=== PATIENT | male | born 1960 | race Caucasian/White ===

== ENCOUNTER 2024-03-16 10:29 | Outpatient (OUT) | payer BC, SELFPAY ==
[2024-03-16 11:04] LABS: Basophils Percent Auto 0.7 % (0.2-2.0); Eosinophils Absolute Auto 0.1 10^3/uL (0.0-0.7); Eosinophils Percent Auto 1.8 % (0.9-7.0); Hematocrit 32.4 % (42.0-54.0); Hemoglobin 10.7 g/dL (14.0-18.0); Immature Granulocytes Abs Auto 0.08 10^3/uL (0.00-0.03); Immature Granulocytes Pct Auto 2.8 % (0.0-0.5); Lymphocytes Absolute Auto 0.9 10^3/uL (1.2-3.8); Lymphocytes Percent Auto 31.6 % (20.5-60.0); Mean Corpuscular Hemoglobin 33.9 pg (25.9-34.0); Mean Corpuscular Volume 102.5 fL (80.0-94.0); Mean Platelet Volume 11.4 fL (9.5-13.5); Monocytes Absolute Auto 0.5 10^3/uL (0.3-0.8); Monocytes Percent Auto 19.1 % (1.7-12.0); Neutrophils Absolute Auto 1.2 10^3/uL (1.4-6.5); Platelet Count 145 10^3/uL (150-450); Red Blood Count 3.16 10^6/uL (4.70-6.10); White Blood Count 2.8 10^3/uL (4.0-11.0)
[2024-03-16 11:11] LABS: Estimated Average Glucose 177 mg/dL; Glycohemoglobin A1C 7.8 % (4.5-6.2)
[2024-03-16 11:22] LABS: Microalbumin Urine Random <1.3 mg/dL (<=30.0)
[2024-03-16 11:50] LABS: Cholesterol 85 mg/dL (<=200); HDL Cholesterol 28 mg/dL (40-60); Triglycerides 92 mg/dL (<=150); VLDL CHOLESTEROL 18.4 mg/dL
[2024-03-16 12:04] LABS: Prostate Specific Antigen Scrn 0.63 ng/mL (<=4.00)
== END 2024-03-16 10:30 | disposition home or self-care (01) ==
LOC: LAB 10:33
PROVIDERS: PCP Internal Medicine; Visit Provider Internal Medicine
DX: Z00.00 Encounter for general adult medical examination without abnormal findings (principal)
CPT/HCPCS: 36415; 80061; 82043; 83036; 85025; G0103

== ENCOUNTER 2024-09-04 12:05 | Outpatient (OUT) | payer BC, SELFPAY ==
[2024-09-04 13:11] LABS: Basophils Percent Auto 0.8 % (0.2-2.0); Eosinophils Percent Auto 0.8 % (0.9-7.0); Hematocrit 29.8 % (42.0-54.0); Hemoglobin 9.8 g/dL (14.0-18.0); Immature Granulocytes Abs Auto 0.05 10^3/uL (0.00-0.03); Immature Granulocytes Pct Auto 2.1 % (0.0-0.5); Lymphocytes Absolute Auto 0.7 10^3/uL (1.2-3.8); Lymphocytes Percent Auto 30.5 % (20.5-60.0); Mean Corpuscular HGB Conc 32.9 g/dL (29.9-35.2); Mean Corpuscular Hemoglobin 34.6 pg (25.9-34.0); Mean Corpuscular Volume 105.3 fL (80.0-94.0); Mean Platelet Volume 11.9 fL (9.5-13.5); Monocytes Absolute Auto 0.6 10^3/uL (0.3-0.8); Monocytes Percent Auto 22.6 % (1.7-12.0); Neutrophils Absolute Auto 1.1 10^3/uL (1.4-6.5); Neutrophils Percent Auto 43.2 % (43.0-75.0); Platelet Count 104 10^3/uL (150-450); Red Cell Distribution Width 14.3 % (11.0-15.0); White Blood Count 2.4 10^3/uL (4.0-11.0)
[2024-09-04 13:24] LABS: Chol HDL Ratio 2.8; Cholesterol 109 mg/dL (<=200); HDL Cholesterol 39 mg/dL (40-60); Triglycerides 76 mg/dL (<=150); VLDL CHOLESTEROL 15.2 mg/dL
[2024-09-04 13:27] LABS: Red Blood Count 2.83 10^6/uL (4.70-6.10)
== END 2024-09-04 12:06 | disposition home or self-care (01) ==
PROVIDERS: PCP Internal Medicine; Visit Provider Internal Medicine Cardiovascular Disease
DX: E78.5 Hyperlipidemia, unspecified (principal); I25.10 Atherosclerotic heart disease of native coronary artery without angina pectoris; Z79.899 Other long term (current) drug therapy; I25.5 Ischemic cardiomyopathy; I47.20 Ventricular tachycardia, unspecified
CPT/HCPCS: 36415; 80061; 85025

== ENCOUNTER 2024-09-04 12:14 | Outpatient (OUT) | payer BC, SELFPAY ==
[2024-09-04 13:20] LABS: Lactate Dehydrogenase 217 U/L (85-227)
[2024-09-04 13:23] LABS: Percent Iron Saturation 26.9 %
[2024-09-04 13:30] LABS: Alanine Aminotransferase 16 U/L (16-63); Albumin Globulin Ratio 0.8; Albumin Level 3.4 g/dL (3.4-5.0); Alkaline Phosphatase 73 U/L (46-116); Anion Gap 7.6; Aspartate Amino Transferase 15 U/L (15-37); BUN Creatinine Ratio 14.2; Bilirubin Total 0.6 mg/dL (0.2-1.0); Calcium 8.7 mg/dL (8.5-10.1); Carbon Dioxide 32.8 mmol/L (21.0-32.0); Chloride 105 mmol/L (98-107); Estimated GFR (African America >60 (>=60 mL/min/1.73m^2); Estimated GFR (Non-African Ame 51 (>=60 mL/min/1.73m^2); Globulin 4.2 g/dL; Glucose 102 mg/dL (74-106); Potassium 4.4 mmol/L (3.5-5.1); Sodium 141 mmol/L (136-145); Thyroid Stimulating Hormone 3.814 uIU/mL (0.358-3.740); Total Protein 7.6 g/dL (6.4-8.2)
[2024-09-05 04:07] LABS: Vitamin B12 260 pg/mL (232-1245)
== END 2024-09-04 12:15 | disposition home or self-care (01) ==
LOC: LAB 12:17
PROVIDERS: PCP Internal Medicine; Visit Provider Internal Medicine
DX: E78.5 Hyperlipidemia, unspecified (principal); I10 Essential (primary) hypertension; E11.65 Type 2 diabetes mellitus with hyperglycemia; D64.9 Anemia, unspecified; R53.83 Other fatigue; D61.818 Other pancytopenia; I25.10 Atherosclerotic heart disease of native coronary artery without angina pectoris; Z79.899 Other long term (current) drug therapy; I25.5 Ischemic cardiomyopathy; I47.20 Ventricular tachycardia, unspecified
CPT/HCPCS: 36415; 80053; 80061; 82607; 82728; 82746; 83540; 83550; 83615; 84443; 85025

== ENCOUNTER 2025-02-06 10:03 | Outpatient (OUT) | payer MEDICARE, OTHER, SELFPAY ==
--- OUTSIDE RECORDS SUMMARY | 2025-02-06 10:08 | XMS_ITS | Clinical Summary ---
Author Organization [facility] Address [address] [place], [place] [address] Care Team Providers Care Harness Installer Name Role Phone Berny Donovan Primary Care Provider [phone] Allergies Active Allergy Reactions Criticality Noted Date Comments Amoxicillin Unknown 07/27/2022 Doxycycline Hyclate Unknown 07/27/2022 Fenofibrate Micronized Unknown 07/27/2022 Medications ALPRAZolam (XANAX) 1 mg tablet Take 1 mg by mouth twice daily as needed. For Anxiety 07/01/2022 Active amiodarone (PACERONE) 200 mg tablet 07/21/2022 Active atorvastatin (LIPITOR) 20 mg tablet 05/27/2022 Active carvedilol (COREG) 25 mg tablet 05/27/2022 Active clopidogrel (PLAVIX) 75 mg tablet 05/27/2022 Active digoxin (LANOXIN) 125 mcg (0.125 mg) tablet 05/27/2022 Active glipiZIDE (GLUCOTROL) 10 mg tablet 05/27/2022 Active lisinopril (ZESTRIL, PRINIVIL) 5 mg tablet 05/27/2022 Active KLOR-CON M10 10 mEq tablet 05/27/2022 Active JANUVIA 50 mg tablet 05/27/2022 Active famotidine (PEPCID) 20 mg tablet Take 20 mg by mouth twice daily. Active aspirin 81 mg cap Take by mouth. Active linaGLIPtin (TRADJENTA) 5 mg tab Take 5 mg by mouth once daily. Active baclofen (LIORESAL) 10 mg tablet Take 10 mg by mouth three times daily. 07/18/2022 Active POTASSIUM ORAL Take by mouth. Active bumetanide (BUMEX) 1 mg tablet Take 1 mg by mouth once daily. Active nitroglycerin sublingual (NITROQUICK) 0.4 mg SL tablet Dissolve 0.4 mg under the tongue every 5 minutes as needed for chest pain. Active Family History Medical History Relation Comments Cancer Mother Heart disease Mother Cancer Sister Relation Status Comments Mother Sister Social History Tobacco Use Types Packs/Day Years Used Date Smoking Tobacco: Former Cigarettes Passive Smoke Exposure: Past Smokeless Tobacco: Never Tobacco Cessation:Counseling Given: Not Answered Alcohol Use Standard Drinks/Week Comments Not Currently 0 (1 standard drink = 0.6 oz pur e alcohol) Sex and Gender Information Value Date Recorded Sex Assigned at Not on file Legal Sex Male 2:58 PM EST Gender Identity Not on file Sexual Orientation Not on file Last Filed Vital Signs Vital Sign Reading Time Taken Comments Blood Pressure 133/61 07/28/2022 3:51 PM EST Pulse 64 07/28/2022 3:51 PM EST Temperature 36.6 C (97.9 F) 07/28/2022 3:51 PM EST Respiratory Rate 18 07/28/2022 3:51 PM EST Oxygen Saturation 98% 07/28/2022 3:51 PM EST Inhaled Oxygen Concentration - - Weight 143.2 kg (315 lb 12.8 oz) 07/28/2022 3:51 PM EST Height 188 cm (6' 2 ) 07/28/2022 3:51 PM EST Body Mass Index 40.55 07/28/2022 3:51 PM EST Plan of Treatment Health Maintenance Due Date Last Done Comments Abdominal Aortic Aneurysm Screening 1960 Anxiety Screening 01/03/1978 Depression Screening 01/03/1978 HIV Screening 01/03/1978 Hepatitis C Screening 01/03/1978 Lipid Screening 01/03/1995 CT Colonography 01/03/2005 Cologuard (FIT-DNA) 01/03/2005 Colonoscopy 01/03/2005 Colorectal Cancer Screening 01/03/2005 Fecal Occult Blood 01/03/2005 Sigmoidoscopy 01/03/2005 Pneumococcal Vaccine: 50+ (2 of 2 - PCV) 01/03/2010 05/22/2006 Shingrix Vaccine (1 of 2) 01/03/2010 Diabetes Screening 12/24/2024 12/24/2021, 12/24/2021 Advance Directive Discussion 01/03/2025 Influenza Vaccine (#1) 2025 , 05/22/2012, 05/22/2006 Prostate Cancer Screening Discussion 06/18/202705/23 DTaP,Tdap,Td Vaccine (2 - Tdap) 12/13/2030 RSV Vaccine (1 - 1-dose 75+ series) 01/03/2035 Insurance BLUE ACCESS PPO Care Teams Harness Installer Relationship Specialty Start Date End Date Berny Donovan DO [address] [place] [address] PCP - General Internal Medicine 07/19/22
--- OUTSIDE RECORDS SUMMARY | 2025-02-06 10:08 | XMS_ITS | Encounter Summary ---
Author Organization [facility] Address [address] [place] [address] Phone Care Team Providers Care Anode Machine Operator Name Role Phone Berny Donovan DO Primary Care Provider [phone] Encounter Details Date Type Department Care Team (Late st Contact Info) Description 07/07/[address] [facility] [address] [place] [address] Conversion, Onbase Social History Tobacco Use Types Packs/Day Years Used Date Smoking Tobacco: Never Assessed Sex and Gender Information Value Date Recorded Sex Assigned at Not on file Legal Sex Male 9:53 AM EST Gender Identity Not on file Sexual Orientation Not on file documented as of this encounter Plan of Treatment Upcoming Encounters Date Type Department Care Team (Late st Contact Info) Description 04/04/2025 2:10 PM EST Office Visit [facility] [address] [facility] [address] [place] [id number] Maria M Love MD [address]03 [facility] [place] [address] Scheduled Orders Name Type Priority Associated Diagnoses Orde r Schedule OUTSIDE LAB SCAN Lab Ordered: 07/07/2022 documented as of this encounter Visit Diagnoses Not on filedocumented in this encounter Care Teams Anode Machine Operator Relationship Specialty Start Date End Date Berny Donovan DO [address] [place] [address] PCP - General 05/22/99 documented as of this encounter
--- OUTSIDE RECORDS SUMMARY | 2025-02-06 10:08 | XMS_ITS | Encounter Summary ---
Author Organization [facility] Address [address] [place] [address] Phone Care Team Providers Care Associate Chemist Name Role Phone Berny Donovan Primary Care Provider [phone] Encounter Details Date Type Department Care Team (Late st Contact Info) Description 08/05/2024 Scanned Document [facility] [address] [place] [address] Scanning, Generic Provider Social History Tobacco Use Types Packs/Day Years Used Date Smoking Tobacco: Former Cigarettes Q uit: 2002 Smokeless Tobacco: Never Alcohol Use Standard Drinks/Week Comments Yes 0 (1 standard drink = 0.6 oz pur e alcohol) occasional Sex and Gender Information Value Date Recorded Sex Assigned at Not on file Legal Sex Male 9:53 AM EST Gender Identity Not on file Sexual Orientation Not on file documented as of this encounter Plan of Treatment Upcoming Encounters Date Type Department Care Team (Late st Contact Info) Description 04/04/2025 2:10 PM EST Office Visit [facility] [address] [facility] [address] [place] [phone] Maria M Love MD [address]03 [facility] [address] [place] [address] Scheduled Orders Name Type Priority Associated Diagnoses Orde r Schedule Pulmonary function testing PFT Ordered: 08/05/2024 documented as of this encounter Procedures Procedure Name Priority Date/Time Associated Diagnosis Comments OUTSIDE IMAGING SCAN 08/05/2024 documented in this encounter Results * OUTSIDE IMAGING SCAN (08/05/2024) Anatomical Region Laterality Modality Other Narrative 08/05/2024 Ordered by an unspecified provider. us Generic Provider Scanning OUTSIDE SCAN Final Result documented in this encounter Visit Diagnoses Not on filedocumented in this encounter Care Teams Associate Chemist Relationship Specialty Start Date End Date Berny Donovan DO [address] [place] [address] PCP - General 05/22/99 documented as of this encounter
--- OUTSIDE RECORDS SUMMARY | 2025-02-06 10:08 | XMS_ITS | Clinical Summary ---
Author Organization [facility] Address [id number] [address] [place] [address] Care Team Providers Care Steam Pressure Chamber Operator Name Role Phone Berny Donovan Marc MERCADO Primary Care Provider [phone] Allergies Active Allergy Reactions Criticality Noted Date Comments Fenofibrate Micronized Itching 12/24/2021 Family History Medical History Relation Name Comments Cancer Father Relation Name Status Comments Father Social History Tobacco Use Types Packs/Day Years Used Date Smoking Tobacco: Former Smokeless Tobacco: Never Alcohol Use Standard Drinks/Week Comments Never 0 (1 standard drink = 0.6 oz pur e alcohol) Sex and Gender Information Value Date Recorded Sex Assigned at Not on file Legal Sex Male 9:52 AM EDT Gender Identity Not on file Sexual Orientation Not on file Last Filed Vital Signs Vital Sign Reading Time Taken Comments Blood Pressure 133/88 12/24/2021 2:44 PM EDT Pulse 72 12/24/2021 2:44 PM EDT Temperature 36.7 C (98.1 F) 12/24/2021 10:07 AM EDT Respiratory Rate 18 12/24/2021 2:44 PM EDT Oxygen Saturation 100% 12/24/2021 2:44 PM EDT Inhaled Oxygen Concentration - - Weight 136.1 kg (300 lb) 12/24/2021 10:07 AM EDT Height 188 cm (6' 2 ) 12/24/2021 10:07 AM EDT Body Mass Index 38.52 12/24/2021 10:07 AM EDT Plan of Treatment Health Maintenance Due Date Last Done Comments Depression Screening 1972 Tobacco Screening 1972 Adult BMI Screening 01/03/1978 Zoster (Shingles) Vaccine (1 of 2) 01/03/2010 Fall Risk Screening 01/03/2025 Influenza Vaccine 01/20/2025 05/05/2021 DTaP,Tdap and Td Vaccines (2 - Tdap) 12/13/203011/20 Medical Devices Not on file Insurance ANTH Care Teams Steam Pressure Chamber Operator Relationship Specialty Start Date End Date Berny Donovan DO [address] [place] [id number] PCP - General Internal Medicine 12/24/21
--- OUTSIDE RECORDS SUMMARY | 2025-02-06 10:08 | XMS_ITS | Encounter Summary ---
Author Organization [facility] Address [address] [place] [address] Phone Care Team Providers Care Bender Machine Operator Name Role Phone Berny Donovan Primary Care Provider [phone] Encounter Details Date Type Department Care Team (Late st Contact Info) Description 08/12/2024 Scanned Document [facility] [address] [place] [address] Scanning, Generic Provider Social History [...] on file Sexual Orientation Not on file COVID-19 Exposure Response Date Recorded In the last 10 days, have yo u been in contact with someone who was confirmed or suspected to have Coronavirus/COVID-19? No / Unsure 08/15/2024 10:43 AM EDT documented as of this encounter Plan of Treatment Upcoming Encounters Date Type Department Care Team (Late st Contact Info) Description 04/04/2025 2:10 PM EST Office Visit [facility] [address] [facility] [address] [place] [address] Maria M Love MD 703 [facility] [address] [place] [address] documented as of this encounter Procedures Procedure Name Priority Date/Time Associated Diagnosis Comments ECHOCARDIOGRAM 08/12/2024 documented in this encounter Results * Echocardiogram (08/12/2024) Narrative 08/12/2024 Ordered by an unspecified provider. us Generic Provider Scanning CV ECHO PROCEDURES Fin al Result documented in this encounter Visit Diagnoses Not on filedocumented in this encounter Care Teams Bender Machine Operator Relationship Specialty Start Date End Date Berny Donovan DO [address] [place] [address] PCP - General 05/22/99 documented as of this encounter
--- OUTSIDE RECORDS SUMMARY | 2025-02-06 10:08 | XMS_ITS | Clinical Summary ---
Author Organization [facility] Address [address] [place] [address] Care Team Providers Care Soaking Room Operator Name Role Phone Berny Donovan Primary Care Provider [phone] Allergies Active Allergy Reactions Criticality Noted Date Comments Amoxicillin Unknown 07/27/2022 Fenofibrate Itching,Rash Low 12/24/2021 Cephalexin Itching High 01/26/2023 Medications ALPRAZolam (Xanax) 1 MG tablet Take 1 mg by mouth in the morning and 1 mg before bedtime. Active amiodarone (Pacerone) 200 MG tablet 1 (one) time each day at the same time. 3 Active ASPIRIN 81 MG chewable tablet 1 (one) time each day at the same time. Active atorvastatin (Lipitor) 20 MG tablet 1 (one) time each day at the same time. 3 Active baclofen (Lioresal) 10 MG tablet Take 10 mg by mouth in the morning and 10 mg at noon and 10 mg in the evening. 3 Active bumetanide (Bumex) 1 MG tablet 1 (one) time each day at the same time. Active carvedilol (Coreg) 25 MG tablet every 12 (twelve) hours. 3 Active cefuroxime (Ceftin) 500 MG tablet Take 500 mg by mouth every 12 (twelve) hours. 3 Active Loprox 0.77 % cream every 12 (twelve) hours. Active clopidogrel (Plavix) 75 MG tablet 1 (one) time each day at the same time. 3 Active Santyl 250 UNIT/GM ointment 1 application 1 (one) time each day at the same time. Active digoxin (Lanoxin) 125 MCG tablet 3 Active famotidine (Pepcid) 20 MG tablet Take 20 mg by mouth in the morning and 20 mg in the evening. Active glipiZIDE (Glucotrol) 10 MG tablet every 12 (twelve) hours. 3 Active linaGLIPtin (Tradjenta) 5 MG tablet Take 5 mg by mouth in the morning. Active linaGLIPtin (Tradjenta) 5 MG tablet 1 (one) time each day at the same time. Active lisinopril 5 MG tablet 1 (one) time each day at the same time. 3 Active nitroglycerin (Nitrostat) 0.4 MG SL tablet Active potassium chloride ER (Micro-K) 10 MEQ ER capsule every 12 (twelve) hours. Active potassium chloride CR (KLOR-CON) 10 MEQ ER tablet 3 Active Januvia 50 MG tablet 3 Active Family History Medical History Relation Name Comments Cancer Father Diabetes Maternal Grandmother Heart disease Mother Hypertension Mother Relation Name Status Comments Father Maternal Grandmother Mother Social History Tobacco Use Types Packs/Day Years Used Date Smoking Tobacco: Never Smokeless Tobacco: Never Alcohol Use Standard Drinks/Week Comments Never 0 (1 standard drink = 0.6 oz pur e alcohol) caffeine: none Sex and Gender Information Value Date Recorded Sex Assigned at Not on file Legal Sex Male 7:00 PM EDT Gender Identity Not on file Sexual Orientation Not on file Last Filed Vital Signs Vital Sign Reading Time Taken Comments Blood Pressure 124/64 01/26/2023 3:01 PM EDT Pulse 64 01/26/2023 3:01 PM EDT Temperature 36.4 C (97.5 F) 01/26/2023 3:01 PM EDT Respiratory Rate - - Oxygen Saturation - - Inhaled Oxygen Concentration - - Weight - - Height - - Body Mass Index - - Plan of Treatment Not on file Insurance BC[employer] Care Teams Soaking Room Operator Relationship Specialty Start Date End Date Berny Donovan DO PCP - General Internal Medicine 01/24/23
--- OUTSIDE RECORDS SUMMARY | 2025-02-06 10:09 | XMS_ITS | Encounter Summary ---
Author Organization [facility] Address [address] [place] [address] Phone Care Team Providers Care Systems Engineer Name Role Phone Berny Donovan DO Primary Care Provider [phone] Reason for Visit * Reason Onset Date Comments Med Refill 01/23/2025 Encounter Details Date Type Department Care Team (Late st Contact Info) Description 01/23/[address] [place] [address] Nga Melendez LPN Benign essential hypertension; Atherosclerosis of [place] coronary artery of [place] heart without angina pectoris Social History Tobacco Use Types Packs/Day Years [...] on file documented as of this encounter Miscellaneous Notes * Telephone Encounter - Nga Melendez LPN - 01/23/2025 12:56 PM EDT Refill request. Nov visit pending documented in this encounter Plan of Treatment Upcoming Encounters Date Type Department Care Team (Late st Contact Info) Description 04/04/2025 2:10 PM EST Office Visit [place] [id number] [facility] [address] [place] [address] Maria M Love MD 703 [facility] [address] [place] [address] documented as of this encounter Visit Diagnoses Diagnosis Benign essential hypertension Essential hypertension, benign Atherosclerosis of [place] coronary artery of [place] heart without angina pectoris documented in this encounter Care Teams Systems Engineer Relationship Specialty Start Date End Date Berny Donovan DO [address] [place] [address] PCP - General 05/22/99 documented as of this encounter
--- OUTSIDE RECORDS SUMMARY | 2025-02-06 10:09 | XMS_ITS | Clinical Summary ---
Author Organization [facility] Address [address] [place] [address] Phone Care Team Providers Care Gas Dispatcher Name Role Phone Berny Donovan DO Primary Care Provider [phone] Allergies Active Allergy Reactions Criticality Noted Date Comments Fenofibrate Itching 05/17/2023 Iodinated Contrast Media Hives 05/17/2023 Medications ALPRAZolam (Xanax) 1 mg tablet Take 1 tablet (1 mg) by mouth 2 times a day. Active glipiZIDE XL (Glucotrol XL) 10 mg 24 hr tablet Take 1 tablet (10 mg) by mouth 2 times a day. Active Januvia 50 mg tablet Take 1 tablet (50 mg) by mouth once daily. 2 Active aspirin 81 mg EC tabletIndications: Atherosclerosis of [place] coronary artery of [place] heart without angina pectoris Take 1 tablet (81 mg) by mouth once daily. 4 03/15/20 25 Active amiodarone (Pacerone) 200 mg tabletIndications: Paroxysmal atrial fibrillation (Multi) Take 1 tablet (200 mg) by mouth once daily. 90 tablet 1 5 01/24/20 26 Active atorvastatin (Lipitor) 20 mg tabletIndications: Mixed hyperlipidemia Take 1 tablet (20 mg) by mouth once daily at bedtime. 90 tablet 3 5 01/24/20 26 Active bumetanide (Bumex) 1 mg tabletIndications: Ischemic cardiomyopathy Take 1 tablet (1 mg) by mouth once daily as needed (1-2 tabs as needed with potassium). 90 tablet 1 5 01/24/20 26 Active carvedilol (Coreg) 25 mg tabletIndications: Ischemic cardiomyopathy Take 1 tablet (25 mg) by mouth 2 times a day. 180 tablet 3 5 Active clopidogrel (Plavix) 75 mg tabletIndications: Mixed hyperlipidemia,Ath erosclerosis of [place] coronary artery of [place] heart without angina pectoris Take 1 tablet (75 mg) by mouth once daily. 90 tablet 3 5 01/24/20 26 Active digoxin (Lanoxin) 125 MCG tabletIndications: Ischemic cardiomyopathy,Ath erosclerosis of [place] coronary artery of [place] heart without angina pectoris,Ventricul ar tachycardia (Multi),Benign essential hypertension Take 1 tablet (125 mcg) by mouth once daily. 90 tablet 3 5 01/24/20 26 Active potassium chloride CR 10 mEq ER tabletIndications: Ischemic cardiomyopathy Take 2 tablets (20 mEq) by mouth every other day. 90 tablet 3 5 01/24/20 26 Active lisinopril 5 mg tabletIndications: Benign essential hypertension Take 1 tablet (5 mg) by mouth once daily. 90 tablet 2 5 Active nitroglycerin (Nitrostat) 0.4 mg SL tabletIndications: Atherosclerosis of [place] coronary artery of [place] heart without angina pectoris Place 1 tablet (0.4 mg) under the tongue every 5 minutes if needed for chest pain. 90 tablet 3 5 Active famotidine (Pepcid) 20 mg tablet Take 1 tablet (20 mg) by mouth once daily. 01/23/20 25 Discontin ued(Thera py completed ) linaGLIPtin (Tradjenta) 5 mg tablet Take 1 tablet (5 mg) by mouth once daily. 01/23/20 25 Discontin ued(Thera py completed ) atorvastatin (Lipitor) 20 mg tabletIndications: Mixed hyperlipidemia Take 1 tablet (20 mg) by mouth once daily at bedtime. 90 tablet 3 5 01/23/20 25 Discontin ued(Reord er) carvedilol (Coreg) 25 mg tabletIndications: Ischemic cardiomyopathy Take 1 tablet (25 mg) by mouth 2 times a day. 180 tablet 3 5 01/23/20 25 Discontin ued(Reord er) digoxin (Lanoxin) 125 MCG tabletIndications: Atherosclerosis of [place] coronary artery of [place] heart without angina pectoris,Ischemic cardiomyopathy,Santy tricular tachycardia (Multi),Benign essential hypertension Take 1 tablet (125 mcg) by mouth once daily. 90 tablet 2 5 01/23/20 25 Discontin ued(Reord er) lisinopril 5 mg tabletIndications: Benign essential hypertension Take 1 tablet (5 mg) by mouth once daily. 90 tablet 1 5 01/24/20 25 Discontin ued(Reord er) potassium chloride CR 10 mEq ER tabletIndications: Ischemic cardiomyopathy Take 2 tablets (20 mEq) by mouth every other day. 90 tablet 2 5 01/23/20 25 Discontin ued(Reord er) clopidogrel (Plavix) 75 mg tabletIndications: Atherosclerosis of [place] coronary artery of [place] heart without angina pectoris,Mixed hyperlipidemia Take 1 tablet (75 mg) by mouth once daily. 90 tablet 2 5 01/23/20 25 Discontin ued(Reord er) bumetanide (Bumex) 1 mg tabletIndications: Ischemic cardiomyopathy Take 1 tablet (1 mg) by mouth once daily as needed (1-2 tabs as needed with potassium). 90 tablet 1 5 01/23/20 25 Discontin ued(Reord er) amiodarone (Pacerone) 200 mg tabletIndications: Paroxysmal atrial fibrillation (Multi) Take 1 tablet (200 mg) by mouth once daily. 90 tablet 1 5 01/23/20 25 Discontin ued(Reord er) nitroglycerin (Nitrostat) 0.4 mg SL tabletIndications: Atherosclerosis of [place] coronary artery of [place] heart without angina pectoris Place 1 tablet (0.4 mg) under the tongue every 5 minutes if needed for chest pain. 90 tablet 3 5 01/24/20 25 Discontin ued(Reord er) Active Problems Problem Noted Date Diagnosed Date High risk medication use 08/15/2024 BMI 39.0-39.9,adult 03/15/2024 Former smoker 03/15/[address] 03/15/2024 Morbid obesity with BMI of 40.0-44.9, adult (Mul ti) 06/12/2023 Anxiety 05/17/2023 Atherosclerosis of [place] co ronary artery of [place] heart without angina pectoris 05/17/2023 Benign essential hypertension 05/17/2023 Diabetes mellitus (Multi) 05/17/2023 Hyperlipidemia 05/17/2023 Hyperthyroidism 05/17/2023 Ischemic cardiomyopathy 05/17/2023 Ventricular tachycardia (Multi) 05/17/2023 Encounters Date Type Department Care Team Description 01/23/[address] [place] [address] Nga Melendez LPN Benign essential hypertension; Atherosclerosis of [place] coronary artery of [place] heart without angina pectoris 01/22/[address] [place] [address] Tequila Cerrato LPN Paroxysmal atrial fibrillation (Multi); Mixed hyperlipidemia; Ischemic cardiomyopathy; Atherosclerosis of [place] coronary artery of [place] heart without angina pectoris; Ventricular tachycardia (Multi); Benign essential hypertension 12/26/2024 Refill [facility] [address] [facility] [address] [place] [address] Subha Judd RN Atherosclerosis of [place] coronary artery of [place] heart without angina pectoris from Last 3 Months Immunizations Immunization Administration Dates Next Due Flu vaccine, quadrivalent, r ecombinant, preservative free, adult (FLUBLOK) 05/05/2021 Influenza, Unspecified 05/22/2012,05/22/2006 Pneumococcal polysaccharide vaccine, 23-valent, age 2 years and older (PNEUMOVAX 23) 05/22/2006 Family History Medical History Relation Name Comments Coronary artery disease Mother Relation Name Status Comments Mother Social History Tobacco Use Types Packs/Day Years Used Date Smoking Tobacco: Former Cigarettes Q uit: 2003 Smokeless Tobacco: Never Tobacco Cessation:Counseling Given: Not Answered Alcohol Use Standard Drinks/Week Comments Yes 0 (1 standard drink = 0.6 oz pur e alcohol) occasional Sex and Gender Information Value Date Recorded Sex Assigned at Not on file Legal Sex Male 9:53 AM EST Gender Identity Not on file Sexual Orientation Not on file Last Filed Vital Signs Vital Sign Reading Time Taken Comments Blood Pressure 122/58 08/15/2024 10:54 AM EDT Pulse 52 08/15/2024 10:54 AM EDT Temperature - - Respiratory Rate - - Oxygen Saturation - - Inhaled Oxygen Concentration - - Weight 141 kg (311 lb) 08/15/2024 10:54 AM EDT Height 188 cm (6' 2 ) 08/15/2024 10:54 AM EDT Body Mass Index 39.93 08/15/2024 10:54 AM EDT Plan of Treatment Upcoming Encounters Date Type Department Care Team (Late st Contact Info) Description 04/04/2025 2:10 PM EST Office Visit [facility] 703 [facility] [address] [place] [address] Maria M Love MD [address] [facility] [address] [place] [address] Health Maintenance Due Date Last Done Comments CT Colonography 1960 Colonoscopy 1960 Colorectal Cancer Screening 1960 Diabetes: Hemoglobin A1C 1960 Diabetes: Urine Protein Screening 1960 FIT-DNA (Cologuard) 1960 FIT 1960 Lipid Panel 1960 Sigmoidoscopy 1960 TSH Level 1960 Yearly Adult Physical 1960 MMR Vaccines (1 of 1 - Standard series) 01/03/1961 Diabetes: Retinopathy Screening 01/03/1970 Hepatitis C Screening 01/03/1978 DTaP/Tdap/Td Vaccines (1 - Tdap) 01/03/1982 Pneumococcal Vaccine (2 of 2 - PCV) 05/22/2007 05/22/2006 PSA Prostate Cancer Screening 01/03/2010 Zoster Vaccines (1 of 2) 01/03/2010 RSV High Risk: (Elderly (60+ ) or Population) (1 - Risk 60-74 years 1-dose series) 2020 Abdominal Aortic Aneurysm (AAA) Screening 01/03/2025 COVID-19 Vaccine (1 - 2023-2 5 season) 2025 Influenza Vaccine (#1) 2025 1, 05/22/2012, 05/22/2006 HIB Vaccines Aged Out No longer eligi ble based on patient's age to complete this topic HPV Vaccines Aged Out No longer eligi ble based on patient's age to complete this topic Hepatitis A Vaccines Aged Out No long er eligible based on patient's age to complete this topic Hepatitis B Vaccines Aged Out No long er eligible based on patient's age to complete this topic IPV Vaccines Aged Out No longer eligi ble based on patient's age to complete this topic Meningococcal Vaccine Aged Out No marshal cassy eligible based on patient's age to complete this topic Rotavirus Vaccines Aged Out No longer eligible based on patient's age to complete this topic Insurance [facility] Care Teams Gas Dispatcher Relationship Specialty Start Date End Date Berny Donovan DO [address] [place] [address] PCP - General 05/22/99
--- OUTSIDE RECORDS SUMMARY | 2025-02-06 10:09 | XMS_ITS | Encounter Summary ---
Author Organization [facility] Address [address] [place] [address] Phone Care Team Providers Care Billposter Name Role Phone Berny Donovan DO Primary Care Provider [phone] Encounter Details Date Type Department Care Team (Late st Contact Info) Description 02/05/2021 Orders Only [facility] [address] [place] [address] Conversion, Onbase Social History Tobacco Use Types [...] Description 04/04/2025 2:10 PM EST Office Visit [facility] 703 [facility] [address] [place] [address] Maria M Love MD 703 [facility], [address] [place] [address] Scheduled Orders Name Type Priority Associated Diagnoses Orde r Schedule OUTSIDE LAB SCAN Lab Ordered: 02/05/2021 documented as of this encounter Visit Diagnoses Not on filedocumented in this encounter Care Teams Billposter Relationship Specialty Start Date End Date Berny Donovan DO [address] [place] [address] PCP - General 05/22/99 documented as of this encounter
--- OUTSIDE RECORDS SUMMARY | 2025-02-06 10:09 | XMS_ITS | Encounter Summary ---
Author Organization [facility] Address [address] [place] [address] Phone Care Team Providers Care Orthopaedic Physician Assistant Name Role Phone Berny Donovan Primary Care Provider [phone] Encounter Details Date Type Department Care Team (Late st Contact Info) Description 07/31/2023 Scanned Document [facility] [address] [place] [address] Scanning, Generic Provider Social History [...] Description 04/04/2025 2:10 PM EST Office Visit [facility] 703 [facility] [address] [place] [address] Maria M Love MD 703 [facility] [address], [address] [place] [address] documented as of this encounter Procedures Procedure Name Priority Date/Time Associated Diagnosis Comments OUTSIDE IMAGING SCAN 07/31/2023 OUTSIDE IMAGING SCAN 07/31/2023 documented in this encounter Results * OUTSIDE IMAGING SCAN (07/31/2023) Anatomical Region Laterality Modality Other Narrative 07/31/2023 Ordered by an unspecified provider. us Generic Provider Scanning OUTSIDE SCAN Final Result * OUTSIDE IMAGING SCAN (07/31/2023) Anatomical Region Laterality Modality Other Narrative 07/31/2023 Ordered by an unspecified provider. us Generic Provider Scanning OUTSIDE SCAN Final Result documented in this encounter Visit Diagnoses Not on filedocumented in this encounter Care Teams Orthopaedic Physician Assistant Relationship Specialty Start Date End Date Berny Donovan DO [address] [place] [address] PCP - General 05/22/99 documented as of this encounter
--- OUTSIDE RECORDS SUMMARY | 2025-02-06 10:09 | XMS_ITS | Encounter Summary ---
Author Organization [facility] Address [address] [place] [address] Phone Care Team Providers Care Sdv Pilot/Navigator/Dds Operator Name Role Phone Berny Donovan DO Primary Care Provider [phone] Encounter Details Date Type Department Care Team (Late st Contact Info) Description 01/27/2021 Orders Only [facility] [address] [place] [address] Conversion, Onbase Social History Tobacco Use Types [...] Description 04/04/2025 2:10 PM EST Office Visit [facility] [address] [phone] Maria M Love MD 703 [facility], [address] [place] [address] Scheduled Orders Name Type Priority Associated Diagnoses Orde r Schedule OUTSIDE LAB SCAN Lab Ordered: 01/27/2021 OUTSIDE LAB SCAN Lab Ordered: 01/27/2021 documented as of this encounter Visit Diagnoses Not on filedocumented in this encounter Care Teams Sdv Pilot/Navigator/Dds Operator Relationship Specialty Start Date End Date Berny Donovan DO [address] [place] [address] PCP - General 05/22/99 documented as of this encounter
--- OUTSIDE RECORDS SUMMARY | 2025-02-06 10:09 | XMS_ITS | Encounter Summary ---
Author Organization [facility] Address [address] [place] [address] Phone Care Team Providers Care Hospital Wellness Coordinator Name Role Phone Berny Donovan Primary Care Provider [phone] Encounter Details Date Type Department Care Team (Late st Contact Info) Description 02/14/2023 Scanned Document [facility] [address] [place] [address] Conversion, Onbase Social History Tobacco Use Types [...] 04/04/2025 2:10 PM EST Office Visit [facility] [address] [phone] Maria M Love MD 703 [facility], [address] [place] [address] documented as of this encounter Procedures Procedure Name Priority Date/Time Associated Diagnosis Comments OUTSIDE GENERIC TESTING 02/14/2023 documented in this encounter Results * OUTSIDE GENERIC TESTING (02/14/2023) Anatomical Region Laterality Modality Other Narrative 02/14/2023 Ordered by an unspecified provider. us Onbase Conversion OUTSIDE SCAN Final Result documented in this encounter Visit Diagnoses Not on filedocumented in this encounter Care Teams Hospital Wellness Coordinator Relationship Specialty Start Date End Date Berny Donovan DO [address] [facility] [place] [address] PCP - General 05/22/99 documented as of this encounter
--- OUTSIDE RECORDS SUMMARY | 2025-02-06 10:09 | XMS_ITS | Encounter Summary ---
Author Organization [facility] Address [facility] [place] [id number] Care Team Providers Care Lvn Name Role Phone Berny Donovan DO Primary Care Provider [phone] Source Comments In the event this information is protected by the Federal Confidentiality of Alcohol and Drug AbusePatient Records regulations: The Federal rules restrict any use of the information to criminally investigate or prosecute any alcohol or drug abuse patient.[facility] Encounter Details Date Type Department Care Team (Latest Contact Info) Description 07/20/2022 H&P External-NonCCF Provider, External, MARYBETH Do not enter address information under generic External Provider. Social History Tobacco Use Types Packs/Day Years Used Date Smoking Tobacco: Never Assessed Sex and Gender Information Value Date Recorded Sex Assigned at Not on file Legal Sex Male 2:58 PM EST Gender Identity Not on file Sexual Orientation Not on file documented as of this encounter Plan of Treatment Not on file documented as of this encounter Visit Diagnoses Not on filedocumented in this encounter Care Teams Lvn Relationship Specialty Start Date End Date Berny Donovan DO [address] [id number] PCP - General Internal Medicine 07/19/22 documented as of this encounter
--- OUTSIDE RECORDS SUMMARY | 2025-02-06 10:09 | XMS_ITS | Encounter Summary ---
Author Organization [facility] Address [address] [place] [address] Phone Care Team Providers Care Seismic Plotter Name Role Phone Berny Donovan Primary Care Provider Reason for Visit * Reason Onset Date Comments Med Refill 01/22/2025 Encounter Details Date Type Department Care Team (Late st Contact Info) Description 01/22/[address] [place] [address] Tequila Cerrato LPN Paroxysmal atrial fibrillation (Multi); Mixed hyperlipidemia; Ischemic cardiomyopathy; Atherosclerosis of [place] coronary artery of [place] heart without angina pectoris; Ventricular tachycardia (Multi); Benign essential hypertension Social History Tobacco Use Types Packs/Day Years [...] encounter Miscellaneous Notes * Telephone Encounter - Tequila Cerrato LPN - 01/22/2025 1:42 PM EDT Changed pharmacy. documented in this encounter Plan of Treatment Upcoming Encounters Date Type Department Care Team (Late st Contact Info) Description 04/04/2025 2:10 PM EST Office Visit [facility] 703 [facility] [address] [place] [address] Maria M Love MD [address] [facility] 2, [address] [place] [address] documented as of this encounter Visit Diagnoses Diagnosis Paroxysmal atrial fibrillation (Multi) Atrial fibrillation Mixed hyperlipidemia Ischemic cardiomyopathy Other specified forms of chronic ischemic heart disease Atherosclerosis of [place] coronary artery of [place] heart without angina pectoris Ventricular tachycardia (Multi) Paroxysmal ventricular tachycardia Benign essential hypertension Essential hypertension, benign documented in this encounter Care Teams Seismic Plotter Relationship Specialty Start Date End Date Berny Donovan DO [address] [place] [address] PCP - General 05/22/99 documented as of this encounter
--- OUTSIDE RECORDS SUMMARY | 2025-02-06 10:09 | XMS_ITS | Encounter Summary ---
Author Organization [facility] Address [address] [place] [address] Phone Care Team Providers Care Machinist Bench Name Role Phone Berny Donovan DO Primary Care Provider [phone] Encounter Details Date Type Department Care Team (Late st Contact Info) Description 04/07/2020 Orders Only [facility] [address] [place] [address] Conversion, Onbase Social History Tobacco Use Types [...] Description 04/04/2025 2:10 PM EST Office Visit [facility] 703 [facility] [address] [place] [phone] Maria M Love MD 7[address] [facility] 2, [address] [place] [address] Scheduled Orders Name Type Priority Associated Diagnoses Orde r Schedule OUTSIDE LAB SCAN Lab Ordered: 04/07/2020 documented as of this encounter Visit Diagnoses Not on filedocumented in this encounter Care Teams Machinist Bench Relationship Specialty Start Date End Date Berny Donovan DO [address] [place] [place] [address] PCP - General 05/22/99 documented as of this encounter
--- OUTSIDE RECORDS SUMMARY | 2025-02-06 10:09 | XMS_ITS | Encounter Summary ---
Author Organization [facility] Address [address] [place] [address] Phone Care Team Providers Care Industrial Education Teacher Name Role Phone Berny Donovan Primary Care Provider [phone] Encounter Details Date Type Department Care Team (Late st Contact Info) Description 03/16/2024 Scanned Document [facility] [address] [place] [address] Scanning, Generic Provider Social History [...] suspected to have Coronavirus/COVID-19? No / Unsure 03/15/2024 3:09 PM EDT documented as of this encounter Plan of Treatment Upcoming Encounters Date Type Department Care Team (Late st Contact Info) Description 04/04/2025 2:10 PM EST Office Visit [facility] 703 [facility] [address] [place] [address] Maria M Love MD 703 [facility] 2, [address] [place] [address] documented as of this encounter Visit Diagnoses Not on filedocumented in this encounter Care Teams Industrial Education Teacher Relationship Specialty Start Date End Date Berny Donovan DO [address] [place] [address] PCP - General 05/22/99 documented as of this encounter
--- OUTSIDE RECORDS SUMMARY | 2025-02-06 10:09 | XMS_ITS | Encounter Summary ---
Author Organization [facility] Address [address] [place] [address] Phone Care Team Providers Care Firer Marine Name Role Phone Berny Donovan DO Primary Care Provider [phone] Encounter Details Date Type Department Care Team (Late st Contact Info) Description 02/09/2021 Orders Only [facility] [address] [place] [address] Conversion, Onbase Social History Tobacco Use Types [...] Description 04/04/2025 2:10 PM EST Office Visit [facility] [address] [phone] Maria M Love MD 703 [facility] 2, [address] [place] [address] Scheduled Orders Name Type Priority Associated Diagnoses Orde r Schedule OUTSIDE LAB SCAN Lab Ordered: 02/09/2021 OUTSIDE LAB SCAN Lab Ordered: 02/09/2021 documented as of this encounter Visit Diagnoses Not on filedocumented in this encounter Care Teams Firer Marine Relationship Specialty Start Date End Date Berny Donovan DO [address] [place] [address] PCP - General 05/22/99 documented as of this encounter
--- OUTSIDE RECORDS SUMMARY | 2025-02-06 10:09 | XMS_ITS | Encounter Summary ---
Author Organization [facility] Address [address] [place] [address] Phone Care Team Providers Care Lead Refiner Name Role Phone Berny Donovan DO Primary Care Provider [phone] Encounter Details Date Type Department Care Team (Late st Contact Info) Description 09/28/2020 Orders Only [facility] [address] [place] [address] Conversion, Onbase Social History Tobacco Use Types [...] Description 04/04/2025 2:10 PM EST Office Visit [facility] 703 [facility] [address] [place] [phone] Maria M Love MD 703 [facility] 2, [address] [place] [address] Scheduled Orders Name Type Priority Associated Diagnoses Orde r Schedule OUTSIDE LAB SCAN Lab Ordered: 09/28/2020 documented as of this encounter Visit Diagnoses Not on filedocumented in this encounter Care Teams Lead Refiner Relationship Specialty Start Date End Date Berny Donovan DO [address] [place] [address] PCP - General 05/22/99 documented as of this encounter
--- OUTSIDE RECORDS SUMMARY | 2025-02-06 10:09 | XMS_ITS | Encounter Summary ---
Author Organization [facility] Address [address] [place] [address] Phone Care Team Providers Care Machine Zipper Trimmer Name Role Phone Berny Donovan Primary Care Provider [phone] Encounter Details Date Type Department Care Team (Late st Contact Info) Description 09/04/2024 Scanned Document [facility] [address] [place] [address] Scanning, Generic Provider Social History [...] Description 04/04/2025 2:10 PM EST Office Visit [facility] [address] [facility] [address] [place] [address] Maria M Love MD [address] [facility] [address] [place] [address] documented as of this encounter Procedures Procedure Name Priority Date/Time Associated Diagnosis Comments OUTSIDE LAB SCAN 09/04/2024 OUTSIDE LAB SCAN 09/04/2024 documented in this encounter Results * OUTSIDE LAB SCAN (09/04/2024) Narrative 09/04/2024 Ordered by an unspecified provider. us Generic Provider Scanning OUTSIDE SCAN Final Result * OUTSIDE LAB SCAN (09/04/2024) Narrative 09/04/2024 Ordered by an unspecified provider. us Generic Provider Scanning OUTSIDE SCAN Final Result documented in this encounter Visit Diagnoses Not on filedocumented in this encounter Care Teams Machine Zipper Trimmer Relationship Specialty Start Date End Date Berny Donovan DO [address] [place] [place] [address] PCP - General 05/22/99 documented as of this encounter
--- OUTSIDE RECORDS SUMMARY | 2025-02-06 10:09 | XMS_ITS | Encounter Summary ---
Author Organization [facility] Address [address] [place] [address] Phone Care Team Providers Care Underwear Hemmer Name Role Phone Berny Donovan DO Primary Care Provider Encounter Details Date Type Department Care Team (Late st Contact Info) Description 02/01/2020 Orders Only [facility] [address] [place] [address] Conversion, Onbase Social History Tobacco Use Types [...] Office Visit [facility] [address] [facility] [address] [place] [id number] Maria M Love MD [address] [facility] [address] [place] [address] Scheduled Orders Name Type Priority Associated Diagnoses Orde r Schedule OUTSIDE LAB SCAN Lab Ordered: 02/01/2020 documented as of this encounter Visit Diagnoses Not on filedocumented in this encounter Care Teams Underwear Hemmer Relationship Specialty Start Date End Date Berny Donovan DO [address] [place] [address] PCP - General 05/22/99 documented as of this encounter
--- OUTSIDE RECORDS SUMMARY | 2025-02-06 10:15 | XMS_ITS | CCD ---
Author Organization [facility] Care Team Providers Care Loader Demolder Name Role Phone DONTE BADILLO Unavailable Unavailable BERNY DONOVAN Unavailable Unavailable Berny Donovan Unavailable Unavailable Unavailable DO Berny Donovan Primary Care Provider MD Donte Badillo Attending Provider DO Berny Donovan Primary Care Provider [phone] MD Donte Badillo Attending Provider DO Berny Donovan Primary Care Provider MD Donte Badillo Attending Provider YANET Mcnair Attending Provider NO FAMILY, PHYSICIAN Primary Care Provider Unava ilable MD Donte Badillo Attending Provider DO Berny Donovan Primary Care Provider [phone] DO Berny Donovan Primary Care Provider MD Donte Badillo Attending Provider DR BERNY DONOVAN Attending Unavailable JANINA, DR HINES Consulting Unavailable JANINA, DR HINES Primary Care Unavailable JANINA, DR HINES Admitting Unavailable Berny Donovan Unavailable Berny Donovan DO Primary Care Provider TREY SCHMITZ Attending Unavailable BERNY DONOVAN Referring Unavailable BERNY DONOVAN Primary Care Unavailable DO Berny Donovan Primary Care Provider [phone] MD Donte Badillo Attending Provider YANET Mcnair Attending Provider [phone] MD Donte Badillo Attending Provider YANET Mcnair Attending Provider MD Donte Badillo Attending Provider DO Berny Donovan Primary Care Provider Janina, Dr. Berny Perdomo Primary [facility] Turner Badillo II, Dr. Donte Irby Attending Unavailable Moira LÓPEZ, Dr. Donte Irby Referring Unavailable Janina, Dr. Berny Perdomo [facility] Turner Donovan, Dr. Berny Perdomo [facility]ifer Badillo II, Dr. Donte Irby Attending Unavailable Moira LÓPEZ, Dr. Donte Irby Referring Unavailable Janina, Dr. Berny Perdomo [facility] Turner Donovan, Dr. Berny Perdomo [facility] Turner Donovan, Dr. Berny Perdomo [facility] DO Berny Medellin Primary Care Provider MD Donte Badillo Attending Provider DO Berny Donovan Primary Care Provider MD Donte Badillo Attending Provider DO Berny Donovan Primary Care Provider MD Donte Badillo Attending Provider DO Berny Donovan Primary Care Provider MD Maria M Love Attending Provider Berny Donovan DO Primary Care Provider Berny Donovan DO Primary Care Provider Maria M Love MD Attending Provider BERNY DONOVAN Primary Care Physician Berny Donovan DO Primary Care Provider Maria M Love Admitting Unavailable Love, Franz Consulting Unavailable Love, Franz Attending Unavailable Love, Franz Referring Unavailable Love, Franz Consulting Unavailable Love, Franz Consulting Unavailable Love, Franz Consulting Unavailable Love, Franz Consulting Unavailable Love, Franz Consulting Unavailable Love, Franz Consulting Unavailable Love, Franz Consulting Unavailable Love, Franz Consulting Unavailable Love, Franz Consulting Unavailable Berny Donovan DO Primary Care Provider [phone] Berny Donovan DO Attending Provider [phone] MARIA M LOVE Attending Unavailable DONTE BADILLO Referring Unavailable BERNY DONOVAN E Primary Care Unavailable MARIA M LOVE Attending Unavailable BERNY DONOVAN E Primary Care Unavailable Berny Donovan DO Primary Care Provider [phone] Berny Donovan DO Attending Provider [phone] Maria M Love MD Other Provider Kwasi Rowe MD Attending Provider Maria M Love Attending Unavailable Love, Franz Admitting Unavailable Janina, Berny Primary Care Unavailable Love, Franz Attending Unavailable Love, Franz Admitting Unavailable Janina, Berny Primary Care Unavailable Love, Maria M Attending Unavailable Janina, Berny Primary Care Unavailable Love, Franz Admitting Unavailable Love, Franz Attending Unavailable Love, Franz Admitting Unavailable Janina Berny Primary Care Unavailable Allergies Allergy Classification Reported Allergen(s) Allergy Type Date of Onset Reaction(s) Facility (19 sources) Contrast media Allergy to substance (finding) Hives [facility] 250 DO Work Phone: (20 sources) Fenofibrate; Translations: [Tricor] Drug Allergy 05-17-[address] [facility] (20 sources) Niacin Drug Allergy 01-28-20 Unknown Reaction [facility] (20 sources) triclor Allergy to substance 01-28-20 Unknown Reaction [facility] (20 sources) Amoxicillin; Translations: [AMOXICILLIN] Drug Allergy 07-28-19 Unknown [facility] (20 sources) Doxycycline Drug Allergy 01-11-20 Unknown, Unknown Reaction [facility] (4 sources) Doxycycline; Translations: [DOXYCYCLINE HYCLATE] Drug Allergy 07-28-19 Unknown [facility] (4 sources) Fenofibrate; Translations: [FENOFIBRATE MICRONIZED] Drug Allergy 07-28-19 Unknown [facility] (3 sources) Penicillin Drug Allergy Unknown [facility] Other (3 sources) Pseudoephedrine Drug Allergy Unknown [facility] Other (13 sources) Fenofibrate; Translations: [FENOFIBRATE] Drug Allergy 01-11-20 Unknown Reaction [facility] (12 sources) 12 Hour Decongestant Allergy to substance 01-11-20 Unknown Reaction [facility] (3 sources) Iodinated Contrast Media; Translations: [IODINATED CONTRAST MEDIA] Drug Allergy 05-17-20 [facility] Work Phone: Medications Current Medications Medication Drug Class(es) Dates Sig (Normalized) Sig (Original) amiodarone hydrochloride 200 mg oral tablet (20 sources) Antiarrhythmic Start: 02-01-2020 End: 08-15-2025 take 1 tablet by mouth once daily in the morning aspirin 81 mg delayed release oral tablet (20 sources) Platelet Aggregation Inhibitor, Nonsteroidal Anti-inflammatory Drug Start: 03-15-2024 End: 03-15-2025 take 1 tablet by mouth once daily aspirin 81 mg EC tablet Indications: Atherosclerosis of [place] coronary artery of [place] heart without angina pectoris Take 1 tablet (81 mg) by mouth once daily. 03/15/2024 03/15/2025 Active Start: 02-01-2020 End: 03-15-2024 take 1 tablet by mouth once daily in the morning take 1 tablet by andrews th every twenty-four hours Aspirin 81 MG 1 tablet Orally Once a day for 30 day(s) Active aspirin 81 mg ca p Take by mouth. 0 Active take 1 tablet by mouth once farideh y Aspirin 325 MG Oral Tablet Delayed Release Take 1 tablet daily Quantity: 90 Refills: 3 Ordered: 17-Dec-2021 Donte Badillo MD Active Comment on above: Take by mouth. atorvastatin 20 mg oral tablet (20 sources) HMG-CoA Reductase Inhibitor Start: take 1 tablet by mouth once daily at bedtime atorvastatin (Lipitor) 20 mg tablet Indications: Mixed hyperlipidemia Take 1 tablet (20 mg) by mouth once daily at bedtime. 90 tablet 3 08/15/2024 Active Start: 02-01-2020 End: 08-15-2024 take 1 tablet by mouth at bedtime baclofen 10 mg oral tablet (12 sources) gamma-Aminobutyric Acid-ergic Agonist Start: 07-18-2022 take 1 tablet by mouth three times daily Baclofen 10 MG 1 tablet Orally three times daily for 30 days Jun, Active Comment on above: Take 10 mg by mouth three times daily. bumetanide 1 mg oral tablet (20 sources) Loop Diuretic Start: 11-07-2023 End: 04-24-2025 bumetanide (Bumex) 1 mg tablet Indications: Ischemic cardiomyopathy Take 1 tablet (1 mg) by mouth once daily as needed (1-2 tabs as needed with potassium). 90 tablet 1 04/24/2024 04/24/2025 Active Start: 02-01-2020 take 1 tablet by andrews th twice daily as needed for edema take 1 tablet by andrews th every twenty-four hours Bumetanide 1 MG 1 tablet Orally Once a day Active Comment on above: Take 1 mg by mouth o nce daily. carvedilol 25 mg oral tablet (20 sources) alpha-Adrenergic Nik, beta-Adrenergic Nik Start: 08-15-2024 take 1 tablet by mouth twice daily carvedilol (Coreg) 25 mg tablet Indications: Ischemic cardiomyopathy Take 1 tablet (25 mg) by mouth 2 times a day. 180 tablet 3 08/15/2024 Active Start: 02-01-2020 End: 08-15-2024 take 1 tablet by mouth twice daily clopidogrel 75 mg oral tablet (20 sources) P2Y12 Platelet Inhibitor Start: 08-15-2024 take 1 tablet by mouth once daily clopidogrel (Plavix) 75 mg tablet Indications: Atherosclerosis of [place] coronary artery of [place] heart without angina pectoris , Mixed hyperlipidemia Take 1 tablet (75 mg) by mouth once daily. 90 tablet 2 08/15/2024 Active Start: 02-01-2020 End: 08-15-2024 take 1 tablet by mouth once daily in the morning digoxin 0.125 mg oral tablet (20 sources) Cardiac Glycoside Start: 08-15-2024 take 1 tablet by mouth once daily digoxin (Lanoxin) 125 MCG tablet Indications: Atherosclerosis of [place] coronary artery of [place] heart without angina pectoris , Ischemic cardiomyopathy , Ventricular tachycardia (Multi) , Benign essential hypertension Take 1 tablet (125 mcg) by mouth once daily. 90 tablet 2 08/15/2024 Active Start: 02-01-2020 End: 08-15-2024 take 1 tablet by mouth once daily in the morning take 1 tablet by andrews th every twenty-four hours Digoxin 125 MCG 1 tablets Orally Once a day for 30 day(s) Active doxycycline hyclate 100 mg oral capsule (3 sources) Tetracycline-class Drug Start: 01-03-2023 take 1 capsule by mouth twice daily Doxycycline Hyclate 100 MG 1 capsule Orally twice daily for 7 days Dec, Active famotidine 20 mg oral tablet (20 sources) Histamine-2 Receptor Antagonist Start: 02-01-2020 take 1 tablet by mouth once daily in the morning take 1 tablet by mouth twice betty ly famotidine (PEPCID) 20 mg tablet Take 20 mg by mouth twice daily. 0 Active Comment on above: Take 20 mg by mouth twice daily. glipiZIDE 10 mg oral tablet (20 sources) Sulfonylurea Start: 09-06-2024 End: 01-23-2025 take 1 tablet by mouth once daily Start: 08-28-2024 End: 09-06-2024 take 1 tablet by mouth twice daily Glipizide 10 mg tablet Discontinued 10 MG PO Twice daily 60 30 August 28, 2024 2:52pm September 06, 2024 10:29am Start: 10-19-2023 End: 08-28-2024 take 1 tablet by mouth twice daily Glipizide 10 mg tablet extended release 24hr Discontinued 10 MG PO Twice daily 180 90 April 24, 2024 2:21pm August 28, 2024 2:47pm Start: 02-01-2020 End: 10-19-2023 take 1 tablet by mouth twice daily Glipizide 10 mg tablet Discontinued 10 MG PO Twice daily 180 90 October 10, 2023 3:26pm October 10, 2023 4:23pm lisinopril 5 mg oral tablet (20 sources) Angiotensin Converting Enzyme Inhibitor Start: 08-15-2024 take 1 tablet by mouth once daily lisinopril 5 mg tablet Indications: Benign essential hypertension Take 1 tablet (5 mg) by mouth once daily. 90 tablet 1 08/15/2024 Active Start: 04-24-2024 End: 08-15-2024 take 1 tablet by mouth once daily lisinopril 5 mg tablet Indications: Benign essential hypertension Take 1 tablet (5 mg) by mouth once daily. 90 tablet 1 04/24/2024 08/15/2024 Discontinued (Reorder) Start: 06-12-2023 take 1 tablet by andrews th once daily lisinopril 5 mg tablet Indications: Benign essential hypertension Take 1 tablet (5 mg) by mouth once daily. 90 tablet 3 06/12/2023 Active Start: 03-16-2021 take 1 tablet by andrews th once daily Lisinopril 5 MG Oral Tablet Take 1 tablet daily Quantity: 90 Refills: 3 Ordered: 08-Sep-2022 Donte Badillo MD Start : 16-Mar-2021 Active Start: 02-01-2020 take 1 tablet by andrews th once daily in the morning nitroglycerin 0.4 mg subling ual tablet (20 sources) Nitrate Vasodilator Start: 02-01-2020 Nitroglycerin 0. 4 MG 1 tablet under the tongue Sublingual as directed for 30 day(s) Not-Taking Comment on above: Dissolve 0.4 mg unde r the tongue every 5 minutes as needed for chest pain. SITagliptin 50 mg oral tablet (20 sources) Dipeptidyl Peptidase 4 Inhibitor Start: 01-23-2025 take 1 tablet by mouth once daily Start: 10-10-2024 End: 01-23-2025 take 1 tablet by mouth once daily Sitagliptin Phosphate (Januvia) 50 mg tablet Discontinued 0 .ROUTE .COMPLEX October 10, 2024 4:15pm January 23, 2025 12:24pm TAKE ONE TABLET BY MOUTH DAILY Start: 05-31-2024 End: 10-10-2024 take 1 tablet by mouth once daily Sitagliptin Phosphate (Januvia) 50 mg tablet Discontinued 50 MG PO Daily 90 May 31, 2024 4:54pm October 10, 2024 4:15pm Start: 01-27-2021 End: 04-24-2024 take 1 tablet by mouth once daily Sitagliptin Phosphate (Januvia) 50 mg tablet Discontinued 50 MG PO Daily November 01, 2023 12:00am April 24, 2024 2:44pm Completed/Discontinued Medications Medication Drug Class(es) Dates Sig (Normalized) Sig (Original) ALPRAZolam 1 mg oral tablet (20 sources) Benzodiazepine Start: 02-01-2020 End: 12-17-2024 take 1 tablet by mouth twice daily as needed for anxiety Alprazolam 1 mg tablet Discontinued 1 MG PO Twice daily as needed for anxiety 180 90 September 24, 2024 12:41pm December 17, 2024 12:42pm take 1 tablet by andrews th every twelve hours as needed ALPRAZolam 1 MG Oral Tablet TAKE 1 TABLE T EVERY 12 HOURS NEEDED. Quantity: 180 Refills: 0 Ordered: 17-Dec-2021 Donte Badillo MD Active Comment on above: Take 1 mg by mouth t wice daily as needed. For Anxiety azithromycin 250 mg oral tablet (3 sources) Macrolide Antimicrobial Start: 10-08-19 Azithromycin 250 MG as directed Orally daily for 5 days September, Not-Taking cefdinir 300 mg oral capsule (3 sources) Cephalosporin Antibacterial Start: 09-18-19 End: 10-02-19 take 1 capsule by mouth every twelve hours Cefdinir 300 mg capsule Discontinued 300 MG PO Every 12 hours 02 23September 17, 2024 12:00am October 01, 2024 11:36am cefuroxime 250 mg oral tablet (15 sources) Cephalosporin Antibacterial Start: 10-02-19 End: 01-24-20 take 1 tablet by mouth twice daily Cefuroxime Axetil 250 mg tablet Discontinued 250 MG PO Twice daily 02 23November 01, 2024 2:41pm January 23, 2025 11:08am take w/ food Start: 03-21-2024 End: 04-24-2024 take 1 tablet by mouth twice daily Cefuroxime Axetil 500 mg tablet Discontinued 500 MG PO Twice daily 02 23March 21, 2024 12:00am April 24, 2024 2:19pm Start: 10-07-2022 take 1 tablet by andrews th every twelve hours Cefuroxime Axetil 500 MG 1 tablet Orally every 12 hrs for 5 days September, Not-Taking clindamycin 300 mg oral capsule (20 sources) Lincosamide Antibacterial Start: 02-09-2021 End: 03-21-2024 take 2 capsules by mouth three times daily Clindamycin Hcl 300 mg capsule Discontinued 600 MG PO Three times daily 04 22February 09, 2021 12:00am March 21, 2024 12:52pm Start: 02-09-2021 End: 03-21-2024 take 600 mg by mouth three times daily Clindamycin Hcl Discontinued 600 MG PO Three times daily 04 22February 09, 2021 12:00am March 21, 2024 12:52pm dicyclomine hydrochloride 20 mg oral tablet (3 sources) Anticholinergic Start: 09-24-2024 End: 10-01-2024 take 1 tablet by mouth once daily Dicyclomine 20 mg tablet Discontinued 20 MG PO daily 5 5 September 24, 2024 12:00am October 01, 2024 11:36am hydrocortisone 10 mg/ml / neomycin 3.5 mg/ml / polymyxin b [id number] unt/ml otic suspension (6 sources) Aminoglycoside Antibacterial, Polymyxin-class Antibacterial, Corticosteroid Start: 06-27-2024 End: 09-04-2024 Neomycin-Polymyxin -Hc 3.5-10,000-1 mg/mL-unit/mL-% drops,suspension Discontinued 4 DROPS OTIC Every 8 hours 10 7 June 27, 2024 1:00am September 04, 2024 9:12am linagliptin 5 mg oral tablet (20 sources) Dipeptidyl Peptidase 4 Inhibitor Start: 02-01-2020 End: 04-24-2024 take 1 tablet by mouth once daily at bedtime Linagliptin (Tradjenta) 5 mg tablet Discontinued 5 MG PO Daily at bedtime 90 90 October 10, 2023 3:27pm October 10, 2023 4:23pm Comment on above: Take 5 mg by mouth o nce daily. metFORMIN hydrochloride 850 mg oral tablet (10 sources) Biguanide take 1 tablet by mouth every twelve hours metFORMIN HCl 850 MG 1 tablet with meals Orally Twice a day for 30 day(s) Not-Taking methIMAzole 10 mg oral tablet (10 sources) Thyroid Hormone Synthesis Inhibitor take 1 tablet by mouth every twenty-four hours methIMAzole 10 MG 1 tablet Orally Once a day for 30 day(s) Not-Taking pioglitazone 30 mg oral tablet (10 sources) Peroxisome Proliferator Receptor alpha Agonist, Peroxisome Proliferator Receptor gamma Agonist, Thiazolidinedione take 1 tablet by mouth every twenty-four hours Actos 30 MG 1 tablet Orally Once a day for 30 day(s) Not-Taking Potassium (2 sources) POTASSIUM ORAL Take by mouth. 0 Active Comment on above: Take by mouth. potassium chloride 10 meq extended release oral tablet (20 sources) Start: 11-07-2023 End: 08-15-2025 take 2 tablets by mouth every other day potassium chloride CR 10 mEq ER tablet Indications: Ischemic cardiomyopathy Take 2 tablets (20 mEq) by mouth every other day. 90 tablet 2 08/15/2024 08/15/2025 Active Start: 05-27-2022 KLOR-CON M10 1 0 mEq tablet Start: 04-19-2021 take 2 tablets by mo [facility] every other day Potassium Chloride ER 10 MEQ Oral Tablet Extended Release Take 2 tablets every other day with Bumetanide Quantity: 90 Refills: 3 Ordered: 08-Sep-2022 Donte Badillo MD Start : 19-Apr-2021 Active Start: 02-01-2020 End: 07-09-2024 Potassium Chloride (Klor-Con 10) 10 mEq tablet extended release Discontinued 10 MEQ PO Daily July 03, 2024 1:00am July 09, 2024 11:03am Start: 02-01-2020 take 1 mEq by mouth once daily in the morning Potassium Chloride Active 1 MEQ PO Every morning February 01, 2020 12:00am [facility] Klor-Con 10 10 MEQ 1 tablet with food Orally Twice a day Active pravastatin sodium 40 mg oral tablet (10 sources) HMG-CoA Reductase Inhibitor take 1 tablet by mouth every twenty-four hours Pravastatin Sodium 40 MG 1 tablet Orally Once a day for 30 day(s) Not-Taking Problems Active Problems Problem Classification Problem Date Documented Da te Episodic/Chronic Acute and unspecified renal failure (7 sources) Chronic renal failure; Translations: [CKD (Chronic Kidney Disease) Unspecified] Chronic Acute and unspecified renal failure (7 sources) Prerenal renal failure; Translations: [Acute Renal Failure] Episodic Acute bronchitis (2 sources) Acute infective bronchitis; Translations: [Acute bronchitis due to other specified organisms] 10-01-2024 Episodic Anxiety disorders (20 sources) Anxiety; Translations: [Anxiety state, unspecified] Onset: 05-17-2023 Chronic Cardiac dysrhythmias (20 sources) Ventricular tachycardia; Translations: [Paroxysmal ventricular tachycardia] Onset: 11-16-2017 02-01-2020 Chronic Chronic kidney disease (10 sources) Chronic kidney disease stage 3A ; Translations: [Stage 3a chronic kidney disease] Chronic Conduction disorders (20 sources) Finding of cardiovascular device; Translations: [Encounter for adjustment and management of automatic implantable cardiac defibrillator] Onset: 03-15-2024 02-01-2020 Chronic Congestive heart failure; nonhypertensive (20 sources) Congestive heart failure; Translations: [CHF] 10-08-2023 Chronic Coronary atherosclerosis and other heart disease (20 sources) Ischemic myocardial dysfunction; Translations: [Other specified forms of chronic ischemic heart disease] Onset: 05-17-2023 10-08-2023 Chronic Comment on above: Echo: LVEF 55%, LAE, normal RV size/function - 07/2024 Deficiency and other anemia (20 sources) Pancytopenia; Translations: [Other pancytopenia] Chronic Deficiency and other anemia (1 source) Anemia of chronic renal failure; Translations: [Anemia of chronic renal failure, stage 3a (HCC)] Chronic Deficiency and other anemia (8 sources) Anemia; Translations: [Anemia, unspecified] 03-18-2024 Episodic Diabetes mellitus with complications (20 sources) Disorder of kidney due to diabetes mellitus; Translations: [DM II with renal manifestations, not stated as uncontrolled] Chronic Diabetes mellitus without complication (20 sources) Diabetes mellitus; Translations: [Diabetes mellitus without mention of complication, type II or unspecified type, not stated as uncontrolled] Onset: 05-17-2023 03-15-2024 Chronic Disorders of lipid metabolism (20 sources) Hyperlipidemia; Translations: [Other and unspecified hyperlipidemia] Onset: 05-17-2023 10-08-2023 Chronic Essential hypertension (20 sources) Benign essential hypertension; Translations: [Benign essential hypertension] Onset: 05-17-2023 10-08-2023 Chronic Other aftercare (15 sources) Drug therapy finding; Translations: [Long-term (current) use of other medications] Episodic Other aftercare (2 sources) Taking high risk medication; Translations: [Other custodial (current) drug therapy] Onset: 08-15-2024 08-15-2024 Episodic Other and ill-defined heart disease (1 source) Left ventricular systolic dysfunction; Translations: [Heart disease, unspecified] 03-15-2024 Chronic Other ear and sense organ disorders (2 sources) Unspecified otitis externa, right ear; Translations: [Infective otitis externa, unspecified] 06-27-2024 Chronic Other ear and sense organ disorders (2 sources) Impacted cerumen, right ear; Translations: [Impacted cerumen] 06-27-2024 Episodic Other lower respiratory disease (1 source) Hiccough Episodic Other nutritional; endocrine; and metabolic disorders (12 sources) Body mass index 40+ - severely obese; Translations: [Morbid obesity] Onset: 06-12-2023 06-12-2023 Chronic Other nutritional; endocrine; and metabolic disorders (17 sources) Obesity; Translations: [Obesity, unspecified] Chronic Other nutritional; endocrine; and metabolic disorders (4 sources) Body mass index 30+ - obesity; Translations: [Body mass index (BMI) 39.0-39.9, adult] Onset: 03-15-2024 03-15-2024 Chronic Other nutritional; endocrine; and metabolic disorders (2 sources) Obese class II; Translations: [Class 2 obesity] 03-15-2024 Chronic Other nutritional; endocrine; and metabolic disorders (2 sources) Body mass index (BMI) 39.0-39.9, adult; Translations: [Body mass index (BMI) 39.0-39.9, adult] Onset: 03-15-2024 Chronic Other screening for suspected conditions (not mental disorders or infectious disease) (20 sources) Encounter for screening for malignant neoplasm of prostate; Translations: [Disorder of cardiovascular system] Onset: 06-21-2022 10-10-2023 Episodic Other upper respiratory infections (12 sources) Acute sinusitis; Translations: [Acute sinusitis, unspecified] 03-21-2024 Episodic Devi-; endo-; and myocarditis; cardiomyopathy (except that caused by tuberculosis or sexually transmitted disease) (10 sources) Dilated cardiomyopathy; Translations: [Dilated cardiomyopathy] Chronic Residual codes; unclassified (10 sources) Obstructive sleep apnea syndrome; Translations: [Obstructive sleep apnea (adult) (pediatric)] Chronic Skin and subcutaneous tissue infections (2 sources) Cutaneous abscess of left foot Episodic Thyroid disorders (20 sources) Hyperthyroidism; Translations: [Thyrotoxicosis without mention of goiter or other cause, and without mention of thyrotoxic crisis or storm] Onset: 05-17-2023 05-17-2023 Chronic Unclassified (2 sources) Ventricular tachycardia / I47.2(ICD-9) Onset: 11-16-2017 Unclassified (2 sources) Other custodial (current) drug therapy / Z79.899(ICD-9) Onset: 11-16-2017 Unclassified (1 source) Ventricular tachycardia, unspecified (Multi); Translations: [Ventricular tachycardia, unspecified (Multi)] Onset: 05-17-2023 Past or Other Problems Problem Classification Problem Date Documented Da te Episodic/Chronic Other aftercare (2 sources) Other rn long term care (current) drug therapy; Translations: [Other custodial (current) drug therapy] Onset: 08-15-2024 Episodic Screening and history of mental health and substance abuse codes (20 sources) Ex-smoker; Translations: [Personal history of tobacco use] Onset: 03-15-2024 03-15-2024 Episodic Comment on above: quit 2002; Unclassified (1 source) Other rn long term care (current) drug therapy; Translations: [Other custodial (current) drug therapy] Onset: 11-16-2017 Unclassified (1 source) Ventricular tachycardia, unspecified (Multi); Translations: [Ventricular tachycardia, unspecified (Multi)] Onset: 03-15-2024 Results Test Name Value Interpretation Reference Range Facility Laboratory - Chemistry and C hemistry - challengeon 11-01-2024 Bilirubin Ql (U) Negative [facility] Glucose (U) [Mass/Vol] Negative [facility] Ketones Ql (U) Negative [facility] pH (U) 5.0 [pH] [facility] Specific gravity (U) [Rel density] 1.005 [facility] Urobilinogen (U) [Mass/Vol] 0.2 mg/dL [facility] Laboratory - Specimen inform ationon 11-01-2024 Appearance (U) clear [facility] Color (U) lightyellow [facility] Laboratory - Urinalysison Leukocyte esterase Test strip Ql (U) Negative [facility] Nitrite Ql (U) Negative [facility] Protein Ql (U) + [facility] No Panel Informationon 11-01 Urine Occult Blood +++ [facility] Influenza virus B Ag [Presen ce] in Upper respiratory specimen by Rapid immunoassayon 09-17-2024 FLUBV Ag IA.rapid Ql (Nph) Influenza virus B Ag [Presence] in Upper respiratory specimen by Rapid immunoassay [facility] No Panel Informationon 09-17 Influenza Type A (Rapid) Negative [facility] POC SARS CoV-2 Antigen Negative [facility] Basophils Auto (Bld) [#/Vol] on 09-04-2024 Basophils (Bld) [#/Vol] Automated basoph il count 0.0-0.1 [facility] Basophils/100 WBC Auto (Bld) on 09-04-2024 Basophils/100 WBC (Bld) Automated basophil % 0. 2-2.0 [facility] Cholesterol in LDL Calc [Mas s/Vol]on 09-04-2024 Cholesterol in LDL [Mass/Vol] Cholesterol in LDL [Mass/volume] in Serum or Plasma by calculation [facility] Comment on above: <100 mg/dl [id number] 0-129 mg/dl NEAR OR ABOVE [id number] mg/dl BORDERLINE [id number] mg/dl HIGH>190 mg/dl VERY HIGH Cholesterol in VLDL Calc [Ma ss/Vol]on 09-04-2024 Cholesterol in VLDL [Mass/Vol] Cholesterol in VLDL [Mass/volume] in Serum or Plasma by calculation [facility] Eosinophils/100 WBC Auto (Bl d)on 09-04-2024 Eosinophils/100 WBC (Bld) Automated eosinophil % Low 0.9-7.0 [facility] Erythrocyte distribution wid th Auto (RBC) [Ratio]on 09-04-2024 Erythrocyte distribution width (RBC) [Ratio] Erythrocyte distribution width [Ratio] by Automated count 11.0-15.0 [facility] Estimated glomerular filtrat ion rate (GFR) non- Americanon 09-04-2024 GFR/1.73 sq M.predicted among non-blacks MDRD (S/P/Bld) [Vol rate/Area] Estimated glomerular filtration rate (GFR) non- Low >=60 mL/min/1.73 m 2 [facility] Globulin Calc (S) [Mass/Vol] on 09-04-2024 Globulin (S) [Mass/Vol] Serum globulin measurement by calculation (mass/volume) [facility] Hematocrit Auto (Bld) [Volum e fraction]on 09-04-2024 Hematocrit (Bld) [Volume fraction] Hematocrit [Volume Fraction] of Blood by Automated count Low 42.0-54.0 [facility] Hemoglobin [Mass/volume] in Bloodon 09-04-2024 Hemoglobin (Bld) [Mass/Vol] Hemoglobin [Mass/volume] in Blood Low 14.0-18.0 [facility] Iron binding capacity [Mass/ volume] in Serum or Plasmaon 09-04-2024 Iron binding capacity [Mass/Vol] Iron binding capacity [Mass/volume] in Serum or Plasma 250.0-450.0 [facility] Iron saturation [Mass Fracti on] in Serum or Plasmaon 09-04-2024 Iron saturation [Mass fraction] Iron saturation [Mass Fraction] in Serum or Plasma [facility] Laboratory - Chemistry and C hemistry - challengeon 09-04-2024 Albumin [Mass/Vol] 3.4 g/dL 3.4-5.0 [facility] ALP [Catalytic activity/Vol] 73 U/L 46-116 [facility] ALT [Catalytic activity/Vol] 16 U/L 16-63 [facility] AST [Catalytic activity/Vol] 15 U/L 15-37 [facility] Bilirubin [Mass/Vol] 0.6 mg/dL 0.2-1.0 [facility] Calcium [Mass/Vol] 8.7 mg/dL 8.5-10.1 [facility] Chloride [Moles/Vol] 105 mmol/L 98-107 [facility] Cholesterol [Mass/Vol] 109 mg/dL <=200 [facility] Cholesterol in HDL [Mass/Vol] 39 mg/dL Low 40-60 [facility] Comment on above: > or =60 mg/dl - LOW CARDIOVASCULAR RISK<40 mg/dl - HIGH CARDIOVASCULAR RISK CO2 [Moles/Vol] 32.8 mmol/L High 21.0-32.0 [facility] Cobalamin (Vitamin B12) [Mass/Vol] 260 pg/mL 232-1245 [facility] Comment on above: Performed at: - [facility] [address] [id number] Director: Parish Andres PhD, Phone: [phone] Creatinine [Mass/Vol] 1.41 mg/dL High 0.70-1.30 [facility] Ferritin [Mass/Vol] 160.0 ng/mL 26.0-388.0 [facility] GFR/1.73 sq M.predicted MDRD (S/P/Bld) [Vol rate/Area] mL/min/{1.73_m2} >=60 mL/min/1.73 m 2 [facility] Glucose [Mass/Vol] 102 mg/dL 74-106 [facility] Iron [Mass/Vol] 72.0 ug/dL 65.0-175.0 [facility] LDH [Catalytic activity/Vol] 217 U/L 85-227 [facility] Potassium [Moles/Vol] 4.4 mmol/L 3.5-5.1 [facility] Protein [Mass/Vol] 7.6 g/dL 6.4-8.2 [facility] Sodium [Moles/Vol] 141 mmol/L 136-145 [facility] Triglyceride [Mass/Vol] 76 mg/dL <=150 F [facility] TSH Qn 3.814 m[IU]/L High 0.358-3.740 [facility] Urea nitrogen [Mass/Vol] 20.0 mg/dL High 7.0-18.0 [facility] Urea nitrogen/Creatinine [Mass ratio] 14.2 mg/mg [facility] Laboratory - Hematology and Cell countson 09-04-2024 Immature granulocytes/100 WBC (Bld) 2.1 % High 0.0-0.5 [facility] Leukocytes [#/volume] correc diana for nucleated erythrocytes in Blood by Automated counon 09-04-2024 WBC corrected for nucl RBC Auto (Bld) [#/Vol] Leukocytes [#/volume] corrected for nucleated erythrocytes in Blood by Automated coun Low 4.0-11.0 [facility] Lymphocytes Auto (Bld) [#/Vo l]on 09-04-2024 Lymphocytes (Bld) [#/Vol] Lymphocytes [#/volume] in Blood by Automated count Low 1.2-3.8 [facility] Lymphocytes/100 WBC Auto (Bl d)on 09-04-2024 Lymphocytes/100 WBC (Bld) Lymphocytes/100 leukocytes in Blood by Automated count 20.5-60.0 [facility] MCH Auto (RBC) [Entitic mass ]on 09-04-2024 MCH (RBC) [Entitic mass] MCH [Entitic mass] by Automated count High 25.9-34.0 [facility] MCHC Auto (RBC) [Mass/Vol]on 09-04-2024 MCHC (RBC) [Mass/Vol] MCHC [Mass/volume] by Automated count 29.9-35.2 [facility] MCV Auto (RBC) [Entitic vol] on 09-04-2024 MCV (RBC) [Entitic vol] MCV [Entitic vol ume] by Automated count High 80.0-94.0 [facility] Monocytes Auto (Bld) [#/Vol] on 09-04-2024 Monocytes (Bld) [#/Vol] Automated blood monocyte count 0.3-0.8 [facility] Monocytes/100 WBC Auto (Bld) on 09-04-2024 Monocytes/100 WBC (Bld) Automated monocyte % High 1. 7-12.0 [facility] Neutrophils Auto (Bld) [#/Vo l]on 09-04-2024 Neutrophils (Bld) [#/Vol] Neutrophils [#/volume] in Blood by Automated count Low 1.4-6.5 [facility] Neutrophils/100 WBC Auto (Bl d)on 09-04-2024 Neutrophils/100 WBC (Bld) Automated neutrophil % 43.0-75.0 [facility] No Panel Informationon 09-04 Eosinophils # (Auto) 0.0 10 3/uL 0.0-0.7 [facility] Folate 9.40 ng/mL 8.60-58.90 [facility] Immature Granulocyte # (Auto) 0.05 10 3/uL High 0.00-0.03 [facility] Platelet mean volume Auto (B ld) [Entitic vol]on 09-04-2024 Platelet mean volume (Bld) [Entitic vol] Platelet mean volume [Entitic volume] in Blood by Automated count 9.5-13.5 [facility] Platelets Auto (Bld) [#/Vol] on 09-04-2024 Platelets (Bld) [#/Vol] Platelets [#/vol ume] in Blood by Automated count Low 150-450 [facility] RBC Auto (Bld) [#/Vol]on RBC (Bld) [#/Vol] Erythrocytes [#/volu me] in Blood by Automated count Low 4.70-6.10 [facility] Comment on above: 2+ ANSIOCYTOSIS1+ MA CROCYTOSIS1+ OVALOCYTES Serum or plasma albumin/glob ulin mass ratioon 09-04-2024 Albumin/Globulin [Mass ratio] Serum or plasma albumin/globulin mass ratio [facility] Serum or plasma anion gap de terminationon 09-04-2024 Anion gap [Moles/Vol] Serum or plasma an ion gap determination [facility] Serum or plasma total choles terol/high density lipoprotein (HDL) cholesterol mass jose martin 09-04-2024 Cholesterol.total/Laura sterol in HDL [Mass ratio] Serum or plasma total cholesterol/high density lipoprotein (HDL) cholesterol mass rat [facility] Comment on above: 3.3 - 4.4 LOW RISK4. 4 - 7.1 AVERAGE RISK7.1 - 11.0 MODERATE RISK>11.0 HIGH RISK ECG 12 Leadon 08-15-2024 ECG revealed normal sinus rhythm, right bundle branch block, lateral infarction of undetermined age, inferior infarction of undetermined age, abnormal ECG [facility] Work Phone: X-ray reportOrdered By: Mikel Wilburn on 08-05-2024 [place] [address] XRay Report Signed Patient: Darell Jiménez MR#: [id number] : 1960 Acct:[id number] Age/Sex: 64 / M ADM Date: 5 Loc: RT Room: Type: [facility] CLI Attending Dr: Maria M Love MD Copies to: Maria M Love MD, FAC~ Ordering Provider: Maria M Love MD, [facility] Date of Service: 08/05/24 XR/XR chest 2V*: I47.20,I25.5 Chest 2 views CLINICAL HISTORY: Amiodarone use. COMPARISON: Chest 07/31/2023 FINDINGS: Defibrillator device is in place. Heart is normal in size. Lungs are clear. No free air. XR/XR chest 2V* IMPRESSION: NO ACUTE CARDIOPULMONARY ABNORMALITY. Impression dictated by: Jj Wilburn Jr., D.O.08/05/2024 4:50 PM Dictation Location: RADIO--22 Transcribed By: SHARRON 08/05/241649 Dictated By: Jj Wilburn Jr, DO 08/05/241648 Signed By: 08/05/241649 [facility] XR chest 2V*on 08-05-2024 XR chest 2V* [facility] [address] XRay Report Signed Patient: Darell Jiménez MR#: [id number] : 1960 Acct:[id number] Age/Sex: 64 / M ADM Date: 08/05/24 Loc: RT Room: Type: [facility] Attending Dr: Maria M Love MD Copies to: Maria M Love MD, [facility] Ordering Provider: Maria M Love MD, [facility] Date of Service: 08/05/24 XR/XR chest 2V*: I47.20,I25.5 Chest 2 views CLINICAL HISTORY: Amiodarone use. COMPARISON: Chest 07/31/2023 FINDINGS: Defibrillator device is in place. Heart is normal in size. Lungs are clear. No free air. XR/XR chest 2V* IMPRESSION: NO ACUTE CARDIOPULMONARY ABNORMALITY. Impression dictated by: Jj Wilburn Jr., D.O.08/05/2024 4:50 PM Dictation Location: RADIO--22 Transcribed By: SHARRON 08/05/241649 Dictated By: Jj Wilburn Jr, DO 08/05/241648 Signed By: 08/05/241649 Normal [facility] Basophils Auto (Bld) [#/Vol] on 03-16-2024 Basophils (Bld) [#/Vol] 0.0 10 3/uL 0.0-0.1 [facility] Basophils (Bld) [#/Vol] Automated basoph il count 0.0-0.1 [facility] Basophils/100 WBC Auto (Bld) on 03-16-2024 Basophils/100 WBC (Bld) 0.7 % 0.2-2.0 F [facility] Basophils/100 WBC (Bld) Automated basophil % 0. 2-2.0 [facility] Cholesterol in LDL Calc [Mas s/Vol]on 03-16-2024 Cholesterol in LDL [Mass/Vol] 39.0 mg/dL [facility] Comment on above: <100 mg/dl RIZMIZU37 0-129 mg/dl NEAR OR ABOVE [id number] mg/dl BORDERLINE [id number] mg/dl HIGH>190 mg/dl VERY HIGH Cholesterol in LDL [Mass/Vol] Cholesterol in LDL [Mass/volume] in Serum or Plasma by calculation [facility] Comment on above: <100 mg/dl [id number] 0-129 mg/dl NEAR OR ABOVE OHOEQFH071-814 mg/dl BORDERLINE [id number] mg/dl HIGH>190 mg/dl VERY HIGH Cholesterol in VLDL Calc [Ma ss/Vol]on 03-16-2024 Cholesterol in VLDL [Mass/Vol] 18.4 mg/dL [facility] Cholesterol in VLDL [Mass/Vol] Cholesterol in VLDL [Mass/volume] in Serum or Plasma by calculation [facility] Eosinophils/100 WBC Auto (Bl d)on 03-16-2024 Eosinophils/100 WBC (Bld) 1.8 % 0.9-7.0 [facility] Eosinophils/100 WBC (Bld) Automated eosinophil % 0.9-7.0 [facility] Erythrocyte distribution wid th Auto (RBC) [Ratio]on 03-16-2024 Erythrocyte distribution width (RBC) [Ratio] 13.0 % 11.0-15.0 [facility] Erythrocyte distribution width (RBC) [Ratio] Erythrocyte distribution width [Ratio] by Automated count 11.0-15.0 [facility] Glucose mean value [Mass/vol ume] in Blood Estimated from glycated hemoglobinon 03-16-2024 Average glucose Estimated from glycated hemoglobin (Bld) [Mass/Vol] 177 mg/dL [facility] Average glucose Estimated from glycated hemoglobin (Bld) [Mass/Vol] Glucose mean value [Mass/volume] in Blood Estimated from glycated hemoglobin [facility] Hematocrit Auto (Bld) [Volum e fraction]on 10-26-2024 Hematocrit (Bld) [Volume fraction] 32.4 % Low 42.0-54.0 [facility] Hematocrit (Bld) [Volume fraction] Hematocrit [Volume Fraction] of Blood by Automated count Low 42.0-54.0 [facility] Hemoglobin [Mass/volume] in Bloodon 03-16-2024 Hemoglobin (Bld) [Mass/Vol] 10.7 g/dL Low 14.0-18.0 [facility] Hemoglobin (Bld) [Mass/Vol] Hemoglobin [Mass/volume] in Blood Low 14.0-18.0 [facility] Laboratory - Chemistry and C hemistry - challengeon 03-16-2024 Cholesterol [Mass/Vol] 85 mg/dL <=200 [facility] Cholesterol in HDL [Mass/Vol] 28 mg/dL Low 40-60 [facility] Comment on above: > or =60 mg/dl - LOW CARDIOVASCULAR RISK<40 mg/dl - HIGH CARDIOVASCULAR RISK Triglyceride [Mass/Vol] 92 mg/dL <=150 F [facility] Laboratory - Hematology and Cell countson 03-16-2024 HbA1c (Bld) [Mass fraction] 7.8 % High 4.5-6.2 [facility] Comment on above: ADA RECOMMENDED LIMI T 4.0 - 6.0ADA THERAPEUTIC TARGET < 7.0ACTION SUGGESTED> 7.0 Immature granulocytes/100 WBC (Bld) 2.8 % High 0.0-0.5 [facility] Leukocytes [#/volume] correc diana for nucleated erythrocytes in Blood by Automated counon 03-16-2024 WBC corrected for nucl RBC Auto (Bld) [#/Vol] 2.8 10 3/uL Low 4.0-11.0 [facility] WBC corrected for nucl RBC Auto (Bld) [#/Vol] Leukocytes [#/volume] corrected for nucleated erythrocytes in Blood by Automated coun Low 4.0-11.0 [facility] Lymphocytes Auto (Bld) [#/Vo l]on 03-16-2024 Lymphocytes (Bld) [#/Vol] 0.9 10 3/uL Low 1.2-3.8 [facility] Lymphocytes (Bld) [#/Vol] Lymphocytes [#/volume] in Blood by Automated count Low 1.2-3.8 [facility] Lymphocytes/100 WBC Auto (Bl d)on 03-16-2024 Lymphocytes/100 WBC (Bld) 31.6 % 20.5-60.0 [facility] Lymphocytes/100 WBC (Bld) Lymphocytes/100 leukocytes in Blood by Automated count 20.5-60.0 [facility] MCH Auto (RBC) [Entitic mass ]on 03-16-2024 MCH (RBC) [Entitic mass] 33.9 pg 25.9-34.0 [facility] MCH (RBC) [Entitic mass] MCH [Entitic mass] by Automated count 25.9-34.0 [facility] MCHC Auto (RBC) [Mass/Vol]on 03-16-2024 MCHC (RBC) [Mass/Vol] 33.0 g/dL 29.9-35.2 [facility] MCHC (RBC) [Mass/Vol] MCHC [Mass/volume] by Automated count 29.9-35.2 [facility] MCV Auto (RBC) [Entitic vol] on 03-16-2024 MCV (RBC) [Entitic vol] 102.5 fL High 80.0-94.0 [facility] MCV (RBC) [Entitic vol] MCV [Entitic vol ume] by Automated count High 80.0-94.0 [facility] Microalbumin [Mass/volume] i n Urineon 03-16-2024 Albumin DL <= 20 mg/L (U) [Mass/Vol] mg/dL <=30.0 [facility] Albumin DL <= 20 mg/L (U) [Mass/Vol] Microalbumin [Mass/volume] in Urine <=30.0 [facility] Monocytes Auto (Bld) [#/Vol] on 03-16-2024 Monocytes (Bld) [#/Vol] 0.5 10 3/uL 0.3-0.8 [facility] Monocytes (Bld) [#/Vol] Automated blood monocyte count 0.3-0.8 [facility] Monocytes/100 WBC Auto (Bld) on 03-16-2024 Monocytes/100 WBC (Bld) 19.1 % High 1.7-12.0 [facility] Monocytes/100 WBC (Bld) Automated monocyte % High 1. 7-12.0 [facility] Neutrophils Auto (Bld) [#/Vo l]on 03-16-2024 Neutrophils (Bld) [#/Vol] 1.2 10 3/uL Low 1.4-6.5 [facility] Neutrophils (Bld) [#/Vol] Neutrophils [#/volume] in Blood by Automated count Low 1.4-6.5 [facility] Neutrophils/100 WBC Auto (Bl d)on 03-16-2024 Neutrophils/100 WBC (Bld) 44.0 % 43.0-75.0 [facility] Neutrophils/100 WBC (Bld) Automated neutrophil % 43.0-75.0 [facility] No Panel Informationon 03-16 Eosinophils # (Auto) 0.1 10 3/uL 0.0-0.7 [facility] Immature Granulocyte # (Auto) 0.08 10 3/uL High 0.00-0.03 [facility] Prostate Specific Antigen Screen 0.63 ng/mL <=4.00 [facility] Platelet mean volume Auto (B ld) [Entitic vol]on 03-16-2024 Platelet mean volume (Bld) [Entitic vol] 11.4 fL 9.5-13.5 [facility] Platelet mean volume (Bld) [Entitic vol] Platelet mean volume [Entitic volume] in Blood by Automated count 9.5-13.5 [facility] Platelets Auto (Bld) [#/Vol] on 03-16-2024 Platelets (Bld) [#/Vol] 145 10 3/uL Low 150-450 [facility] Platelets (Bld) [#/Vol] Platelets [#/vol ume] in Blood by Automated count Low 150-450 [facility] RBC Auto (Bld) [#/Vol]on RBC (Bld) [#/Vol] 3.16 10 6/uL Low 4.70-6.10 [facility] RBC (Bld) [#/Vol] Erythrocytes [#/volu me] in Blood by Automated count Low 4.70-6.10 [facility] Serum or plasma total choles terol/high density lipoprotein (HDL) cholesterol mass josem artin 03-16-2024 Cholesterol.total/Laura sterol in HDL [Mass ratio] 3.0 {ratio} [facility] Comment on above: 3.3 - 4.4 LOW RISK4. 4 - 7.1 AVERAGE RISK7.1 - 11.0 MODERATE RISK>11.0 HIGH RISK Cholesterol.total/Laura sterol in HDL [Mass ratio] Serum or plasma total cholesterol/high density lipoprotein (HDL) cholesterol mass rat [facility] Comment on above: 3.3 - 4.4 LOW RISK4. 4 - 7.1 AVERAGE RISK7.1 - 11.0 MODERATE RISK>11.0 HIGH RISK ECG 12 Leadon 03-15-2024 ECG revealed normal sinus rhythm with sinus bradycardia, right bundle branch block, inferior myocardial infarction of undetermined age, anterolateral myocardial infarction of undetermined age. Abnormal ECG [facility] Work Phone: Aspartate aminotransferase [ Enzymatic activity/volume] in Serum or PlasmaOrdered By: Donte Badillo on 07-31-2023 AST [Catalytic activity/Vol] 12 U/L 13-39 [facility] Calcium [Mass/volume] in Ser um or PlasmaOrdered By: Donte Badillo on 07-31-2023 Calcium [Mass/Vol] 9.0 mg/dL 8.6-10.3 [facility] Carbon dioxide, total [Moles /volume] in Serum or PlasmaOrdered By: Donte Badillo on 07-31-2023 CO2 [Moles/Vol] 30.0 mmol/L 21.0-31.0 [facility] Chloride [Moles/volume] in S grover or PlasmaOrdered By: Donte Badillo on 07-31-2023 Chloride [Moles/Vol] 103 mmol/L 98-107 [facility] Creatinine [Mass/volume] in Serum or PlasmaOrdered By: Donte Badillo on 07-31-2023 Creatinine [Mass/Vol] 1.27 mg/dL 0.70-1.30 [facility] Glucose [Mass/volume] in Ser um or PlasmaOrdered By: Donte Badillo on 07-31-2023 Glucose [Mass/Vol] 308 mg/dL 70-100 [facility] Comment on above: ADA recommended refe rence rangeRandom Glucose Reference Range is dependent on time and content of last meal. Glucose of more than 200 mg/dL in a nonstressed, ambulatory subject supports the diagnosis of Diabetes Mellitus. No Panel InformationOrdered By: Donte Badillo on 07-31-2023 Estimated GFR (CKD-EPI) > 60.0 mL/Min [facility] Creatinine Clearance (Chem N/A [facility] Potassium [Moles/volume] in Serum or PlasmaOrdered By: Donte Badillo on 07-31-2023 Potassium [Moles/Vol] 4.5 mmol/L 3.5-5.1 [facility] Serum or plasma anion gap de terminationOrdered By: Donte Badillo on 07-31-2023 Anion gap [Moles/Vol] 8.5 mmol/L 6.0-15.0 [facility] Sodium [Moles/volume] in Ser um or PlasmaOrdered By: Donte Badillo on 07-31-2023 Sodium [Moles/Vol] 137 mmol/L 136-145 [facility] Thyrotropin [Units/volume] i n Serum or PlasmaOrdered By: Donte Badillo on 07-31-2023 TSH Qn 2.71 m[IU]/L 0.45-5.33 [facility] Urea nitrogen [Mass/volume] in Serum or PlasmaOrdered By: Donte Badillo on 07-31-2023 Urea nitrogen [Mass/Vol] 20 mg/dL 7-25 [facility] Bacteria identified Aer cx N om (Unsp spec)Ordered By: CWS Rosalio Mcnair on 01-19-2023 Superficial Wound Culture Strep agalactiae - (group b) [facility] Superficial Wound Culture Enterococcus faecalis [facility] Office Visit (Cardiology)on 12-15-2022 Follow-up visit Diagnoses/Problems Assessed Atherosclerosis of [place] coronary artery of [place] heart without angina pectoris (414.01) (I25.10) Benign essential hypertension (401.1) (I10) Diabetes mellitus (250.00) (E11.9) Hyperlipidemia (272.4) (E78.5) Ischemic cardiomyopathy (414.8) (I25.5) Ventricular tachycardia (427.1) (I47.20) High risk medication use (V58.69) (Z79.899) Class 2 obesity with body mass index (BMI) of 39.0 to 39.9 in adult (278.00,V85.39) (E66.9,Z68.39) Orders Class 2 obesity with body mass index (BMI) of 39.0 to 39.9 in adult Healthy Weight Tips; Status:Complete; Done: [id number] Some eating tips that can help you lose weight.; Status:Complete; Done: [id number] Ischemic cardiomyopathy IO EKG Electrocardiogram- 12 Lead; Status:Complete; Done: [id number] Patient Instructions Please bring all medicines, vitamins, and herbal supplements with you when you come to the office. Prescriptions will not be filled unless you are compliant with your follow up appointments or have a follow up appointment scheduled as per instruction of your physician. Refills should be requested at the time of your visit. Follow up in 6 months Chief Complaint DARELL JIMÉNEZ is being seen for a 7 month follow-up of. History of Present Illness Patient returns in follow-up of problems as noted. In the interim he had 1 defibrillator shock. This was discussed in tremendous detail. In the past we had always presume that shocks were associated with ischemia. Detailed review of his chart demonstrates that we done multiple heart catheterizations over the last 20 years each 1 after a cardiac arrest and/or defibrillator shock. Although the first time said shocks were associated with blockage he has had 3 heart catheterizations in a row with minimal disease and is excellent coronary artery patency that would suggest that reassessment, again, of his coronary disease is unnecessary. He understands and agrees. We note that his hypertension diabetes and hyperlipidemia are well controlled. He continues to diet and lose weight and he was congratulated in this regard. We discussed and reviewed in great detail his defibrillator checks. They demonstrate satisfactory device performance and what I believed to be no need for further adjustments in treatment of his arrhythmia or heart failure management. Because of all the above he will be seen in 6 months. Surgical History Problems History of Appendectomy History of Cardioverter defibrillator insertion History of Catheter ablation History of Colonoscopy History of Surgery previous stent placement Current Meds Medication NameInstruction ALPRAZolam 1 MG Oral TabletTAKE 1 TABLET EVERY 12 HOURS NEEDED. Amiodarone HCl - 200 MG Oral TabletTAKE 1 TABLET BY MOUTH EVERY DAY Aspirin 325 MG Oral Tablet Delayed ReleaseTake 1 tablet daily Atorvastatin Calcium 20 MG Oral TabletTAKE 1 TABLET AT BEDTIME Bumetanide 1 MG Oral TabletTAKE 1 - 2 TABLETS DAILY NEEDED WITH POTASSIUM. Carvedilol 25 MG Oral TabletTake 1 tablet twice daily Clopidogrel Bisulfate 75 MG Oral TabletTake 1 tablet daily Digoxin 125 MCG Oral TabletTAKE 1 TABLET DAILY. Famotidine 20 MG Oral TabletTake 1 tablet daily glipiZIDE ER 10 MG Oral Tablet Extended Release 24 HourTake 1 tablet twice daily Januvia 50 MG Oral TabletTAKE 1 TABLET DAILY. Lisinopril 5 MG Oral TabletTake 1 tablet daily Nitroglycerin 0.4 MG Sublingual Tablet SublingualPLACE 1 TABLET UNDER THE TONGUE EVERY 5 MINUTES UP TO 3 DOSES NEEDED FOR CHEST PAIN. Potassium Chloride ER 10 MEQ Oral Tablet Extended ReleaseTake 2 tablets every other day with Bumetanide Tradjenta 5 MG Oral TabletTAKE 1 TABLET DAILY. Allergies Medication Tricor Itching; Recorded By: Fatuma Nevarez; 03/16/2021 12:52:56 PM NonMedication IV Contrast Dye Hives;; Recorded By: Fatuma Nevarez; 03/16/2021 12:52:56 PM Social History Problems Alcohol use (V49.89) (Z78.9) occasional Caffeine use (V49.89) (Z78.9) occasional Former smoker (V15.82) (Z87.891) quit 2002 No illicit drug use Review of Systems Constitutional: not feeling tired. Eyes: no eyesight problems. ENT: no hearing loss and no nosebleeds. Cardiovascular: no intermittent leg claudication and as noted in HPI. Respiratory: no chronic cough and no shortness of breath. Gastrointestinal: no change in bowel habits and no blood in stools. Genitourinary: no urinary frequency and no hematuria. Skin: no skin rashes. Neurological: no seizures and no frequent falls. Psychiatric: no depression and not suicidal. All other systems have been reviewed and are negative for complaint. Vitals Vital Signs Recorded: [id number] 04:12PM Heart Rate68, Apical Rethttfl723, LUE, Sitting Xqiwhiwgv09, LUE, Sitting Height6 ft 2 in Teimzl718 lb BMI Xmdvmfjwyb55.29 kg/m2 BSA Calculated2.6 Tobacco Useb) No PHQ-2 #1. Over the last 2 weeks have you felt down, depressed or hopeless? (If yes, answer PHQ-9 below)No (more content not included)... Normal [facility] Tobacco Screening.on 023 Adult depression screening assessment No [facility] [employer] DO Work Phone: Fall risk assessment a) No falls within the last year [facility] [employer] DO Work Phone: Tobacco use status [facility] b) No [facility] [employer] DO Work Phone: Bacteria identified Aer cx N om (Unsp spec)Ordered By: CWS Rosalio Mcnair on 09-07-2022 Superficial Wound Culture Staphylococcus aureus [facility] Superficial Wound Culture Methicillin Resis Staph Aureus [facility] CNPNon 07-29-2022 CNPN Telephone (HEMAS[place]) DARELL JIMÉNEZ ([id number]) 1960 M Date Time Provider Department 07/29/22 JABARI OTERO During your visit today, we recorded the following information about you: Jabari Otero RN 07/29/2022 11:04 AM Signed Saadia Schmitz MD; Mary Jane Beckman Sec; Shanthi Madrid; Jabari Otero RN Per [facility], We need two orders. One for the spleen and one for the liver. Its two tests. Could you please put the other order in and then we can fax? Thanks, Chris Otero RN 07/29/2022 11:04 AM Signed NELSON: Order pending for Abd limited US, please add region of interest and sign. RICHARD Hubbard MD 07/30/2022 12:56 PM Signed Thank you. Ania Baez RN 08/01/2022 8:42 AM Signed Ang/Pao/Chloe- Covering for Jabari today. It looks like this order was placed and signed. I was not sure if you were able to see this or if there was something more that needed done. Thanks. RICHARD Galvan 08/01/2022 8:50 AM Signed Orders faxed to [facility] August 01, 2022 8:50 AM Shanthi Baez RN 08/01/2022 8:53 AM Signed Thank you Ania Baez RN Allergies As of Date: 07/29/2022 Noted Allergy Reaction AMOXICILLIN 07/27/2022 16 - Unknown DOXYCYCLINE HYCLATE 07/27/2022 16 - Unknown TRICOR (FENOFIBRATE MICRONIZED) 07/27/2022 16 - Unknown Date Reviewed: 07/28/2022 Reviewed by: Joycelyn Gerber - Fully Assessed Reason for Visit: Orders [681] Primary Visit Diagnosis:Other pancytopenia (HCC) [D61.818] Order(s):[facility] [[id number]] Order #: [id number] FUTURE Prescriptions as of 08/01/2022 - POTASSIUM ORAL Take by mouth. - bumetanide (BUMEX) 1 mg tablet Take 1 mg by mouth once daily. - nitroglycerin sublingual (NITROQUICK) 0.4 mg SL tablet Dissolve 0.4 mg under the tongue every 5 minutes as needed for chest pain. - ALPRAZolam (XANAX) 1 mg tablet Take 1 mg by mouth twice daily as needed. For Anxiety - amiodarone (PACERONE) 200 mg tablet - atorvastatin (LIPITOR) 20 mg tablet - carvedilol (COREG) 25 mg tablet - clopidogrel (PLAVIX) 75 mg tablet - digoxin (LANOXIN) 125 mcg (0.125 mg) tablet - glipiZIDE (GLUCOTROL) 10 mg tablet - lisinopril (ZESTRIL, PRINIVIL) 5 mg tablet - KLOR-CON M10 10 mEq tablet - JANUVIA 50 mg tablet - famotidine (PEPCID) 20 mg tablet Take 20 mg by mouth twice daily. - aspirin 81 mg cap Take by mouth. - linaGLIPtin (TRADJENTA) 5 mg tab Take 5 mg by mouth once daily. - baclofen (LIORESAL) 10 mg tablet Take 10 mg by mouth three times daily. Problem List As Of Date: 07/29/2022 (None) Encounter Status:Closed by ANIA BAEZ on 08/01/22 Normal [facility] CBC AUTO DIFFon 06-18-2022 BASO # 0.0 103/ul Normal 0.0-0.1 [facility] Comment on above: Performed By: #### C BC #### [facility] [address] [place] [address] Dr. Justin Castelan Basophils/100 WBC (Bld) 0.0 % Critically low 0.2-2.0 [facility] Comment on above: Performed By: #### C BC #### [facility] [address] [place] [address] Dr. Justin Castelan EO # 0.0 103/ul Normal 0.0-0.7 [facility] Comment on above: Performed By: #### C BC #### [facility] [address] [place] [address] Dr. Justin Castelan Eosinophils/100 WBC (Bld) 1.3 % Normal 0.9-7.0 [facility] Comment on above: Performed By: #### C BC #### [facility] [address] [place] [address] Dr. Justin Castelan Erythrocyte distribution width (RBC) [Ratio] 14.2 % Normal 11.0-15.0 [facility] Comment on above: Performed By: #### C BC #### [facility] [address] [place] [address] Dr. Justin Castelan Hematocrit (Bld) [Volume fraction] 35.5 % Critically low 42.0-54.0 [facility] Comment on above: Performed By: #### C BC #### [facility] [address] [place] [address] Dr. Justin Castelan Hemoglobin (Bld) [Mass/Vol] 12.7 g/dL Critically low 14.0-18.0 [facility] Comment on above: Performed By: #### C BC #### [facility] [address] [place] [address] Dr. Justin Castelan IG # 0.05 10e3/ul Critically high 0.00-0.03 [facility] Comment on above: Performed By: #### C BC #### [facility] [address] [place] [address] Dr. Justin Castelan IG % 2.2 % Critically high 0.0-0.5 [facility] Comment on above: Performed By: #### C BC #### [facility] [address] [place] [address] Dr. Justin Castelan LYMPH # 0.7 103/ul Critically low 1.2-3.8 [facility] Comment on above: Performed By: #### C BC #### [facility] [address] [place] [address] Dr. Justin Castelan Lymphocytes/100 WBC (Bld) 31.1 % Normal 20.5-60.0 [facility] Comment on above: Performed By: #### C BC #### [facility] [address] [place] [address] Dr. Justin Castelan MANUAL DIFF REQ NO Normal [facility] Comment on above: Performed By: #### C BC #### [facility] [address] [place] [address] Dr. Justin Castelan MCH (RBC) [Entitic mass] 32.2 pg Normal 25.9-34.0 [facility] Comment on above: Performed By: #### C BC #### [facility] [address] [place] [address] Dr. Justin Castelan MCHC (RBC) [Mass/Vol] 35.8 g/dL Critically high 29.9-35.2 [facility] Comment on above: Performed By: #### C BC #### [facility] [address] [place] [address] Dr. Justin Castelan MCV (RBC) [Entitic vol] 90.1 fL Normal 80.0-94.0 [facility] Comment on above: Performed By: #### C BC #### [facility] [address] [place] [address] Dr. Justin Castelan MONO # 0.7 103/ul Normal 0.3-0.8 [facility] Comment on above: Performed By: #### C BC #### [facility] [address] [address] [address] Justin Castelan Monocytes/100 WBC (Bld) 28.9 % Critically high 1.7-12. 0 [facility] Comment on above: Performed By: #### C BC #### [facility] [address] [address] [address] Justin Castelan NEUT # 0.8 103/ul Critically low 1.4-6.5 [facility] Comment on above: Performed By: #### C BC #### [facility] [address] [place] [address] Dr. Justin Castelan Neutrophils/100 WBC (Bld) 36.5 % Critically low 43.0-75.0 [facility] Comment on above: Performed By: #### C BC #### [facility] [address] [place] [address] Dr. Justin Castelan Platelet mean volume (Bld) [Entitic vol] 11.4 fL Normal 9.5-13.5 [facility] Comment on above: Performed By: #### C BC #### [facility] [address] [place] [address] Dr. Justin Castelan PLT 107 103/ul Critically low 150-450 [facility] Comment on above: Performed By: #### C BC #### [facility] [address] [place] [address] Dr. Justin Castelan RBC 3.94 106/ul Critically low 4.70-6.10 [facility] Comment on above: Performed By: #### C BC #### [facility] [address] [place] [address] Dr. Justin Castelan WBC 2.3 103/ul Critically low 4.0-11.0 [facility] Comment on above: Performed By: #### C BC #### [facility] [address] [place] [address] Dr. Justin Castelan GLYCOHEMOGLOBIN A1Con 2022 ADA RECOMMENDATION SEE BELOW Normal [facility] Comment on above: Result Comment: ADA RECOMMENDED LIMIT 4.0 - 6.0 ADA THERAPEUTIC TARGET < 7.0 ACTION SUGGESTED > 7.0 Performed By: #### A 1C #### [facility] [address] [place] [address] Dr. Justin Castelan Glucose [Mass/Vol] 177 mg/dL Normal [facility] Comment on above: Performed By: #### A 1C #### [facility] [address] [address] [address] Justin Castelan HbA1c (Bld) [Mass fraction] 7.8 % Critically high 4.5-6.2 [facility] Comment on above: Performed By: #### A 1C #### [facility] [address] [place] [address] Dr. Justin Castelan LIPID PROFILEon 06-18-2022 CHOL-HDL RATIO NORM SEE BELOW Normal [facility] Comment on above: Result Comment: 3.3 - 4.4 LOW RISK 4.4 - 7.1 AVERAGE RISK 7.1 - 11.0 MODERATE RISK >11.0 HIGH RISK Performed By: #### C MP, LIPID #### [facility] [address] [place] [address] Dr. Justin Castelan Cholesterol [Mass/Vol] 108 mg/dL Normal <=200 [facility] Comment on above: Performed By: #### C MP, LIPID #### [facility] [address] [place] [address] Dr. Justin Castelan Cholesterol in HDL [Mass/Vol] 38 mg/dL Critically low 40-60 [facility] Comment on above: Performed By: #### C MP, LIPID #### [facility] [address] [address] [address] Justin Castelan Cholesterol in LDL [Mass/Vol] 38.0 mg/dL Normal [facility] Comment on above: Performed By: #### C MP, LIPID #### [facility] [address] [place] [address] Dr. Justin Castelan Cholesterol.total/Laura sterol in HDL [Mass ratio] 2.8 {ratio} Normal [facility] Comment on above: Performed By: #### C MP, LIPID #### [facility] [address] [address] [address] Justin Castelan HDL NORMAL > or = 60 mg/dl - LO W CARDIOVASCULAR RISK <40 mg/dl - HIGH CARDIOVASCULAR RISK Normal [facility] Comment on above: Performed By: #### C MP, LIPID #### [facility] [address] [address] [address] Justin Castelan LDL CALC NORMAL SEE BELOW Normal [facility] Comment on above: Result Comment: <100 mg/dl OPTIMAL 100 - 129 mg/dl NEAR OR ABOVE OPTIMAL 130 - 159 mg/dl BORDERLINE HIGH 160 - 189 mg/dl HIGH >190 mg/dl VERY HIGH Performed By: #### C MP, LIPID #### [facility] [address] [address] [address] Justin Castelan Triglyceride [Mass/Vol] 160 mg/dL Critically high <=150 [facility] Comment on above: Performed By: #### C MP, LIPID #### [facility] [address] [address] [address] Justin Castelan VLDL CALC 32.0 mg/dL Normal [facility] Comment on above: Performed By: #### C MP, LIPID #### [facility] [address] [place] [address] Dr. Justin Castelan MICROALBUMIN, RAND URon 05-23 mALB 1.6 mg/L Normal <=30.0 [facility] Comment on above: Performed By: #### M ALBR #### [facility] [address] [address] [address] Justin Castelan PROF 14(COMP METB)on 023 Albumin [Mass/Vol] 3.6 g/dL Normal 3.4-5.0 [facility] Comment on above: Performed By: #### C MP, LIPID #### [facility] [address] [place] [address] Dr. Justin Castelan Albumin/Globulin [Mass ratio] 0.9 {ratio} Normal [facility] Comment on above: Performed By: #### C MP, LIPID #### [facility] [address] [address] [address] Justin Castelan ALP [Catalytic activity/Vol] 99 U/L Normal 46-116 [facility] Comment on above: Performed By: #### C MP, LIPID #### [facility] [address] [address] [address] Justin Castelan ALT [Catalytic activity/Vol] 21 U/L Normal 16-63 [facility] Comment on above: Performed By: #### C MP, LIPID #### [facility] [address] [address] [address] Justin Castelan Anion gap [Moles/Vol] 11.0 mmol/L Normal [facility] Comment on above: Performed By: #### C MP, LIPID #### [facility] [address] [address] [address] Justin Castelan AST [Catalytic activity/Vol] 15 U/L Normal 15-37 [facility] Comment on above: Performed By: #### C MP, LIPID #### [facility] [address] [address] [address] Justin Castelan Bilirubin [Mass/Vol] 0.8 mg/dL Normal 0.2-1.0 [facility] Comment on above: Performed By: #### C MP, LIPID #### [facility] [address] [address] [address] Justin Castelan Calcium [Mass/Vol] 8.7 mg/dL Normal 8.5-10.1 [facility] Comment on above: Performed By: #### C MP, LIPID #### [facility] [address] [address] [address] Justin Castelan Chloride [Moles/Vol] 97 mmol/L Critically low 98-107 [facility] Comment on above: Performed By: #### C MP, LIPID #### [facility] [address] [address] [address] Justin Castelan CO2 [Moles/Vol] 31.2 mmol/L Normal 21.0-32.0 [facility] Comment on above: Performed By: #### C MP, LIPID #### [facility] [address] [address] [address] Justin Castelan Creatinine [Mass/Vol] 1.54 mg/dL Critically high 0.70-1.30 [facility] Comment on above: Performed By: #### C MP, LIPID #### [facility] [address] [address] [address] Justin Castelan EGFR-AF [place]IZ[place] 56 mL/min/1.73m2 Critically low >=60 [facility] Comment on above: Performed By: #### C MP, LIPID #### [facility] [address] [address] [address] Justin Castelan EGFR-NON AF CITIZEN OF [place] 46 mL/min/1.73m2 Critically low >=60 [facility] Comment on above: Performed By: #### C MP, LIPID #### [facility] [address] [place] [address] Dr. Justin Castelan Globulin (S) [Mass/Vol] 4.1 g/dL Normal [facility] Comment on above: Performed By: #### C MP, LIPID #### [facility] [address] [address] [address] Justin Castelan Glucose [Mass/Vol] 277 mg/dL Critically high 74-106 [facility] Comment on above: Performed By: #### C MP, LIPID #### [facility] [address] [place] [address] Dr. Justin Castelan Potassium [Moles/Vol] 4.2 mmol/L Normal 3.5-5.1 [facility] Comment on above: Performed By: #### C MP, LIPID #### [facility] [address] [address] [address] Justin Castelan Protein [Mass/Vol] 7.7 g/dL Normal 6.4-8.2 [facility] Comment on above: Performed By: #### C MP, LIPID #### [facility] [address] [address] [address] Justin Castelan Sodium [Moles/Vol] 135 mmol/L Critically low 136-145 [facility] Comment on above: Performed By: #### C MP, LIPID #### [facility] [address] [place], [place] [address] Dr. Justin Castelan Urea nitrogen [Mass/Vol] 26.0 mg/dL Critically high 7.0-18.0 [facility] Comment on above: Performed By: #### C MP, LIPID #### [facility] [address] [place], [place] [address] Dr. Justin Castelan Urea nitrogen/Creatinine [Mass ratio] 16.9 mg/mg Normal [facility] Comment on above: Performed By: #### C MP, LIPID #### [facility] [address] [place], [place] [address] Dr. Justin Castelan Office Visit (Cardiology)on 06-16-2022 Follow-up visit Diagnoses/Problems Assessed Atherosclerosis of [place] coronary artery of [place] heart without angina pectoris (414.01) (I25.10) Benign essential hypertension (401.1) (I10) Diabetes mellitus (250.00) (E11.9) Hyperlipidemia (272.4) (E78.5) Ischemic cardiomyopathy (414.8) (I25.5) Ventricular tachycardia (427.1) (I47.20) High risk medication use (V58.69) (Z79.899) Former smoker (V15.82) (Z87.891) quit 2002 Morbid obesity with BMI of 40.0-44.9, adult (278.01,V85.41) (E66.01,Z68.41) Orders Atherosclerosis of [place] coronary artery of [place] heart without angina pectoris, Hyperlipidemia Renew: Aspirin 325 MG Oral Tablet Delayed Release; Take 1 tablet daily Benign essential hypertension Renew: Lisinopril 5 MG Oral Tablet; Take 1 tablet daily Hyperlipidemia Renew: Atorvastatin Calcium 20 MG Oral Tablet; TAKE 1 TABLET AT BEDTIME Morbid obesity with BMI of 40.0-44.9, adult Healthy Weight Tips; Status:Complete; Done: 16Jun2022 Some eating tips that can help you lose weight.; Status:Complete; Done: 16Jun2022 SocHx: Former smoker Tobacco Use Screening; Status:Complete; Done: 16Jun2022 Ventricular tachycardia IO EKG Electrocardiogram- 12 Lead; Status:Complete; Done: 16Jun2022 Patient Instructions Please bring all medicines, vitamins, and herbal supplements with you when you come to the office. Prescriptions will not be filled unless you are compliant with your follow up appointments or have a follow up appointment scheduled as per instruction of your physician. Refills should be requested at the time of your visit. Follow up in 6-9 months Follow up after testing completed Pacemaker/ Defibrillator routine follow-up PCP is providing alprazolam Chief Complaint DARELL JIMÉNEZ is being seen for a 3 month follow-up of. History of Present Illness Patient returns for follow-up of problems as noted. He is doing well. He has managed to keep off about 75 pounds of weight and he was congratulated in this regard. He has further ambitious weight loss goals and he was encouraged to pursue them. In the event that his blood pressure gets low he was encouraged to call and we would further downgrade and/or downwardly adjust his medical therapy. Presently it appears his hypertension hyperlipidemia and diabetes are well controlled. He has no other symptoms of coronary disease to proceed his diagnosis and subsequent intervention. Defibrillator checks are reviewed and found to be satisfactory. He has no manifestations of cardiomyopathy or heart failure because of all the above we will proceed as noted Surgical History Problems History of Appendectomy History of Cardioverter defibrillator insertion History of Catheter ablation History of Colonoscopy History of Surgery previous stent placement Current Meds Medication NameInstruction ALPRAZolam 1 MG Oral TabletTAKE 1 TABLET EVERY 12 HOURS NEEDED. Amiodarone HCl - 200 MG Oral TabletTake 1 tablet daily Aspirin 325 MG Oral Tablet Delayed ReleaseTake 1 tablet daily Atorvastatin Calcium 20 MG Oral TabletTAKE 1 TABLET AT BEDTIME Bumetanide 1 MG Oral TabletTAKE 1 - 2 TABLETS DAILY NEEDED WITH POTASSIUM. Carvedilol 25 MG Oral TabletTake 1 tablet twice daily Clopidogrel Bisulfate 75 MG Oral TabletTake 1 tablet daily Digoxin 125 MCG Oral TabletTAKE 1 TABLET DAILY. Famotidine 20 MG Oral TabletTake 1 tablet daily glipiZIDE ER 10 MG Oral Tablet Extended Release 24 HourTake 1 tablet twice daily Januvia 50 MG Oral TabletTAKE 1 TABLET DAILY. Lisinopril 5 MG Oral TabletTake 1 tablet daily Nitroglycerin 0.4 MG Sublingual Tablet SublingualPLACE 1 TABLET UNDER THE TONGUE EVERY 5 MINUTES UP TO 3 DOSES NEEDED FOR CHEST PAIN. Potassium Chloride ER 10 MEQ Oral Tablet Extended ReleaseTake 2 tablets every other day with Bumetanide Tradjenta 5 MG Oral TabletTAKE 1 TABLET DAILY. Allergies Medication Tricor Itching; Recorded By: Fatuma Nevarez; 03/16/2021 12:52:56 PM NonMedication IV Contrast Dye Hives;; Recorded By: Fatuma Nevarez; 03/16/2021 12:52:56 PM Social History Problems Alcohol use (V49.89) (Z78.9) occasional Caffeine use (V49.89) (Z78.9) occasional Former smoker (V15.82) (Z87.891) quit 2002 No illicit drug use Review of Systems Constitutional: not feeling tired. Eyes: no eyesight problems. ENT: no hearing loss and no nosebleeds. Cardiovascular: no intermittent leg claudication and as noted in HPI. Respiratory: no chronic cough and no shortness of breath. Gastrointestinal: no change in bowel habits and no blood in stools. Genitourinary: no urinary frequency and no hematuria. Skin: no skin rashes. Neurological: no seizures and no frequent falls. Psychiatric: no depression and not suicidal. All other systems have been reviewed and are negative for complaint. Vitals Vital Signs Recorded: 16Jun2022 03:42PM Heart Rate65, Apical Sbaprddv118, LUE, Sitting Xzksyhanp22, LUE, Sitting Height6 ft 2 in Jlhalg641 lb B (more content not included)... Normal [facility] Tobacco Screening.on 023 Adult depression screening assessment No [facility] [employer] DO Work Phone: Fall risk assessment a) No falls within the last year [facility] [employer] Work Phone: Tobacco use status [facility] b) No M [facility] [employer] Work Phone: Bacteria identified Aer cx N om (Unsp spec)Ordered By: CWIsidoro Mcnair on 01-05-2022 Superficial Wound Culture Staphylococcus aureus [facility] Tobacco Screening.on 022 Adult depression screening assessment No [facility] [employer] Work Phone: Fall risk assessment a) No falls within the last year [facility] [employer] DO Work Phone: Tobacco use status CPHS b) No M [facility] [facility] DO Work Phone: Creatinine and Glomerular fi ltration rate.predicted panel (S/P/Bld)Ordered By: Donte Badillo on 10-04-2021 Creatinine [Mass/Vol] 1.31 mg/dL 0.64-1.27 [facility] Estimated glomerular filtrat ion rate (GFR) non- AmericanOrdered By: Donte Badillo on 10-04-2021 GFR/1.73 sq M.predicted among non-blacks MDRD (S/P/Bld) [Vol rate/Area] 56 mL/Min [facility] No Panel InformationOrdered By: Donte Badillo on 10-04-2021 Estimated GFR () > 60 mL/Min [facility] Comment on above: GFR estimated refere nce range: According to KDOQI guidelines, <60 ml/min/1.73m2 is sufficient to diagnose a patient with chronic kidney disease. Pharmacy Creatinine Clearance (Chem N/A [facility] Serum or plasma aspartate am inotransferase measurement (enzymatic activity/volume)Ordered By: Donte Badillo on 10-04-2021 AST [Catalytic activity/Vol] 15 U/L 10-42 [facility] Serum or plasma calcium wanda urement (mass/volume)Ordered By: Donte Badillo on 10-04-2021 Calcium [Mass/Vol] 8.9 mg/dL 8.2-10.2 [facility] Serum or plasma chloride luann surement (moles/volume)Ordered By: Donte Badillo on 10-04-2021 Chloride [Moles/Vol] 104 mmol/L 95-114 [facility] Serum or plasma glucose wanda urement (mass/volume)Ordered By: Donte Badillo on 10-04-2021 Glucose [Mass/Vol] 236 mg/dL 70-100 [facility] Comment on above: ADA recommended refe rence range Random Glucose Reference Range is dependent on time and content of last meal. Glucose of more than 200 mg/dL in a nonstressed, ambulatory subject supports the diagnosis of Diabetes Mellitus. Serum or plasma potassium me asurement (moles/volume)Ordered By: Donte Badillo on 10-04-2021 Potassium [Moles/Vol] 4.4 mmol/L 3.5-5.1 [facility] Serum or plasma sodium measu rement (moles/volume)Ordered By: Donte Badillo on 10-04-2021 Sodium [Moles/Vol] 139 mmol/L 136-146 [facility] Serum or plasma total carbon dioxide measurement (moles/volume)Ordered By: Donte Badillo on 10-04-2021 CO2 [Moles/Vol] 25.8 mmol/L 22.0-30.0 [facility] Serum or plasma urea nitroge n measurement (mass/volume)Ordered By: Donte Badillo on 10-04-2021 Urea nitrogen [Mass/Vol] 16 mg/dL 9-23 [facility] TSH DL <= 0.005 mIU/L QnOrde red By: Donte Badillo on 10-04-2021 TSH Qn 3.28 m[IU]/L 0.45-5.33 [facility] Tobacco Screening.on 022 Tobacco use status CPHS b) No M [facility] [address] DO Work Phone: Amiodarone & Metaboliteon Amiodarone 0.9 ug/mL Normal 0.5-2.0 [facility] Comment on above: Result Comment: INTE RPRETIVE INFORMATION: AmiodaroneTherapeutic Range:Total (Amiodarone and metabolite): 0.5-2.0 ug/mLToxic Level:Total (Amiodarone and metabolite): Greater than 3.0 ug/mLToxic concentrations may exacerbate arrhythmias, cause liverand lung toxicity, and thyroid dysfunction. The concentrationof desethylamiodarone, an active major metabolite, is alsoreported, but no therapeutic range is established. Atsteady-state, the metabolite concentration is similar to theamiodarone concentration. Performed By: [id number] [place] [address] Y-Qcvolqex-Tigyxitbwf 0.7 ug/mL Normal [facility] Comment on above: Result Comment: Perf ormed by [email or web address],[address] [place] [address] pue.[employer], Adeel Ferrer MD - Lab. Director Performed By: [id number] [place] [address] Vital Signs Date Time Vital Sign Value Performing Clinician Facility 01-06-2025 14:50-0400 Body height 182.88 cm Berny Ball DO Work Phone: [facility] 01-06-2025 14:50-0400 Body mass index (BMI) [Ratio] 37.2 kg/m2 Berny Ball DO Work Phone: [facility] 01-06-2025 14:50-0400 Body weight 124.45 kg Berny Ball DO Work Phone: [facility] 01-06-2025 14:50-0400 Diastolic blood pressure 63 mm[Hg] Berny Ball DO Work Phone: [facility] 01-06-2025 14:50-0400 Heart rate 52 /min Berny Ball DO Work Phone: [facility] 01-06-2025 14:50-0400 Respiratory rate 12 /min Berny Ball DO Work Phone: [facility] 01-06-2025 14:50-0400 SaO2% (BldA) [Mass fraction] 100 % Berny Ball DO Work Phone: [facility] 01-06-2025 14:50-0400 Systolic blood pressure 132 mm[Hg] Berny Ball DO Work Phone: [facility] 10-01-2024 11:08-0400 Body height 182.88 cm Berny Ball DO Work Phone: [facility] 10-01-2024 11:08-0400 Body mass index (BMI) [Ratio] 39.2 kg/m2 Berny Ball DO Work Phone: [facility] 10-01-2024 11:08-0400 Body weight 131.08 kg Berny Ball DO Work Phone: [facility] 10-01-2024 11:08-0400 Diastolic blood pressure 65 mm[Hg] Berny Ball DO Work Phone: [facility] 10-01-2024 11:08-0400 Heart rate 67 /min Berny Ball DO Work Phone: [facility] 10-01-2024 11:08-0400 Respiratory rate 12 /min Berny Ball DO Work Phone: [facility] 10-01-2024 11:08-0400 SaO2% (BldA) [Mass fraction] 98 % Berny Ball DO Work Phone: [facility] 10-01-2024 11:08-0400 Systolic blood pressure 148 mm[Hg] Berny Ball DO Work Phone: [facility] 09-17-2024 15:20-0400 Body height 182.88 cm Berny Ball DO Work Phone: [facility] 09-17-2024 15:20-0400 Body mass index (BMI) [Ratio] 41.5 kg/m2 Berny Ball DO Work Phone: [facility] 09-17-2024 15:20-0400 Body weight 138.79 kg Berny Ball DO Work Phone: [facility] 09-17-2024 15:20-0400 Diastolic blood pressure 65 mm[Hg] Berny Ball DO Work Phone: [facility] 09-17-2024 15:20-0400 Heart rate 75 /min Berny Ball DO Work Phone: [facility] 09-17-2024 15:20-0400 Respiratory rate 12 /min Berny Ball DO Work Phone: [facility] 09-17-2024 15:20-0400 SaO2% (BldA) [Mass fraction] 97 % Berny Ball DO Work Phone: [facility] 09-17-2024 15:20-0400 Systolic blood pressure 133 mm[Hg] Berny Ball DO Work Phone: [facility] 08-15-2024 10:54-0400 Body height 188 cm Maria M Love MD Work Phone: [facility] 08-15-2024 10:54-0400 Body mass index (BMI) [Ratio] 39.93 kg/m2 Maria M Love MD Work Phone: [facility] 08-15-2024 10:54-0400 Body weight 141.07 kg Maria M Love MD Work Phone: [facility] 08-15-2024 10:54-0400 Diastolic blood pressure 58 mm[Hg] Maria M Love MD Work Phone: [facility] 08-15-2024 10:54-0400 Heart rate 52 /min Maria M Love MD Work Phone: [facility] 08-15-2024 10:54-0400 Systolic blood pressure 122 mm[Hg] Maria M Love MD Work Phone: [facility] 06-27-2024 08:34-0500 Body height 182.88 cm [facility] 06-27-2024 08:34-0500 Body mass index (BMI) [Ratio] 42.5 kg/m2 [facility] 06-27-2024 08:34-0500 Body weight 142.48 kg [facility] 06-27-2024 08:34-0500 Diastolic blood pressure 72 mm[Hg] [facility] 06-27-2024 08:34-0500 Heart rate 62 /min [facility] 06-27-2024 08:34-0500 SaO2% (BldA) [Mass fraction] 100 % [facility] 06-27-2024 08:34-0500 Systolic blood pressure 146 mm[Hg] [facility] 03-15-2024 15:16-0400 Body height 188 cm Maria M Love MD Work Phone: [facility] 03-15-2024 15:16-0400 Body mass index (BMI) [Ratio] 39.03 kg/m2 Maria M Love MD Work Phone: [facility] 03-15-2024 15:16-0400 Body weight 137.89 kg Maria M Love MD Work Phone: [facility] 03-15-2024 15:16-0400 Diastolic blood pressure 56 mm[Hg] Maria M Love MD Work Phone: [facility] 03-15-2024 15:16-0400 Heart rate 59 /min Maria M Love MD Work Phone: [facility] 03-15-2024 15:16-0400 Systolic blood pressure 126 mm[Hg] Maria M Love MD Work Phone: [facility] 10-10-2023 15:24-0400 Body height 182.88 cm DO Berny Ball Work Phone: [facility] 10-10-2023 15:24-0400 Body mass index (BMI) [Ratio] 42.7 kg/m2 DO Berny Ball Work Phone: [facility] 10-10-2023 15:24-0400 Body weight 143.1 kg DO Berny Ball Work Phone: [facility] 10-10-2023 15:24-0400 Diastolic blood pressure 76 mm[Hg] DO Berny Ball Work Phone: [facility] 10-10-2023 15:24-0400 Heart rate 71 /min DO Berny Ball Work Phone: [facility] 10-10-2023 15:24-0400 Respiratory rate 12 /min DO Berny Ball Work Phone: [facility] 10-10-2023 15:24-0400 Systolic blood pressure 155 mm[Hg] DO Berny Ball Work Phone: [facility] 01-10-2023 15:15-0400 Body height 182.88 cm Berny Ball Other [employer] Other 01-10-2023 15:15-0400 Body mass index (BMI) [Ratio] 41.69 kg/m2 Berny Ball Other [employer] Other 01-10-2023 15:15-0400 Body weight 139.44 kg Berny Ball Other [employer] Other 01-10-2023 15:15-0400 Diastolic blood pressure 64 mm[Hg] Berny Ball Other [employer] Other 01-10-2023 15:15-0400 Respiratory rate 12 /min Berny Ball Other [employer] Other 01-10-2023 15:15-0400 Systolic blood pressure 124 mm[Hg] Berny Ball Other [employer] Other 01-03-2023 15:15-0400 Body height 182.88 cm Berny Ball Other [employer] Other 01-03-2023 15:15-0400 Body mass index (BMI) [Ratio] 41.69 kg/m2 Berny Ball Other [employer] Other 01-03-2023 15:15-0400 Body weight 139.44 kg Berny Ball Other [employer] Other 01-03-2023 15:15-0400 Diastolic blood pressure 67 mm[Hg] Berny Ball Other [employer] Other 01-03-2023 15:15-0400 Respiratory rate 12 /min Berny Ball Other [employer] Other 01-03-2023 15:15-0400 Systolic blood pressure 127 mm[Hg] Berny Ball Other [facility] [employer] Other 12-15-2022 16:12-0400 Body height 187.96 cm Berny E Ball Work Phone: [facility] [facility] DO Work Phone: 12-15-2022 16:12-0400 Body mass index (BMI) [Ratio] 39.29 kg/m2 Berny E Ball Work Phone: [facility] 250 DO Work Phone: 12-15-2022 16:12-0400 Body surface area Derived from formula 2.6 m2 Berny E Ball Work Phone: [facility] 250 DO Work Phone: 12-15-2022 16:12-0400 Body weight 138.8 kg Berny E Ball Work Phone: [facility] 250 DO Work Phone: 12-15-2022 16:12-0400 Diastolic blood pressure 60 mm[Hg] Berny E Ball Work Phone: [facility] [facility] DO Work Phone: 12-15-2022 16:12-0400 Heart rate 68 /min Berny E Ball Work Phone: [facility] [facility] DO Work Phone: 12-15-2022 16:12-0400 Systolic blood pressure 130 mm[Hg] Berny E Ball Work Phone: [facility] 250 DO Work Phone: 07-28-2022 15:51-0500 Body height 188 cm Trey Schmitz MD Work Phone: [facility] 07-28-2022 15:51-0500 Body temperature 97.9 [degF] Trey Schmitz MD Work Phone: [facility] 07-28-2022 15:51-0500 Body weight 143.25 kg Trey Schmitz MD Work Phone: [facility] 07-28-2022 15:51-0500 Diastolic blood pressure 61 mm[Hg] Trey Schmitz MD Work Phone: [facility] 07-28-2022 15:51-0500 Heart rate 64 /min Trey Schmitz MD Work Phone: [facility] 07-28-2022 15:51-0500 Respiratory rate 18 /min Trey Schmitz MD Work Phone: [facility] 07-28-2022 15:51-0500 SaO2% (BldA) [Mass fraction] 98 % Trey Schmitz MD Work Phone: [facility] 07-28-2022 15:51-0500 Systolic blood pressure 133 mm[Hg] Trey Schmitz MD Work Phone: [facility] 06-16-2022 15:42-0500 Body height 187.96 cm Berny Tran Ball Work Phone: [facility] [employer] 250 DO Work Phone: 06-16-2022 15:42-0500 Body mass index (BMI) [Ratio] 40.32 kg/m2 Berny Tran Ball Work Phone: [facility] [employer] 250 DO Work Phone: 06-16-2022 15:42-0500 Body surface area Derived from formula 2.63 m2 Berny Tran Ball Work Phone: [facility] [employer] 250 DO Work Phone: 06-16-2022 15:42-0500 Body weight 142.43 kg Berny Tran Ball Work Phone: [facility] [employer] 250 DO Work Phone: 06-16-2022 15:42-0500 Diastolic blood pressure 58 mm[Hg] Berny E Ball Work Phone: [facility] [employer] 250 DO Work Phone: 06-16-2022 15:42-0500 Heart rate 65 /min Berny E Ball Work Phone: [facility] [employer] 250 DO Work Phone: 06-16-2022 15:42-0500 Systolic blood pressure 130 mm[Hg] Berny E Ball Work Phone: [facility] [employer] 250 DO Work Phone: 12-17-2021 14:53-0400 Body height 187.96 cm Berny E Ball Work Phone: [facility] [employer] 250 DO Work Phone: 12-17-2021 14:53-0400 Body mass index (BMI) [Ratio] 39.67 kg/m2 Berny Tran Ball Work Phone: [facility] [employer] 250 DO Work Phone: 12-17-2021 14:53-0400 Body surface area Derived from formula 2.61 m2 Berny E Ball Work Phone: [facility] [employer] 250 DO Work Phone: 12-17-2021 14:53-0400 Body weight 140.16 kg Berny E Ball Work Phone: [facility] [employer] 250 DO Work Phone: 12-17-2021 14:53-0400 Diastolic blood pressure 52 mm[Hg] Berny E Ball Work Phone: [facility] [employer] 250 DO Work Phone: 12-17-2021 14:53-0400 Heart rate 64 /min Berny E Ball Work Phone: [facility] [employer] 250 DO Work Phone: 12-17-2021 14:53-0400 Systolic blood pressure 112 mm[Hg] Berny E Ball Work Phone: [facility] 250 DO Work Phone: 05-25-2021 11:47-0500 Body height 187.96 cm Berny Tran Ball Work Phone: [facility] 250 DO Work Phone: 05-25-2021 11:47-0500 Body mass index (BMI) [Ratio] 41.98 kg/m2 Berny Tran Ball Work Phone: [facility] 250 DO Work Phone: 05-25-2021 11:47-0500 Body surface area Derived from formula 2.68 m2 Berny Tran Ball Work Phone: [facility] 250 DO Work Phone: 05-25-2021 11:47-0500 Body weight 148.33 kg Berny Tran Ball Work Phone: [facility] 250 DO Work Phone: 05-25-2021 11:47-0500 Diastolic blood pressure 64 mm[Hg] Berny Tran Ball Work Phone: [facility] 250 DO Work Phone: 05-25-2021 11:47-0500 Heart rate 92 /min Berny Tran Ball Work Phone: [facility] 250 DO Work Phone: 05-25-2021 11:47-0500 Systolic blood pressure 124 mm[Hg] Berny Tran Ball Work Phone: [facility] 250 DO Work Phone: Encounters Encounter Date Encounter Type Care Provider Facility Start: 02-04-2025 End: 02-04-2025 ambulatory Maria M Love Facility:[facility] Start: 02-04-2025 Non-patient / Non-visit [facility] Rowe [facility] Start: 01-06-2025 End: 01-06-2025 ambulatory Berny Donovan DO Work Phone: [facility] Work Phone: Start: 01-06-2025 End: 01-06-2025 Patient encounter procedure Berny Donovan DO -[facility] Work Phone: Start: 01-06-2025 End: 01-06-2025 Patient encounter status Berny Donovan DO [facility] Start: 11-01-2024 End: 11-01-2024 Patient encounter procedure Berny Donovan DO -[facility] Work Phone: Start: 10-01-2024 End: 10-01-2024 ambulatory Berny Donovan DO Work Phone: [facility] Work Phone: Start: 10-01-2024 End: 10-01-2024 Patient encounter procedure Berny Donovan DO Work Phone: [facility] Work Phone: Start: 09-17-2024 End: 09-17-2024 ambulatory Berny Donovan DO Work Phone: [facility] Work Phone: Start: 09-17-2024 End: 09-17-2024 Patient encounter procedure Berny Donovan DO Work Phone: [facility] Work Phone: Start: 09-04-2024 Non-patient / Non-visit Torin in Ball DO Work Phone: [facility] Work Phone: Start: 08-15-2024 End: 08-15-2024 ambulatory MARIA M [facility] Amb[facility] Start: 08-15-2024 End: 08-15-2024 Office outpatient visit 25 minutes Maria M Love MD Work Phone: [facility] Comment on above: Class 2 obesity (Yari rosemary Dx); Atherosclerosis of [place] coronary artery of [place] heart without angina pectoris; Ischemic cardiomyopathy; Ventricular tachycardia (Multi); Cardiac defibrillator in place; Benign essential hypertension; Hyperlipidemia, unspecified hyperlipidemia type; High risk medication use; BMI 39.0-39.9,adult; Former smoker; Paroxysmal atrial fibrillation (Multi); Mixed hyperlipidemia Start: 08-12-2024 End: 08-13-2024 ambulatory Maria M Mercedesim [place] [place] Start: 08-12-2024 End: 08-13-2024 Patient encounter procedure Maria M Mercedesim [facility] Start: 08-05-2024 Non-patient / Non-visit Benjam in Janina DO Work Phone: [facility] Work Phone: Start: 08-05-2024 End: 08-05-2024 Patient encounter procedure Berny [facility] Work Phone: [facility] Work Phone: Start: 08-05-2024 End: 08-05-2024 ambulatory [facility] DO Work Phone: [facility] Work Phone: Start: 06-27-2024 End: 06-27-2024 ambulatory [facility] Work Phone: Start: 06-27-2024 End: 06-27-2024 Patient encounter procedure [facility] Work Phone: Start: 06-04-2024 End: 06-04-2024 ambulatory Maria M Arceahim Facility:[facility] Start: 06-04-2024 Non-patient / Non-visit [facility] Start: 04-09-2024 Non-patient / Non-visit [facility] Work Phone: Start: 03-21-2024 End: 03-21-2024 ambulatory [facility] Work Phone: Start: 03-21-2024 End: 03-21-2024 Patient encounter procedure [facility] Work Phone: Start: 03-16-2024 Non-patient / Non-visit [facility] Work Phone: Start: 03-15-2024 End: 03-15-2024 Office outpatient visit 25 minutes Maria M Love MD Work Phone: [facility] Comment on above: Ventricular tachycar robert (Multi) (Primary Dx); Left ventricular systolic dysfunction; Benign essential hypertension; Hyperlipidemia, unspecified hyperlipidemia type; Cardiac defibrillator in place; Type 2 diabetes mellitus without complication, without long-term current use of insulin (Multi); BMI 39.0-39.9,adult; Former smoker; Atherosclerosis of [place] coronary artery of [place] heart without angina pectoris; Ischemic cardiomyopathy; Class 2 obesity Start: 03-15-2024 End: 03-15-2024 ambulatory [facility] Ambulatory Start: 02-21-2024 End: 02-21-2024 Patient encounter procedure DO Berny Ball Work Phone: [facility] Start: 02-21-2024 End: 02-21-2024 ambulatory DO Berny Ball Work Phone: [facility] Work Phone: Start: 02-21-2024 Non-patient / Non-visit [facility] Start: 11-21-2023 End: 11-21-2023 ambulatory DO Breny Ball Work Phone: [facility] Work Phone: Start: 11-21-2023 End: 11-21-2023 Patient encounter procedure DO Berny Ball Work Phone: [facility] Start: 10-10-2023 End: 10-10-2023 ambulatory DO Berny Ball Work Phone: [facility] Work Phone: Start: 10-10-2023 End: 10-10-2023 Encounter for general adult medical examination without abnormal findings DO Berny Ball Work Phone: [facility] Start: 10-10-2023 End: 10-10-2023 Patient encounter procedure DO Berny Donovan Work Phone: [facility] Work Phone: Start: 08-22-2023 End: 08-22-2023 ambulatory DO Berny Donovan Work Phone: [facility] Work Phone: Start: 08-22-2023 End: 08-22-2023 Patient encounter procedure DO Berny Donovan Work Phone: [facility] Start: 07-31-2023 Non-patient / Non-visit DO Pedro melendezsaud Donovan Work Phone: [facility] Work Phone: Start: 07-31-2023 End: 07-31-2023 Patient encounter procedure DO Berny Donovan Work Phone: [facility] Work Phone: Start: 05-19-2023 End: 05-19-2023 ambulatory DO Berny Donovan Work Phone: [facility] Work Phone: Start: 05-19-2023 End: 05-19-2023 Patient encounter procedure DO Berny Donovan Work Phone: [facility] Start: 04-04-2023 End: 04-04-2023 ambulatory Berny Janina Other [facility] [employer] Other Start: 04-04-2023 Telephone encounter [facility] Start: 02-14-[address] Berny Donovan Facility:[id number] Start: 02-14-2023 End: 02-14-2023 ambulatory DO Berny Janina Work Phone: [facility] Work Phone: Start: 02-14-2023 End: 02-14-2023 Patient encounter procedure DO Berny Donovan Work Phone: [facility] Start: 01-19-2023 End: 01-19-2023 ambulatory MD Donte Badillo Work Phone: [facility] Work Phone: Start: 01-19-2023 End: 01-19-2023 Departed Referred MD Donte Badillo Work Phone: [facility] [place] Work Phone: Start: 01-10-2023 End: 01-10-2023 ambulatory Berny Donovan Other [employer] Other Start: 01-10-2023 Patient encounter procedure Berny Donovan [facility] Start: 01-03-2023 End: 01-03-2023 ambulatory Berny Donovan Other [employer] Other Start: 01-03-2023 Office outpatient vi sit 15 minutes Berny Donovan [facility] Start: 12-15-2022 Office outpatient vi sit 40 minutes Berny Donovan Work Phone: [facility] 250 DO Work Phone: Start: 12-15-2022 Patient encounter procedure Berny Donovan Work Phone: [facility] 250 DO Work Phone: Start: 12-15-[address] Donte Badillo II Facility: Start: 11-28-2022 End: 11-28-2022 ambulatory DPTomy Mcnair Work Phone: [facility] Work Phone: Start: 11-28-2022 End: 11-28-2022 Patient encounter procedure DPTomy Mcnair Work Phone: [facility] Start: 11-26-[address] Berny Donovan Facility:[id number] Start: 11-10-2022 End: 11-10-2022 Patient encounter procedure DPM Rosalio Mcnair Work Phone: [facility] Start: 11-10-2022 End: 11-10-[address] Berny Donovan [facility] Work Phone: Start: 09-14-2022 End: 09-14-2022 ambulatory Berny [facility] Other Start: 09-14-2022 Telephone encounter Berny LAMBERT Count Includes [facility] Start: 09-08-2022 End: 09-08-2022 ambulatory Berny Donovan Other [facility] Other Start: 09-08-2022 Telephone encounter Berny LAMBERT Count Includes [facility] Start: 09-08-2022 AUDIT Berny ralph Work Phone: [facility] 250 DO Work Phone: Start: 09-07-2022 End: 09-07-2022 Departed Referred DPM Rosalio Atkinsareli Work Phone: [facility] [place] Work Phone: Start: 08-17-2022 Patient encounter procedure Berny Donovan Work Phone: [facility] 250 DO Work Phone: Start: 08-09-[address] Berny Donovan Facility:[id number] Start: 08-09-2022 End: 08-09-2022 ambulatory DO Berny Donovan Work Phone: [facility] Work Phone: Start: 08-09-2022 End: 08-09-2022 Patient encounter procedure DO Berny Donovan Work Phone: [facility]-Pacemaker Check Start: 07-29-2022 Telephone encounter Jabari Otero RN Hematology/Oncology Comment on above: Orders Start: 07-28-2022 End: 07-28-2022 ambulatory TREY SCHMITZ Facility:[facility] Start: 07-28-2022 End: 07-28-2022 Office outpatient new 45 minutes Trey Schmitz MD Work Phone: Hematology/Oncology Comment on above: Other pancytopenia ( HCC) (Primary Dx); Anemia of chronic renal failure, stage 3a (HCC) Start: 07-27-2022 Chart abstracting Trey richards MD Work Phone: Hematology/Oncology Start: 07-18-2022 End: 07-18-2022 ambulatory Berny Donovan Other [employer] Other Start: 07-18-2022 Tele[facility] Start: 07-05-2022 End: 07-05-2022 ambulatory Berny Donovan Other [employer] Other Start: 07-05-2022 Telephone encounter [facility] Start: 07-04-2022 Rx Renewal Berny ralph Work Phone: [employer] 599 DO Work Phone: Start: 06-21-2022 Encounter for genera l adult medical examination without abnormal findings DR BERNY DONOVAN [facility] Start: 06-18-2022 End: 06-19-[address] BERNY DONOVAN Facility:H1 Start: 06-18-2022 End: 06-19-2022 Encounter for general adult medical examination without abnormal findings DR BERNY DONOVAN Facility:[facility]1 Start: 06-17-2022 End: 06-17-2022 ambulatory Berny Donovan Other [employer] Other Start: 06-17-2022 Telephone encounter Berny [facility] Start: 06-16-2022 Office outpatient vi sit 25 minutes Berny Donovan Work Phone: [employer] 250 DO Work Phone: Start: 06-16-[address] Berny Donovan Facility:[id number] Start: 06-03-2022 End: 06-03-2022 ambulatory Berny Donovan [facility] Other Start: 06-03-2022 Telephone encounter [facility] Start: 05-11-2022 End: 05-11-2022 ambulatory DO Berny Donovan Work Phone: [facility] Work Phone: Start: 05-11-2022 End: 05-11-2022 Patient encounter procedure DO Berny Donovan Work Phone: [facility]-Pacemaker Check Start: 02-18-2022 Patient encounter procedure Berny Donovan Work Phone: [facility] 600 DO Work Phone: Start: 02-08-2022 End: 02-08-2022 Patient encounter procedure DPTomy Mcnair Work Phone: [facility] Check Start: 12-28-2021 End: 12-28-2021 Departed Referred DO Berny Donovan Work Phone: [facility]-Lab [address] Start: 12-17-2021 Office outpatient vi sit 25 minutes Berny Donovan Work Phone: [facility] 250 DO Work Phone: Start: 12-17-2021 Patient encounter procedure Berny Donovan Work Phone: [facility] 250 DO Work Phone: Start: 11-05-2021 End: 11-05-2021 Patient encounter procedure DO Berny Donovan Work Phone: [facility]-Pacemaker Check Start: 10-04-2021 End: 10-04-2021 Patient encounter procedure DO Berny Donovan Work Phone: [facility]-Res[facility] Therapy Start: 09-06-2021 Rx Renewal Berny ralph Work Phone: [facility] 250 DO Work Phone: Start: 08-10-2021 End: 08-10-2021 Patient encounter procedure DO Berny Donovan Work Phone: [facility] Check Start: 07-09-2021 AUDIT Berny Fernandez l Work Phone: [facility] 600 DO Work Phone: Start: 06-23-2021 Rx Renewal Berny Tran Bal l Work Phone: [facility] 250 DO Work Phone: Start: 06-02-2021 Rx Renewal Berny Tran Bal l Work Phone: [facility] 250 DO Work Phone: Start: 05-25-2021 Office outpatient vi sit 25 minutes Berny Donovan Work Phone: [facility] 250 DO Work Phone: Start: 05-13-2021 End: 05-13-2021 Patient encounter procedure DO Berny Donovan Work Phone: [facility] Check Start: 04-19-2021 Rx Renewal Donte simpson MD Work Phone: [facility] 250 DO Work Phone: Start: 04-08-2021 Rx Renewal Donte simpson MD Work Phone: [facility] 250 DO Work Phone: Start: 03-29-2021 AUDIT Donte simpson MD Work Phone: [facility] 250 DO Work Phone: Start: 11-16-2017 Patient encounter DONTE BADILLO Facility:[id number] Procedures Date Procedure Procedure Detail Performing Clinician Start: 08-15-2024 Ecg routine ecg w/le ast 12 lds w/i&r Maria M Love MD Work Phone: Start: 08-05-2024 Plain chest X-ray Miguel min Ball DO Work Phone: Start: 03-15-2024 Ecg routine ecg w/le ast 12 lds w/i&r Maria M Love MD Work Phone: Start: 07-31-2023 Plain chest X-ray DO Be njamin Janina Work Phone: Start: 01-19-2023 Aerobic microbial culture DO Berny Donovan Work Phone: Start: 09-07-2022 Aerobic microbial culture DPM Rosalio Mcnair Work Phone: Start: 06-18-[address] WOODARD IN [employer] Comment on above: Performed By: #### [facility] #### [facility] [address] [place] [address] Dr. Justin Castelan Start: 10-04-2021 Plain chest X-ray DO Be njamin Janina Work Phone: Aerobic microbial culture DO Berny Donovan Work Phone: Appendectomy Berny Donovan Work Phone: Catheter ablation of arrhythmogenic focus Berny Donovan Work Phone: Colonoscopy Berny Donovan Work Phone: Insertion of pulse generator of implantable cardioverter defibrillator Berny Donovan Work Phone: Surgical procedure Berny Donovan Work Phone: Comment on above: previous stent place ment; Plan of Treatment Date Care Activity Detail Author Start: 12-13-2030 DTaP/Tdap/Td Vaccines (2 - Tdap) DTaP/Tdap/Td Vaccines (2 - Tdap) [facility] Start: 06-18-2027 PROSTATE CANCER SCREENING DISCUSSION PROSTATE CANCER SCREENING DISCUSSION [facility] Start: 04-04-2025 End: 04-04-2025 Patient encounter procedure 04/04/2025 2:10 PM EST Office Visit [facility] [address] [place] [address] Maria M Love MD [address] [place] [address] [facility] Start: 12-24-2024 DIABETES SCREEN DIABETES SCREEN [facility] Start: 09-26-2024 End: 09-26-2024 Patient encounter procedure 09/26/2024 9:10 AM EDT Office Visit [facility] [address] [place] [id number] Maria M Love MD [address] [place] [address] [facility] Start: 08-15-2024 End: 08-15-2025 Alanine aminotransferase [Enzymatic activity/volume] in Serum or Plasma by With P-5'-P Alanine Aminotransferase Lab Routine Atherosclerosis of [place] coronary artery of [place] heart without angina pectoris Hyperlipidemia, unspecified hyperlipidemia type Expected: 08/15/2024 (Approximate), Expires: 08/15/2025 [facility] Service Area Work Phone: Comment on above: Expected: 08/15/2024 (Approximate), Expi res: 08/15/2025 Start: 08-15-2024 End: 08-15-2025 Aspartate aminotransferase [Enzymatic activity/volume] in Serum or Plasma by With P-5'-P Aspartate Aminotransferase Lab Routine Atherosclerosis of [place] coronary artery of [place] heart without angina pectoris High risk medication use Expected: 08/15/2024 (Approximate), Expires: 08/15/[address] [facility] Work Phone: Comment on above: Expected: 08/15/2024 (Approximate), Expi res: 08/15/2025 Start: 08-15-2024 End: 08-15-2025 Basic metabolic 2000 panel - Serum or Plasma Basic Metabolic Panel Lab Routine Atherosclerosis of [place] coronary artery of [place] heart without angina pectoris Ischemic cardiomyopathy High risk medication use Expected: 08/15/2024 (Approximate), Expires: 08/15/[address] [facility] Work Phone: Comment on above: Expected: 08/15/2024 (Approximate), Expi res: 08/15/2025 Start: 08-15-2024 End: 08-15-2025 CBC panel - Blood by Automated count CBC Lab Routine Atherosclerosis of [place] coronary artery of [place] heart without angina pectoris Ischemic cardiomyopathy Expected: 08/15/2024 (Approximate), Expires: 08/15/[address] [facility] Work Phone: Comment on above: Expected: 08/15/2024 (Approximate), Expi res: 08/15/2025 Start: 08-15-2024 End: 08-15-2025 Lipid 1996 panel - Serum or Plasma Lipid Panel Lab Routine Atherosclerosis of [place] coronary artery of [place] heart without angina pectoris Hyperlipidemia, unspecified hyperlipidemia type Expected: 08/15/2024 (Approximate), Expires: 08/15/[address] [facility] Work Phone: Comment on above: Expected: 08/15/2024 (Approximate), Expi res: 08/15/2025 Start: 08-15-2024 End: 08-15-2025 Thyrotropin [Units/volume] in Serum or Plasma Thyroid Stimulating Hormone Lab Routine Atherosclerosis of [place] coronary artery of [place] heart without angina pectoris Ventricular tachycardia (Multi) High risk medication use Expected: 08/15/2024 (Approximate), Expires: 08/15/[address] [facility] Work Phone: Comment on above: Expected: 08/15/2024 (Approximate), Expi res: 08/15/2025 Start: 07-22-2024 End: 03-15-2025 Complete Pulmonary Function Test (Spirometry/DLCO/Lung Volumes) Complete Pulmonary Function Test (Spirometry/DLCO/Lung Volumes) PFT Routine Ventricular tachycardia (Multi) Ischemic cardiomyopathy Expected: 07/22/2024 (Approximate), Expires: 03/15/[address] [facility] Work Phone: Comment on above: Expected: 07/22/2024 (Approximate), Expi res: 03/15/2025 Start: 07-22-2024 End: 03-15-2025 XR Chest 2 Views XR chest 2 views Imaging Routine Ventricular tachycardia (Multi) Ischemic cardiomyopathy Expected: 07/22/2024, Expires: 03/15/[address] [facility] Work Phone: Comment on above: Expected: 07/22/2024, Expires: Start: 03-29-2024 End: 03-29-2024 Patient encounter procedure 03/29/2024 8:45 AM EST [facility] [address] [place] [address] Liliam Fleming Start: 03-15-2024 End: 03-15-2026 US Heart Transthoracic Transthoracic Echo Complete Echocardiography Routine Ischemic cardiomyopathy Cardiac defibrillator in place Expected: 03/15/2024 (Approximate), Expires: 03/15/2026 [facility] Service Area Work Phone: Comment on above: Expected: 03/15/2024 (Approximate), Expi res: 03/15/2026 Start: 01-21-2024 COVID-19 Vaccine ( season) COVID-19 Vaccine ( season) [facility] Start: 01-21-2024 Influenza vaccination Influenza Vaccine (#1) [facility] Start: 06-21-2023 FUV, Provider: Donte Badillo, Status: Pen, Time: 3:50 PM FUV, Provider: Donte Badillo, Status: Pen, Time: 3:50 PM [facility] 250 DO Work Phone: Start: 01-19-2023 Superficial Wound Culture Superficial Wound Culture [facility] Start: 12-30-2022 FUV, Provider: Donte Badillo, Status: Pen, Time: 2:00 PM FUV, Provider: Donte Badillo, Status: Pen, Time: 2:00 PM [facility] 250 DO Work Phone: Start: 08-04-2022 End: 07-29-2023 CBC W Auto Differential panel - Blood CBC + DIFF Lab Routine Other pancytopenia (HCC) Anemia of chronic renal failure, stage 3a (HCC) Expected: 08/04/2022 (Approximate), Expires: 07/29/2023 [facility] Work Phone: Comment on above: Expected: 08/04/2022 (Approximate), Expi res: 07/29/2023 Start: 08-04-2022 End: 07-29-2023 Comprehensive metabolic 2000 panel - Serum or Plasma COMP METABOLIC PANEL Lab Routine Other pancytopenia (HCC) Anemia of chronic renal failure, stage 3a (HCC) Expected: 08/04/2022 (Approximate), Expires: 07/29/2023 [facility] Work Phone: Comment on above: Expected: 08/04/2022 (Approximate), Expi res: 07/29/2023 Start: 08-04-2022 End: 10-04-2022 Erythropoietin (EPO) [Units/volume] in Serum or Plasma ERYTHROPOIETIN/EPO Lab Routine Other pancytopenia (HCC) Anemia of chronic renal failure, stage 3a (HCC) Expected: 08/04/2022 (Approximate), Expires: 10/04/2022 [facility] Work Phone: Comment on above: Expected: 08/04/2022 (Approximate), Expi res: 10/04/2022 Start: 08-04-2022 End: 07-29-2023 Lactate dehydrogenase [Enzymatic activity/volume] in Serum or Plasma LD LACTATE DEHYDRO Lab Routine Other pancytopenia (HCC) Anemia of chronic renal failure, stage 3a (HCC) Expected: 08/04/2022 (Approximate), Expires: 07/29/2023 [facility] Work Phone: Comment on above: Expected: 08/04/2022 (Approximate), Expi res: 07/29/2023 Start: 08-04-2022 End: 08-27-2023 Us abdominal real time w/image limited US ABD SPLEEN Radiology Routine Other pancytopenia (HCC) Anemia of chronic renal failure, stage 3a (HCC) Expected: 08/04/2022 (Approximate), Expires: 08/27/2023 [facility] Work Phone: Comment on above: Expected: 08/04/2022 (Approximate), Expi res: 08/27/2023 Start: 05-22-2022 DEPRESSION ASSESSMENT DEPRESSION ASSESSMENT [facility] Start: 04-13-2022 FUV, Provider: Donte Badillo, Status: Gabe, Time: 12:00 PM FUV, Provider: Donte Badillo, Status: Pen, Time: 12:00 PM -[facility] 600 DO Work Phone: Start: 01-20-2022 Influenza vaccination INFLUENZA (#1) [facility] Start: 12-14-2021 FUV, Provider: Donte Badillo, Status: Pen, Time: 10:50 AM FUV, Provider: Donte Badillo, Status: Pen, Time: 10:50 AM -[facility] 250 DO Work Phone: Start: 05-25-2021 FUV, Provider: Donte Badillo, Status: Pen, Time: 11:15 AM FUV, Provider: Donte Badillo, Status: Pen, Time: 11:15 AM -[facility] 250 DO Work Phone: Start: 2020 RSV High Risk: (Elderly (60+) or Population) (1 - Risk 60-74 years 1-dose series) RSV High Risk: (Elderly (60+) or Population) (1 - Risk 60-74 years 1-dose series) [facility] Start: 01-03-2015 PROSTATE CANCER SCREENING DISCUSSION PROSTATE CANCER SCREENING DISCUSSION [facility] Start: 01-03-2010 SHINGRIX VACCINE (1 of 2) SHINGRIX VACCINE (1 of 2) [facility] Start: 01-03-2010 Zoster Vaccines (1 of 2) Zoster Vaccines (1 of 2) [facility] Start: 05-22-2007 Pneumococcal vaccination Pneumococcal Vaccine (2 of 2 - PCV) [facility] Start: 05-22-2007 Pneumococcal Vaccine: 65+ Years (2 of 2 - PCV) Pneumococcal Vaccine: 65+ Years (2 of 2 - PCV) [facility] Start: 05-22-2007 Pneumococcal Vaccine: Pediatrics (0 to 5 Years) and At-Risk Patients (6 to 64 Years) (2 of 2 - PCV) Pneumococcal Vaccine: Pediatrics (0 to 5 Years) and At-Risk Patients (6 to 64 Years) (2 of 2 - PCV) [facility] Start: 01-03-2005 COLOGUARD (FIT-DNA) COLOGUARD (FIT-DNA) [facility] Start: 01-03-2005 Colonoscopy COLONOSCOPY [facility] Start: 01-03-2005 COLORECTAL CANCER SCREENING COLORECTAL CANCER SCREENING [facility] Start: 01-03-[address] COLONOGRAPHY [facility] Start: 01-03-2005 DIABETES SCREEN DIABETES SCREEN [facility] Start: 01-03-2005 FECAL OCCULT BLOOD FECAL OCCULT BLOOD [facility] Start: 01-03-2005 SIGMOIDOSCOPY SIGMOIDOSCOPY [facility] Start: 01-03-1995 LIPID SCREEN LIPID SCREEN [facility] Start: 01-03-1982 DTaP/Tdap/Td Vaccines (1 - Tdap) DTaP/Tdap/Td Vaccines (1 - Tdap) [facility] Start: 01-03-1979 Urine microalbumin profile DTAP,TDAP,TD (1 - Tdap) [facility] Start: 01-03-1979 Urine screening for protein Diabetes: Urine Protein Screening [facility] Start: 01-03-1978 HEPATITIS C SCREENING HEPATITIS C SCREENING [facility] Start: 01-03-1978 Hepatitis C screening Hepatitis C Screening [facility] Start: 01-03-1978 HIV SCREENING HIV SCREENING [facility] Start: 01-03-1970 Glaucoma screening Diabetes: Retinopathy Screening [facility] Start: 01-03-1961 MMR Vaccines (1 of 1 - Standard series) MMR Vaccines (1 of 1 - Standard series) [facility] Start: 1960 COVID-19 VACCINE (#1) COVID-19 VACCINE (#1) [facility] Start: 1960 Hemoglobin A1c measurement Diabetes: Hemoglobin A1C [facility] Start: 1960 HIV screening HIV Screening [facility] Start: 1960 Lipid panel Lipid Panel [facility] Start: 1960 Screening for malignant neoplasm of colon [facility] Start: 1960 Thyroid stimulating hormone measurement TSH Level [facility] Start: 1960 Urine screening for protein Diabetes: Urine Protein Screening [facility] Start: 1960 Yearly Adult Physical Yearly Adult Physical [facility] Bacteria identified in Unspecified specimen by Aerobe culture [facility] Comprehensive metabo lic 2000 panel - Serum or Plasma [facility] Microalbumin [Mass/volume] in Urine [facility] End: 08-28-2023 US ABDOMEN LTD US ABDOMEN LTD Radiology Routine Other pancytopenia (HCC) 1 Occurrences starting 07/30/2022 until 08/28/2023 [facility] Work Phone: Comment on above: 1 Occurrences starting 07/30/2022 until 08/28/2023 [facility] Immunizations Immunization Date Immunization Notes Care Provider Fa cility 05-05-2021 Seasonal, quadrivale nt, recombinant, injectable influenza vaccine, preservative free Berny Donovan Work Phone: [place] [address] DO Work Phone: 05-05-2021 influenza virus vacc ine, unspecified formulation Maria M Love MD Work Phone: [facility] Work Phone: 12-13-2020 diphtheria, tetanus toxoids and acellular pertussis vaccine, unspecified formulation Berny Donovan Other [facility] 12-13-2020 diphtheria, tetanus toxoids and pertussis vaccine Berny Donovan Work Phone: [place] [address] DO Work Phone: 03-06-2013 tetanus and diphther ia toxoids, adsorbed, preservative free, for adult use (5 Lf of tetanus toxoid and 2 Lf of diphtheria toxoid) Berny Donovan Other [facility] 05-22-2012 influenza virus vacc ine, unspecified formulation Berny Donovan Work Phone: [facility] 250 DO Work Phone: 05-22-2006 influenza virus vacc ine, unspecified formulation Berny Donovan Work Phone: [facility] 250 DO Work Phone: 05-22-2006 pneumococcal polysaccharide vaccine, 23 valent Berny Donovan Work Phone: [facility] 250 DO Work Phone: Payers Date Payer Category Payer Unknown [id number] 2022 [employer] [facility] [id number] 2022 Unknown [id number] 4b 2021 Unknown 1960 Unknown [id number] 1960 Unknown [id number] 1960 Unknown [id number] 1960 Unknown [id number] 1960 Unknown [id number] 1960 Unknown [id number] 1960 Unknown [id number] 1960 Unknown [id number] 1960 Unknown [id number] 1960 Unknown [id number] 1959 Unknown [id number] Private Health Insurance [id number] Self-pay Self Pay [id number] Unknown [id number] Social History Date Type Detail Facility Start: 06-12-2023 End: 08-15-2024 No illicit drug use No illicit drug use -[facility] 250 DO Work Phone: Comment on above: occasional; quit 2002; Start: 02-09-2021 End: 11-01-2024 Tobacco smoking status NVIS Ex-smoker (finding) [facility] Start: 1960 Sex Assigned At Male F [facility] Start: 06-12-2023 End: 08-15-2024 Sex Assigned At [facility] Start: 07-27-2022 Tobacco smoking stat [facility] Tobacco smoking consumption unknown [facility] Start: 07-27-2022 End: 07-28-2022 Alcohol intake Ex-drinker (finding) [facility] Start: 1960 Sex Assigned At Not on file C [facility] End: 05-22-2002 History of tobacco use Current smoker [facility] End: 05-22-2002 History of tobacco use Cigarette Smoker [facility] History of tobacco use Passive smoker [facility] Start: 07-28-2022 End: 05-17-2023 Tobacco use and exposure Smokeless tobacco non-user [facility] Start: 03-15-2024 End: 08-15-2024 Alcoholic beverage intake Current drinker of alcohol (finding) [facility] Work Phone: Start: 05-17-2023 Alcohol Comment occasional [facility] Work Phone: Start: 03-05-2024 End: 08-15-2024 Exposure to SARS-CoV-2 (event) Not sure [facility] Start: 06-06-2024 End: 10-01-2024 Sex Male (finding) [facility] Tobacco smoking status [facility] Medical Equipment Procedure Code Equipment Code Equipment Origin al Text Equipment Identifier Dates Insertion, pacemaker Dual-chamber implantable defibrillator [id number] [facility] Start: 02-09-2021 Clinical Notes 12-17-2002 to 01-06-2025 Note Date & Type Note Facility 01-06-2025 Evaluation note Diagnosis Onset Date Resolution Chronic HFrEF (heart failure with reduced ejection fraction) acute January 06, 2025 2:31pm DAQUAN (generalized anxiety disorder) acute January 06 2:31pm Hypercholesteremia acute January 06, 2025 2:31pm Hypertension acute January 06, 2025 2:31pm Ischemic cardiomyopathy acute A ugust 2024 2:31pm Screening for colon cancer acute January 06, 2025 2:31pm Screening PSA (prostate specific antigen) acute January 06 2:31pm Type 2 diabetes mellitus with hyperglycemia acute January 06, 2025 2:31pm Wellness examination noneactive Aug 2024 2:31pm Welcome to Medicare preventive visit noneactive January 06 2:31pm [facility] Work Phone: 1(934) 556-683204-29-2025 Evaluation note* Diagnosis Onset Date Resolution Status Admit Date Acute sinusitis acute August, 2024 3:00pm Hypertension acute September 17, 2024 3:00pm Type 2 diabetes mellitus wit h hyperglycemia acute September 17, 2024 3:00pm [facility] [place] Work Phone: [phone] 313-703403-27-2025 History of Present illness Narrative* Maria M Lvoe MD - 08/15/2024 10:40 AM EDT Chief Complaint Patient presents with Follow-up Follow up to discuss echo Results Subjective Darell Jiménez is a 64 y.o. male HPI Patient is in the office for follow-up for history of nonischemic cardiomyopathy and ventricular arrhythmias leading to multiple shocks from AICD. He does not follow-up with EP but he follows up in our office. Previously followed with Dr. Badillo. He had an echocardiogram this week at [facility] at my request which revealed ejection fraction normal at 55%. This is in contrast to the last echo he had in 2017 at 20%. The patient is without any limitations on physical activities. His last AICD discharge was in April 2024. He is currently on amiodarone, digoxin and carvedilol. He reports no orthopnea PND lower extremity edema. 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 He willbe applying for disability which I will support. The findings of the echocardiogram were reviewed with the patient. Assessment/recommendations: 1-malignant ventricular arrhythmias requiring placement of AICD which has been functioning properly. Had multiple shocks in the past which has been suppressed with amiodarone, most recent discharge was in April 2024. 2-history of severe left ventricular systolic dysfunction based on the cardiac catheterization 2016. EF at the time was 20%. Repeat echocardiogram July 2024 showed ejection fraction 55 to 60%. 3-hyperlipidemia on medium intensity statin with atorvastatin under control 4-essential hypertension, currently under control on medical therapy with multiple agents which have been well-tolerated 5-type 2 diabetes managed by PCP, not completely under control 6-class II obesity, weight loss program was discussed with the patient and encouragement for more daily activities 7-high risk medication with amiodarone, patient has been getting his surveillance testing periodically and was advised that from now on his testing will be done with annual basis not every 6 months as far as the x-ray and the PFTs but his blood work will be done every 6 months still. Review of Systems All other systems reviewed and are negative. Vitals: 08/15/24 1054 BP: 122/58 BP Location: Right arm Patient Position: Sitting Pulse: 52 Weight: 141 kg (311 lb) Height: 1.88 m (6' 2 ) EKG done in office today Objective Physical Exam Constitutional: Appearance: Normal appearance. HENT: Nose: Nose normal. Neck: Vascular: No carotid bruit. Cardiovascular: Rate and Rhythm: Normal rate. Pulses: Normal pulses. Heart sounds: Normal heart sounds. Pulmonary: Effort: Pulmonary effort is normal. Abdominal: General: Bowel sounds are normal. Palpations: Abdomen is soft. Musculoskeletal: General: Normal range of motion. Cervical back: Normal range of motion. Right lower leg: No edema. Left lower leg: No edema. Skin: General: Skin is warm and dry. Neurological: General: No focal deficit present. Mental Status: He is alert. Psychiatric: Mood and Affect: Mood normal. Behavior: Behavior normal. Thought Content: Thought content normal. Judgment: Judgment normal. Allergies Fenofibrate and Iodinated contrast media Current Medications Current Outpatient Medications: ALPRAZolam (Xanax) 1 mg tablet, Take 1 tablet (1 mg) by mouth 2 times a day., Disp: , Rfl: aspirin 81 mg EC tablet, Take 1 tablet (81 mg) by mouth once daily., Disp: , Rfl: bumetanide (Bumex) 1 mg tablet, Take 1 tablet (1 mg) by mouth once daily as needed (1-2 tabs as needed with potassium)., Disp: 90 tablet, Rfl: 1 famotidine (Pepcid) 20 mg tablet, Take 1 tablet (20 mg) by mouth once daily., Disp: , Rfl: glipiZIDE XL (Glucotrol XL) 10 mg 24 hr tablet, Take 1 tablet (10 mg) by mouth 2 times a day., Disp: , Rfl: Januvia 50 mg tablet, Take 1 tablet (50 mg) by mouth once daily., Disp: , Rfl: linaGLIPtin (Tradjenta) 5 mg tablet, Take 1 tablet (5 mg) by mouth once daily., Disp: , Rfl: nitroglycerin (Nitrostat) 0.4 mg SL tablet, Place 1 tablet (0.4 mg) under the tongue every 5 minutes if needed for chest pain., Disp: 90 tablet, Rfl: 3 amiodarone (Pacerone) 200 mg tablet, Take 1 tablet (200 mg) by mouth once daily., Disp: 90 tablet, Rfl: 1 atorvastatin (Lipitor) 20 mg tablet, Take 1 tablet (20 mg) by mouth once daily at bedtime., Disp: 90 tablet, Rfl: 3 carvedilol (Coreg) 25 mg tablet, Take 1 tablet (25 mg) by mouth 2 times a day., Disp: 180 tablet, Rfl: 3 clopidogrel (Plavix) 75 mg tablet, Take 1 tablet (75 mg) by mouth once daily., Disp: 90 tablet, Rfl: 2 digoxin (Lanoxin) 125 MCG tablet, Take 1 tablet (125 mcg) by mouth once daily., Disp: 90 tablet, Rfl: 2 lisinopril 5 mg tablet, Take 1 tablet (5 mg) by mouth once daily., Disp: 90 tablet, Rfl: 1 potassium chloride CR 10 mEq ER tablet, Take 2 tablets (20 mEq) by mouth every other day., Disp: 90tablet, Rfl: 2 Assessment/Plan 1. Atherosclerosis of [place] coronary artery of [place] heart without angina pectoris Follow Up In Cardiology Alanine Aminotransferase Aspartate Aminotransferase Basic Metabolic Panel CBC Lipid Panel Thyroid Stimulating Hormone digoxin (Lanoxin) 125 MCG tablet clopidogrel (Plavix) 75 mg tablet Alanine Aminotransferase Aspartate Aminotransferase Basic Metabolic Panel CBC Lipid Panel Thyroid Stimulating Hormone 2. Ischemic cardiomyopathy Basic Metabolic Panel CBC carvedilol (Coreg) 25 mg tablet digoxin (Lanoxin) 125 MCG tablet potassium chloride CR 10 mEq ER tablet Basic Metabolic Panel CBC 3. Ventricular tachycardia (Multi) ECG 12 Lead Thyroid Stimulating Hormone digoxin (Lanoxin) 125 MCG tablet Thyroid Stimulating Hormone 4. Cardiac defibrillator in place 5. Benign essential hypertension digoxin (Lanoxin) 125 MCG tablet lisinopril 5 mg tablet 6. Hyperlipidemia, unspecified hyperlipidemia type Follow Up In Cardiology Alanine Aminotransferase Lipid Panel Alanine Aminotransferase Lipid Panel 7. High risk medication use Aspartate Aminotransferase Basic Metabolic Panel Thyroid Stimulating Hormone Aspartate Aminotransferase Basic Metabolic Panel Thyroid Stimulating Hormone 8. BMI 39.0-39.9,adult 9. Former smoker 10. Atrial fibrillation, unspecified type (Multi) amiodarone (Pacerone) 200 mg tablet 11. Mixed hyperlipidemia atorvastatin (Lipitor) 20 mg tablet clopidogrel (Plavix) 75 mg tablet Scribe Attestation By signing my name below, Nga Frost LPN, Scribe attest that this documentation has been prepared under the direction and in the presence of Maria M Love MD. Provider Attestation - Scribe documentation All medical record entries made by the Scribe were at my direction and personally dictated by me. Ihave reviewed the chart and agree that the record accurately reflects my personal performance of the history, physical exam, discussion and plan. documented in this [facility] Work Phone: [phone] Instructions* Patient Instructions* Nga Melendez LPN - 08/15/2024 10:40 AM EDT Please bring all medicines, vitamins, and herbal supplements with you when you come to the office. Prescriptions will not be filled unless you are compliant with your follow up appointments or have a follow up appointment scheduled as per instruction of your physician. Refills should be requested at the time of your visit. Amiodarone follow up per routine documented in this [facility] Work Phone: [phone] NoteEchocardiology Procedure Exam Date/Time Accession # Ordering Echo Transthoracic 08/12/2024 09:49 EDT [id number] Maria M Love MD Complete CPT code 64664 Reason for Exam (Echo Transthoracic Complete) Ischemic cardiomyopathy I25.5, Z95.810 Report Version: 1 Study ID: [id number] [id number] Adult Echocardiogram Report Name: DARELL JIMÉNEZ Study Date: 08/12/2024, 9: 12 AM Patient Location: [facility] [place](s[place] [facility] [place] 1960 [place]MM/DD/YYYY) Gender: Male Age: 64 Years Height: 187.96 cm BP: 136 / 59 mmHg Weight: 137.894 kg HR: 67 bpm BSA: 2.6 m? Ordering Physician: Maria M Love Referring Physician: Maria M Love Performed By: Ema Thakkar RDCS Reason For Study: Ischemic cardiomyopathy I25.5, Z95.810 History: CAD, LA, Stents x3, HTN Interpretation Summary The left ventricle is normal in size. The left ventricular ejection fraction is normal. Ejection Fraction = 55-60%. E/A reversal consistent with but not diagnostic of poor LV compliance The left atrium is moderately dilated. Mild aortic regurgitation. There is Trace mitral regurgitation. Pacemaker wire seen. There is inferior wall mild hypokinesis Procedure A complete two-dimensional transthoracic echocardiogram was performed (2D, M- mode, spectral and color flow Doppler). Left Ventricle The left ventricle is normal in size. The left ventricular ejection fraction is normal. Ejection Fraction = 55-60%. Echocardiology Report There is inferior wall mild hypokinesis. E/A reversal consistent with but not diagnostic of poor LV compliance. Left Atrium The left atrium is moderately dilated. There is no atrial septal defect. Right Atrium Right atrial size is normal. Right Ventricle The right ventricular systolic function is normal. Aortic Valve The aortic valve is grossly normal. Mild aortic regurgitation. Mitral Valve The mitral valve is grossly normal. There is Trace mitral regurgitation. Tricuspid Valve The tricuspid valve is grossly normal. There is trace tricuspid regurgitation. Pulmonic Valve The pulmonic valve is normal. Trace pulmonic valvular regurgitation. Arteries The aortic root is normal in size. Venous The inferior vena cava is normal in size, and collapses normally with respiration. Effusion There is no pericardial effusion. There is no pleural effusion noted on this exam. Left Ventricle IVSd: 1.17 cm LVIDd: 5.9 cm LVPWd: 1.42 cm LVIDs: 3.8 cm EDV(MOD-sp4): 162.0 ml LVLd ap4: 9.9 cm ESV(MOD-sp4): 68.6 ml LVLs ap4: 8.4 cm EDV(MOD-sp2): 158.0 ml LVLd ap2: 9.9 cm ESV(MOD-sp2): 85.2 ml LVLs ap2: 8.4 cm Right Ventricle TAPSE: 3.2 cm Aortic Valve LVOT diam: 2.23 cm LV V1 max: 87.9 cm/sec LV V1 max P.1 mmHg Ao max P.0 mmHg Ao V2 max: 186.8 cm/sec Tricuspid Valve TR max P.8 mmHg TR max clifford: 248.9 cm/sec Aorta Ao root diam: 2.9 cm Ao Sinus of Valsalva: 2.9 cm Ao Sinotubular Junction: 2.25 cm asc Aorta Diam: 3.3 cm Atria LA dimension: 5.6 cm Diastolic funtion Med Peak E' Clifford: 7.3 cm/sec Lat Peak E' Clifford: 7.1 cm/sec MV dec time: 0.25 sec Echocardiology Report MV E max clifford: 106.0 cm/sec MV A max clifford: 126.0 cm/sec Ao max P.0 mmHg Ao root area: 6.7 cm? Ao root diam: 2.9 cm Ao Sinus of Valsalva: 2.9 cm Ao Sinotubular Junction: 2.25 cm Ao V2 max: 186.8 cm/sec AV VR: 0.47 EMANUEL(V,D): 1.83 cm? EDV(MOD-sp4): 162.0 ml EDV(Teich): 170.4 ml EF(MOD-sp4): 57.7 % EF(Teich): 63.8 % ESV(MOD-sp4): 68.6 ml ESV(Teich): 61.6 ml FS: 35.3 % IVC Diam: 1.84 cm IVSd: 1.17 cm LA dimension: 5.6 cm LV V1 max: 87.9 cm/sec LV V1 max P.1 mmHg LVIDd: 5.9 cm LVIDs: 3.8 cm LVLd ap4: 9.9 cm LVLs ap4: 8.4 cm LVOT area: 3.9 cm? LVOT diam: 2.23 cm LVPWd: 1.42 cm MV A max clifford: 126.0 cm/sec MV dec time: 0.25 sec MV E max clifford: 106.0 cm/sec MV E/A: 0.84 RAP systole: 3.0 mmHg RVDd: 4.3 cm RVIDd/LVIDd: 0.74 RVSP(TR): 27.8 mmHg SV(MOD-sp4): 93.4 ml TAPSE: 3.2 cm TR max P.8 mmHg TR max clifford: 248.9 cm/sec asc Aorta Diam: 3.3 cm E/E' Lat: 14.9 E/E' Med: 14.5 EDV(MOD-sp2): 158.0 ml EF (MOD-bp): 52.6 % EF(MOD-sp2): 46.1 % ESV(MOD-sp2): 85.2 ml LA Vol Index: 31.6 ml/m? Lat Peak E' Clifford: 7.1 cm/sec LVLd ap2: 9.9 cm LVLs ap2: 8.4 cm Med Peak E' Clifford: 7.3 cm/sec Echocardiology Report Electronically signed by: Maria M Love MD 08/13/2024, 6: 29 PM FINAL REPORT Dictated: 08/12/2024 9:12 am Maria M Love MD Signed (Electronic Signature): 08/13/2024 6:29 pm Signed by: Maria M Love MD Transcribed by: HI Technologist: [facility]03-17-2025 [facility] [place] [address] [place] [address] Pulmonary Function Signed Patient: Darell Jiménez MR#: [id number] : 1960 Date of Service:0 08/05/24 Age/Sex: 64 / M ADM Date: 5 Loc: RT Room: Type: [facility] Attending Dr: Maria M Love MD Copies to: DO Sp Russo MD Hassan M Ibrahim, MD, [facility]~ Pulmonary Function Test Complete pulmonary function studies were performed on August 05, 2024 for patientwith diagnosis of long-term high risk medication use. Spirometry was acceptableand reproducible with adequate duration of exhalation. Please refer to the pulmonary function test report for the raw data. SPIROMETRY: Spirometry was performed without bronchodilator studies and reveals an FEV1 to FVC ratio of 89% with an FEV1 of 4.08 liters (102% predicted) and a forced vital capacity of 4.59 liters (86% predicted). LUNG VOLUMES: Measurement of static lung volumes was performed by plethysmography and indicates a total lung capacity of 7.34 liters (92% predicted) with a residual volume which was 104% of predictedand a residual volume to total lung capacity ratio of 37%. DIFFUSION CAPACITY: Single breath diffusion capacity is 23.8 mL/mmHg/min (81% predicted) and is 94%predicted after adjustment for alveolar volume. SUMMARY: These pulmonary function studies do not indicate evidence of an obstructive ventilatory defect. There is no clearance of restriction nor air trapping. Diffusion capacity is low normal and improved after adjustment for alveolar volume which could suggest some component of ventilation/perfusion mismatching. Compared to studies of July 31, 2023 there has been an inconsequential decrease inthe expiratory flow with a 3% decrease in total lungcapacity and an 18% decrease in the single breath diffusion capacity. Note thatthere has been some variability in the single breath diffusion capacity without clear evidence of a significant ongoing trend of declining diffusion capacity. I do not believe an adjustment in medical therapy is clearly warranted on the basis of these studies but may wish to consider more frequent studies to ensure there is not a further trend of declining diffusioncapacity. Clinical correlation is recommended. Transcribed By: TEDDY 08/05/242011 Dictated By: Sp Kendrick MD 08/05/242011 Signed By: 08/05/242014 [facility]02-06-2025 Evaluation note* Diagnosis Onset Date Resolution Status Admit Date Type 2 diabetes mellitus wit h hyperglycemia acute June 27 8:30am Impacted cerumen of right ear noneac tive June 27, 2024 8:30am External otitis of right ear noneact vikki June 27, 2024 8:30am [facility] Work Phone: [phone] Evaluation note* Diagnosis Onset Date Resolution Status Admit Date Type 2 diabetes mellitus wit h hyperglycemia acute June 27 8:30am Impacted cerumen of right ear noneac tive June 27, 2024 8:30am External otitis of right ear noneact vikki June 27, 2024 8:30am Acute sinusitis acute August 3:00pm Hypertension acute September 17, 2024 3:00pm Type 2 diabetes mellitus wit h hyperglycemia acute September 17, 2024 3:00pm [facility] [place] Work Phone: [phone] Evaluation note* Diagnosis Onset Date Resolution Status Admit Date Acute sinusitis acute February 212023 11:34am Ischemic cardiomyopathy acute O ctober 2023 11:34am Type 2 diabetes mellitus wit h hyperglycemia acute March 21 11:34am Laryngitis, acute noneactive March 21, 2024 11:34am [facility] Work Phone: [phone] History of Present illness Narrative* Maria M Love MD - 03/15/2024 3:20 PM EDT Subjective Darell Jiménez is a 64 y.o. male Chief Complaint Follow-up HPI 64-year-old white male who previously followed with Dr. Badillo. The available records were reviewed. He has history of what appears to be nonischemic cardiomyopathy, the last cardiac [id number] by Dr. Boucher revealed minimal coronary disease but the ejection fraction was 20%. The patient has history of malignant ventricular arrhythmias leading to multiple shocks from his defibrillator. This problem has been quiet lately on the amiodarone with no recent device discharges. I could notfind any imaging study to assess ejection fraction since 2017. He is diabetic, with history of hypertension hyperlipidemia. He does not have sleep apnea. 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 He has been compliant with medical therapy. He is scheduled to have blood work this weekend through his PCP. He reports no orthopnea PND lower extremity edema and his physical capabilities seem to be better than ejection fraction of 20%. There is no evidence of recent admission for heart failure. He seemed to have no significant side effect of current medications which are adequately provided, he is on full dose aspirin in addition to Plavix, advised him to take the aspirin down to 81 mg daily. Assessment/recommendations: 1-malignant ventricular arrhythmias requiring placement of AICD which has been functioning properly. Had multiple shocks in the past which has been suppressed with amiodarone with no recent events based on the pacemaker/defibrillator analysis. 2-history of severe left ventricular systolic dysfunction based on the cardiac catheterization 2016. EF at the time was 20%. There has been no further cardiac imaging studies to reassess ejection fraction. Echocardiogram is scheduled and based on the result further advised to be provided with no change in current medications. 3-hyperlipidemia on medium intensity statin with atorvastatin, lipid profile scheduled this coming weekend 4-essential hypertension, currently under control on medical therapy with multiple agents which have been well-tolerated 5-type 2 diabetes managed by PCP apparently is under control 6-class II obesity, weight loss program was discussed with the patient and encouragement for more daily activities 7-high risk medication with amiodarone, patient has been getting his surveillance testing periodically and was advised that from now on his testing will be done with annual basis not every 6 months as far as the x-ray and the PFTs but his blood work will be done every 6 months still. Review of Systems All other systems reviewed and are negative. Vitals: 03/15/24 1516 BP: 126/56 BP Location: Right arm Patient Position: Sitting Pulse: 59 Weight: 138 kg (304 lb) Height: 1.88 m (6' 2 ) EKG done in office today Objective Physical Exam Constitutional: Appearance: Normal appearance. HENT: Nose: Nose normal. Neck: Vascular: No carotid bruit. Cardiovascular: Rate and Rhythm: Normal rate. Pulses: Normal pulses. Heart sounds: Normal heart sounds. Pulmonary: Effort: Pulmonary effort is normal. Abdominal: General: Bowel sounds are normal. Palpations: Abdomen is soft. Musculoskeletal: General: Normal range of motion. Cervical back: Normal range of motion. Right lower leg: No edema. Left lower leg: No edema. Skin: General: Skin is warm and dry. Neurological: General: No focal deficit present. Mental Status: He is alert. Psychiatric: Mood and Affect: Mood normal. Behavior: Behavior normal. Thought Content: Thought content normal. Judgment: Judgment normal. Allergies Fenofibrate and Iodinated contrast media Current Medications Current Outpatient Medications: ALPRAZolam (Xanax) 1 mg tablet, Take 1 tablet (1 mg) by mouth 2 times a day., Disp: , Rfl: amiodarone (Pacerone) 200 mg tablet, Take 1 tablet (200 mg) by mouth once daily., Disp: 90 tablet, Rfl: 1 atorvastatin (Lipitor) 20 mg tablet, Take 1 tablet (20 mg) by mouth once daily at bedtime., Disp: 90 tablet, Rfl: 3 bumetanide (Bumex) 1 mg tablet, Take 1 tablet (1 mg) by mouth once daily as needed (1-2 tabs as needed with potassium)., Disp: 90 tablet, Rfl: 3 carvedilol (Coreg) 25 mg tablet, Take 1 tablet (25 mg) by mouth 2 times a day., Disp: 180 tablet, Rfl: 3 clopidogrel (Plavix) 75 mg tablet, Take 1 tablet (75 mg) by mouth once daily., Disp: 90 tablet, Rfl: 3 digoxin (Lanoxin) 125 MCG tablet, Take 1 tablet (125 mcg) by mouth once daily., Disp: 90 tablet, Rfl: 3 famotidine (Pepcid) 20 mg tablet, Take 1 tablet (20 mg) by mouth once daily., Disp: , Rfl: glipiZIDE XL (Glucotrol XL) 10 mg 24 hr tablet, Take 1 tablet (10 mg) by mouth 2 times a day., Disp: , Rfl: Januvia 50 mg tablet, Take 1 tablet (50 mg) by mouth once daily., Disp: , Rfl: linaGLIPtin (Tradjenta) 5 mg tablet, Take 1 tablet (5 mg) by mouth once daily., Disp: , Rfl: lisinopril 5 mg tablet, Take 1 tablet (5 mg) by mouth once daily., Disp: 90 tablet, Rfl: 3 nitroglycerin (Nitrostat) 0.4 mg SL tablet, Place 1 tablet (0.4 mg) under the tongue every 5 minutes if needed for chest pain., Disp: 90 tablet, Rfl: 3 potassium chloride CR 10 mEq ER tablet, Take 2 tablets (20 mEq) by mouth every other day., Disp: 90tablet, Rfl: 3 aspirin 81 mg EC tablet, Take 1 tablet (81 mg) by mouth once daily., Disp: , Rfl: Assessment/Plan 1. Ventricular tachycardia (Multi) Follow Up In Cardiology ECG 12 Lead XR chest 2 views Complete Pulmonary Function Test (Spirometry/DLCO/Lung Volumes) 2. Left ventricular systolic dysfunction 3. Benign essential hypertension 4. Hyperlipidemia, unspecified hyperlipidemia type 5. Cardiac defibrillator in place Transthoracic Echo Complete 6. Type 2 diabetes mellitus without complication, without long-term current use of insulin (Multi) 7. BMI 39.0-39.9,adult 8. Former smoker 9. Atherosclerosis of [place] coronary artery of [place] heart without angina pectoris Follow Up In Cardiology Follow Up In Cardiology aspirin 81 mg EC tablet 10. Ischemic cardiomyopathy Transthoracic Echo Complete XR chest 2 views Complete Pulmonary Function Test (Spirometry/DLCO/Lung Volumes) 11. Class 2 obesity Scribe Attestation By signing my name below, I, Subha Tate RN , Scribe attest that this documentation has been prepared under the direction and in the presence of Maria M Love MD. Provider Attestation - Scribe documentation All medical record entries made by the Scribe were at my direction and personally dictated by me. Ihave reviewed the chart and agree that the record accurately reflects my personal performance of the history, physical exam, discussion and plan. documented in this [facility] Work Phone: [phone]) [phone] Instructions* Patient Instructions* Subha Judd RN - 03/15/2024 3:20 PM EDT Please bring all medicines, vitamins, and herbal supplements with you when you come to the office. Prescriptions will not be filled unless you are compliant with your follow up appointments or have a follow up appointment scheduled as per instruction of your physician. Refills should be requested at the time of your visit. BMI was above normal measurement. Current weight: 138 kg (304 lb) Weight change since last visit (-) denotes wt loss -11 lbs Weight loss needed to achieve BMI 25: 109.7 Lbs Weight loss needed to achieve BMI 30: 70.8 Lbs Provided instructions on dietary changes Provided instructions on exercise. Pacemaker/Defibrillator follow up per routine Aspirin 81 mg daily can get over the counter Chest xray and breathing test in July Get echo done Have copies of blood work sent to our office documented in this [facility] Work Phone: [phone]) [phone] Evaluation note* Encounter Date Diagnosis Assessment Notes Treatment Notes Treatment Clinical Notes Mar, DAQUAN (generalized anxiety disorder) (ICD-10 - F41.1) [employer] Other 08-22-2023 Evaluation note* Encounter Date Diagnosis Assessment Notes Treatment Notes Treatment Clinical Notes Dec, Foot abscess, left (ICD-10 - L02.612) Continue soaking in warm water. Elevate and continue antibiotics until Podiatry appt. Dec, Type 2 diabetes mellitus with diabetic polyneuropathy, without long-term current use of insulin (ICD-10 - E11.42) This patient is following a comprehensive diabetic treatment plan. They are checking their feet daily for calluses and nonhealing ulcers. They are being seen for yearly dilated eye examinations. Goals: SBP less than 130, LDL less than 100, FBS less than 140, AC and A1C less than 7%. They are checking their BS daily, will which are reviewed at the office visit. Continue regular routine monitoring of A1C,] Microalbumin, Dilated eye exam and Foot exam [facility] Other 08-15-2023 Evaluation note* Encounter Date Diagnosis Assessment Notes Treatment Notes Treatment Clinical Notes Dec, Foot abscess, left (ICD-10 - L02.612) Soak in warm water daily. Cleanse w/ soap and water. Restart Antibiotics f/u Dr. Mcnair Dec, Type 2 diabetes mellitus with diabetic polyneuropathy, without long-term current use of insulin (ICD-10 - E11.42) Inspect feet daily for cuts and calluses.Recommend diabetic shoes and inserts to prevent callus formation.Fall precautions. [facility] Other 04-20-2023 Evaluation note* Encounter Date Diagnosis Assessment Notes Treatment Notes Treatment Clinical Notes Aug, DAQUAN (generalized anxiety disorder) (ICD-10 - F41.1) [facility] Other 03-19-2023 Evaluation note* Diagnosis Other pancytopenia (HCC)- Primary Other pancytopenia Anemia of chronic renal failure, stage 3a (HCC) documented in this encounter [facility] Reason for referral (narrative)* Diagnostic Procedure Only (Routine) - Pending Review Specialty Diagnoses / Procedures Referred By Steve jha Referred To Contact US IMAGING Diagnoses Other pancytopenia (HCC) Anemia of chronic renal failure, stage 3a (HCC) Procedures US ABD SPLEEN US ABDOMINAL REAL TIME W/IMAGE LIMITED Trey Schmitz MD [address] [place] [address] [place] [address] Us Imaging Referral ID Status Reason Start Date Expiration Date Visits Requested Visits Authorized [id number] Pending Review Auto-Generat ed Referral 08/04/2022 08/27/2023 1 1 [facility]03-13-2023 Miscellaneous Notes* Telephone Encounter - Ania Baez RN - 08/01/2022 8:53 AM EDT Thank you Ania Baez RN * Telephone Encounter - Shanthi Madrid - 08/01/2022 8:50 AM EDT Orders faxed to [facility] August 01, 2022 8:50 AM Shanthi Madrid * Telephone Encounter - Ania Baez RN - 08/01/2022 8:39 AM EDT Ang/Pao/Chloe- Enmanuel for Jabari today. It looks like this order was placed and signed. I was not sure if you were able to see this or if there was something more that needed done. Thanks. Ania Baez RN * Telephone Encounter - Trey Schmitz MD - 07/30/2022 12:56 PM EST Thank you. * Telephone Encounter - Jabari Otero RN - 07/29/2022 11:03 AM EST NELSON: Order pending for Abd limited US, please add region of interest and sign. Jabari Otero RN * Telephone Encounter - Jabari Otero RN - 07/29/2022 11:02 AM EST Images from the original note were not included. Saadia Schmitz MD; Mary Jane Beckman Sec; Shanthi Madrid; Jabari Otero RN Per [facility], We need two orders. One for the spleen and one for the liver. Its two tests. Could you please put the other order in and then we can fax? Thanks, Chris [facility] Instructions* Patient Instructions* Trey Schmitz MD - 07/28/2022 4:18 PM EST US abdomen - liver / spleen Labs same date RTC in 2-3 weeks to review. [facility] History of Present illness Narrative* Trey Schmitz MD - 07/28/2022 3:37 PM EST Images from the original note were not included. NAME: Darell Jiménez [facility] NO.: [id number] DATE OF SERVICE: July 28, 2022 Referring Provider: Berny Donovan Consultation requested by Dr. Donovan for an opinion regarding Mr. Darell Jiménez, and my final recommendations will be communicated back to the requesting physician by way of shared medical record or letter via US mail. Additional Clinicians involved in Darell Jiménez's care: DIAGNOSIS: Pancytopenia ASSESSMENT: 62 year old with chronic pancytopenia that appears to be slightly worse over the past few years but originates back to 2008. Given his other medical problems including obstructive sleep apnea, diabetes and heart failure, I suspect that he has hypersplenism. I could not find any abdominal imaging and so, we will obtain ultrasound. PLAN: US abdomen - liver / spleen Labs same date RTC in 2-3 weeks to review. HPI: CASE HISTORY: Reverse Chronological Order 06/18/2022 CBC: 2.3 > 12.7/35.5 < 107 02/09/2021 CBC: 2.7 > 13.7/39.8 < 105 normal white blood cell count differential 01/27/2021 CBC: 3.0 > 13.9/40.4 < 130 normal white blood cell count differential 02/01/2020 CBC: 3.1 > 12.9/37.7 < 112 normal white blood cell count differential 01/2020 Pancytopenia 30 + years ago - ruptured appendix Initial Visit, July 28, 2022: Darell Jiménez presents today Hematology and Oncology evaluation. He is a 62 year old male who was referred for progressive pancytopenia. It appears that his counts have been chronically decreased since 2008 however they appear to be exacerbated at this time. Patient has a history of vascular heart disease, hypertension, hyperlipidemia type 2 diabetes, obstructive sleep apnea he also has stage IIIa chronic kidney disease. In addition he has heart failure with decreased ejection fraction. REVIEW OF SYSTEMS Per HPI and otherwise negative by full review of organ systems. ECOG PERFORMANCE STATUS: 0 PHYSICAL EXAMINATION: Vitals: BP 133/61 Pulse 64 Temp (Src) 97.9 (Temporal) Resp 18 Ht 6' 2 (1.88m) Wt 315 lb 12.8 oz (143.2kg) SpO2 98% BMI 40.53 kg/(m^2). Body surface area is 2.73 meters squared. Exam limited to gross visualization where appropriate due to COVID-19. Gen.: This is an age-appropriate patient in no acute distress. Head: Appears atraumatic with no visible lesions. Eyes: Pupils equally round and reactive to light, extraocular muscles are intact. Neck: Supple. Mouth: Masked. Respiratory: Appears to be respiring comfortably. Neurologic: Nonfocal to gross visualization. Alert and oriented 3. Psychiatric: No evidence of inappropriate anxiety or depression. Skin: Visible areas of skin without rash, lesions, wounds or petechiae. ALLERGIES: ALLERGIES Allergen Reactions Amoxicillin Unknown Doxycycline Hyclate Unknown Tricor [Fenofibrate* Unknown MEDICATIONS: POTASSIUM ORAL Take by mouth. bumetanide (BUMEX) 1 mg tablet Take 1 mg by mouth once daily. nitroglycerin sublingual (NITROQUICK) 0.4 mg SL tablet Dissolve 0.4 mg under the tongue every 5 minutes as needed for chest pain. ALPRAZolam (XANAX) 1 mg tablet Take 1 mg by mouth twice daily as needed. For Anxiety amiodarone (PACERONE) 200 mg tablet carvedilol (COREG) 25 mg tablet clopidogrel (PLAVIX) 75 mg tablet digoxin (LANOXIN) 125 mcg (0.125 mg) tablet glipiZIDE (GLUCOTROL) 10 mg tablet lisinopril (ZESTRIL, PRINIVIL) 5 mg tablet KLOR-CON M10 10 mEq tablet famotidine (PEPCID) 20 mg tablet Take 20 mg by mouth twice daily. aspirin 81 mg cap Take by mouth. linaGLIPtin (TRADJENTA) 5 mg tab Take 5 mg by mouth once daily. atorvastatin (LIPITOR) 20 mg tablet (Patient not taking: Reported on 07/28/2022) JANUVIA 50 mg tablet (Patient not taking: Reported on 07/28/2022) baclofen (LIORESAL) 10 mg tablet Take 10 mg by mouth three times daily. (Patient not taking: Reported on 07/28/2022) LABORATORY VALUES: No results found for: WBC, RBC, HB, HCT, MCV, MCH, MCHC, RDWCV, PLT, MPV, GLUC, BUN, CREAT, NA, K, CHLOR, CO2, TPROT, ALB, CA, ALKPHOS, TBILI, AST, ALT, CHOL, TG, BETAMM DIAGNOSIS: (D61.818) Other pancytopenia (HCC) (primary encounter diagnosis) Plan: US ABD SPLEEN, ERYTHROPOIETIN/EPO, LD LACTATE DEHYDRO, CBC + DIFF, COMP METABOLIC PANEL (N18.31, D63.1) Anemia of chronic renal failure, stage 3a (HCC) Plan: US ABD SPLEEN, ERYTHROPOIETIN/EPO, LD LACTATE DEHYDRO, CBC + DIFF, COMP METABOLIC PANEL PAST MEDICAL HISTORY Diagnosis Date Arteriosclerotic heart disease Chronic systolic CHF (congestive heart failure) (HCC) CKD (chronic kidney disease) Essential hypertension Generalized anxiety disorder Hyperlipidemia Obstructive sleep apnea Pancytopenia (HCC) Type 2 diabetes (HCC) PAST SURGICAL HISTORY Procedure Laterality Date DEFIBRILLATOR SURGERY STENT Social History Tobacco Use Smoking status: Former Types: Cigarettes Passive exposure: Past Smokeless tobacco: Never Substance Use Topics Alcohol use: Not Currently Drug use: Not Currently FAMILY HISTORY Problem Relation Age of Onset Cancer Mother Heart disease Mother Cancer Sister I spent a total of 45 minutes on the date of the service which included preparing to see the patient, [id number] patient care, completing clinical documentation, obtaining and/or reviewing separately obtained history, performing a medically appropriate examination, counseling and educating the pat ient/family/caregiver, ordering medications, tests, or procedures, and independently interpreting results (not separately reported). Trey Schmitz MD, CPE Hematology and Oncology Services Provided at: [place], [place] CC: Berny Donovan ([facility]) [address] [facility] [address] Berny Donovan, [address] [facility] [id number] documented [facility] Reason for referral (narrative)* Reason 07/28/22 Referral for progressive pancytopenia Diagnosis 1 Pancytopenia (D61.81 8) Referral Organization [facility] Janina wilson Referring Provider First Name Berny Referring Provider Last Name Janina Referring Provider Specialty Internal Me hannah Referred Organization [facility] Referred Provider Rajeev Handy Referred Address [address] [place] [address] [place],[address] Referred Provider Specialty Hematology/O ncology Referral Priority Routine Referral Appointment Date 2022-07-28 General Notes This patient is yovanny richmond referred for progressive pancytopenia. He completed his initial wellness examination, earlier this year, with routine labs ordered. His CBC results revealed a decreased WBC, Hgb and Platelet count. His differential revealed slightly decreased neutrophils and elevated monocytes with no immature or atypical cells noted. I was able to find a CBC from 2008, which also revealed decrease in WBC, Hgb and platelet count, but to a much lesser degree. Aisha Robledo 07/08/2022 08:44:24 AM >received today, labs and notes attached, along with insurance card. referral faxed Aisha Robledo 07/15/2022 08:49:03 AM >faxed first attempt letter. nothing in [employer] Aisha Robledo 07/15/2022 12:32:36 PM >received fax back that messages were left. will follow up with patient. Aisha Robledo 07/19/2022 02:19:59 PM >called and left message with patient. will continue to follow up Aisha Robledo 07/19/2022 02:24:04 PM >spoke with patient, and referral needed to go to [facility] off [address]. referral faxed there. Aisha Robledo 07/26/2022 12:26:46 PM >faxed first attempt letter Aisha Robledo 07/28/2022 09:32:08 AM >received fax with appt date and time Clinical Notes Reed is without compl aints. He denies change in appetite, weight loss, fever, chills or night sweats. He denies excessive bruising, epistaxis, hematuria, melena or hematochezia. He has a history of ASHD, atrial fibrillation, T2DM, ischemic dilated cardiomyopathy, WILLEM, HTN, HLD and CVI. [facility] Other 02-27-2023 Evaluation note* Encounter Date Diagnosis Assessment Notes Treatment Notes Treatment Clinical Notes Jun, Farrukhp (ICD-10 - R06.6) [facility] Other 01-13-2023 Evaluation note* Encounter Date Diagnosis Assessment Notes Treatment Notes Treatment Clinical Notes May, Generalized anxiety disorder (ICD-10 - F41.1) [facility] Other 07-29-2003 History of Present illness Narrative* Patient returns in follow-up of problems as noted. In the interim he had 1 defibrillator shock. This was discussed in tremendous detail. In the past we had always presume that shocks were associated with ischemia. Detailed review of his chart demonstrates that we done multiple heart catheterizations over the last 20 years each 1 after a cardiac arrest and/or defibrillator shock. Although the first time said shocks were associated with blockage he has had 3 heart catheterizations in a row with minimal disease and is excellent coronary artery patency that would suggest that reassessment, again,of his coronary disease is unnecessary. He understands and agrees. We note that his hypertension diabetes and hyperlipidemia are well controlled. He continues to diet and lose weight and he was congratulated in this regard. * We discussed and reviewed in great detail his defibrillator checks. They demonstrate satisfactory device performance and what I believed to be no need for further adjustments in treatment of his arrhythmia or heart failure management. Because of all the above he will be seen in 6 months. [facility] [address] DO Work Phone: Evaluation + Plan note No data available for this section [facility] Evaluation noteNo assessment information available [facility] Work Phone: Evaluation noteNo InformationNort Soapets Other Evaluation note* Diagnosis Other pancytopenia (HCC)- Primary Other pancytopenia [facility] Diagnosis Onset Date Resolution Status Chronic HFrEF (heart failure with reduced ejection fraction) acute DAQUAN (generalized anxiety disorder) acute Hypercholesteremia acute Hypertension acute Ischemic cardiomyopathy acut e Screening for colon cancer a cute Type 2 diabetes mellitus with hyperglycemia acute Wellness examination noneact vikki [facility] Work Phone: Evaluation note* Diagnosis Ventricular tachycardia (Multi)- Primary Paroxysmal ventricular tachycardia Left ventricular systolic dysfunction Benign essential hypertension Essential hypertension, benign Hyperlipidemia, unspecified hyperlipidemia type Cardiac defibrillator in place Automatic implantable cardiac defibrillator in situ Type 2 diabetes mellitus without complication, without long-term current use of insulin (Multi) BMI 39.0-39.9,adult Former smoker Personal history of tobacco use, presenting hazards to health Atherosclerosis of [place] coronary artery of [place] heart without angina pectoris Ischemic cardiomyopathy Other specified forms of chronic ischemic heart disease Class 2 obesity documented in this encounter [facility] Work Phone: Evaluation note* Diagnosis Onset Date Resolution Status Acute sinusitis acute Ischemic cardiomyopathy acut e Type 2 diabetes mellitus with hyperglycemia acute Laryngitis, acute noneactive [facility] Work Phone: Evaluation note* Diagnosis Class 2 obesity- Primary Atherosclerosis of [place] coronary artery of [place] heart without angina pectoris Ischemic cardiomyopathy Other specified forms of chronic ischemic heart disease Ventricular tachycardia (Multi) Paroxysmal ventricular tachycardia Cardiac defibrillator in place Automatic implantable cardiac defibrillator in situ Benign essential hypertension Essential hypertension, benign Hyperlipidemia, unspecified hyperlipidemia type High risk medication use BMI 39.0-39.9,adult Former smoker Personal history of tobacco use, presenting hazards to health Paroxysmal atrial fibrillation (Multi) Atrial fibrillation Mixed hyperlipidemia documented in this encounter [facility] Work Phone: Evaluation note* Diagnosis Onset Date Resolution Status Admit Date Chronic HFrEF (heart failure with reduced ejection fraction) acute January 06, 2025 2:31pm DAQUAN (generalized anxiety disorder) acute January 06 2:31pm Hypercholesteremia acute January 06, 2025 2:31pm Hypertension acute January 06, 2025 2:31pm Ischemic cardiomyopathy acute A ugust 2024 2:31pm Screening for colon cancer acute January 06, 2025 2:31pm Screening PSA (prostate spec ific antigen) acute January 06 2:31pm Type 2 diabetes mellitus wit h hyperglycemia acute January 06 2:31pm Wellness examination noneactive Augu 2024 2:31pm Welcome to Medicare preventi ve visit noneactive January 06 2:31pm [facility] Work Phone: History general Narrative - Reported* Type Description Date Medical History generalized anxiety disorder Medical History sensorineural hearing loss, bila teral Medical History type 2 diabetes tom itus with hyperglycemia without rn long term care current use of insulin Medical History arteriosclerotic heart disease Medical History eustachian salpingitis, right Medical History essential hypertension Medical History type 2 diabetes tom itus with stage 3A chronic kidney disease without rn long term care current use of insulin Medical History ischemic dilated cardiomyopathy Medical History hyperlipidemia Medical History obstructive sleep apnea Medical History chronic systolic CHF Medical History 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 In the interim he said no angina or anginal-likesymptomatology and no heart failure symptoms. He had some ventricular arrhythmias and these are documented on recent defibrillator checks. Device management and device behavior is adequate and appropriate because of this no reprogramming or adjustments was made. Body mass index was discussed. He isbeen losing weight. Because of his weight loss there appears to be some protrusion and/or movement of his defibrillator. It is basically tilted and pointing upward. He cannot be repositioned. I advised him that for the time being to simply try to put up with it. He was educated, though, that if he experiences any erosion inflammation or breakdown of the skin he should contact me emergently because intervention may prove to be necessary. Other problems are discussed and reviewed in detail he agrees to continue as before.-[facility] [address] DO Work Phone: History of Present illness NarrativePatient returns in follow-up of problems as noted. In the interim he is done well. He denies anginaor anginal equivalent symptomatology pertaining to his coronary artery disease. His blood pressure diabetes and hyperlipidemia all appear to be adequately treated and his ischemic cardiomyopathy is asymptomatic and/or functional class I. He has had no ventricular tachyarrhythmias demonstrated on his recent device check although he did have a lifesaving shock within the last year. He advises me that he continues to suffer from anxiety particularly at bedtime and finds it difficult to sleep at night because of his arrhythmia history. He requests a prescription for anxiolytic medication, as before. I pointed out to him that there is been a change in our policy and he will have to be seen every3 months in order to achieve such a refill and also we have to enter into an agreement that the drugs will not be abuse or diverted and he will also have to be screened once a year for the use of this medication. He appears willing to do self and because of this the medication is provided, and OARRS report performed, and his agreement will be documented in a signed contract regarding the use of these medications.[facility] DO Work Phone: History of Present illness NarrativePatient returns for follow-up of problems as noted. He is doing well. He has managed to keep off about 75 pounds of weight and he was congratulated in this regard. He has further ambitious weight loss goals and he was encouraged to pursue them. In the event that his blood pressure gets low he was encouraged to call and we would further downgrade and/or downwardly adjust his medical therapy. Presently it appears his hypertension hyperlipidemia and diabetes are well controlled. He has no other symptoms of coronary disease to proceed his diagnosis and subsequent intervention. Defibrillator checks are reviewed and found to be satisfactory. He has no manifestations of cardiomyopathy or heart failure because of all the above we will proceed as notedLong Prairie Memorial Hospital and HomeNodaway 250 DO Work Phone: Hospital Discharge instructions No data available for this section [facility] Progress note No data available for this section [facility] Reason for referral (narrative)* Diagnostic Procedure Only (Routine) - Pending Review Specialty Diagnoses / Procedures Referred By Steve t Referred To Contact US IMAGING Diagnoses Other pancytopenia (HCC) Procedures US ABDOMEN LTD US ABDOMINAL REAL TIME W/IMAGE LIMITED Trey Schmitz MD [address] [place] [address] [place] [address] Us Imaging Referral ID Status Reason Start Date Expiration Date Visits Requested Visits Authorized [id number] Pending Review Auto-Generat ed Referral 07/30/2022 08/28/2023 1 1 [facility] for [facility] (narrative)No reason for referral information availableSelect [facility] Work Phone: Summary Purpose Family History No Family History Records FoundUnknown Family Member Name Dates Details Family history of coronary a rtery disease: Mother(V17.3, Z82.49) Status:Active No pertinent family history: Father, Sister, Brother(V49.89, Z78.9) Status:Active Unknown Family Member Name Dates Details Family history of coronary a rtery disease: Mother(V17.3, Z82.49) Status:Active No pertinent family history: Father, Sister, Brother(V49.89, Z78.9) Status:Active Unknown Family Member Name Dates Details Family history of coronary a rtery disease: Mother(V17.3, Z82.49) Status:Active No pertinent family history: Father, Sister, Brother(V49.89, Z78.9) Status:Active Unknown Family Member Name Dates Details No pertinent family history: Father, Sister, Brother(V49.89, Z78.9) Status:Active Family history of coronary a rtery disease: Mother(V17.3, Z82.49) Status:Active Relationship Condition Age at Onset Recorded Date/T shivani Not Specified Cerebrovascular accident (CVA) Unknown Disease of spleen Unknown Hypertension Unknown father Malignant neoplasm Unknown Unknown Family Member Name Dates Details Family history of coronary a rtery disease: Mother(V17.3, Z82.49) Status:Active No pertinent family history: Father, Sister, Brother(V49.89, Z78.9) Status:Active Unknown Family Member Name Dates Details Family history of coronary a rtery disease: Mother(V17.3, Z82.49) Status:Active No pertinent family history: Father, Sister, Brother(V49.89, Z78.9) Status:Active Unknown Family Member Name Dates Details Family history of coronary a rtery disease: Mother(V17.3, Z82.49) Status:Active No pertinent family history: Father, Sister, Brother(V49.89, Z78.9) Status:Active Unknown Family Member Name Dates Details Family history of coronary a rtery disease: Mother(V17.3, Z82.49) Status:Active No pertinent family history: Father, Sister, Brother(V49.89, Z78.9) Status:Active Unknown Family Member Name Dates Details Family history of coronary a rtery disease: Mother(V17.3, Z82.49) Status:Active No pertinent family history: Father, Sister, Brother(V49.89, Z78.9) Status:Active Unknown Family Member Name Dates Details Family history of coronary a rtery disease: Mother(V17.3, Z82.49) Status:Active No pertinent family history: Father, Sister, Brother(V49.89, Z78.9) Status:Active Unknown Family Member Name Dates Details Family history of coronary a rtery disease: Mother(V17.3, Z82.49) Status:Active No pertinent family history: Father, Sister, Brother(V49.89, Z78.9) Status:Active Unknown Family Member Name Dates Details Family history of coronary a rtery disease: Mother(V17.3, Z82.49) Status:Active No pertinent family history: Father, Sister, Brother(V49.89, Z78.9) Status:Active Unknown Family Member Name Dates Details Family history of coronary a rtery disease: Mother(V17.3, Z82.49) Status:Active No pertinent family history: Father, Sister, Brother(V49.89, Z78.9) Status:Active Unknown Family Member Name Dates Details Family history of coronary a rtery disease: Mother(V17.3, Z82.49) Status:Active No pertinent family history: Father, Sister, Brother(V49.89, Z78.9) Status:Active Unknown Family Member Name Dates Details Family history of coronary a rtery disease: Mother(V17.3, Z82.49) Status:Active No pertinent family history: Father, Sister, Brother(V49.89, Z78.9) Status:Active Relationship Condition Age at Onset Recorded Date/T shivani Not Specified Cerebrovascular accident (CVA) Unknown Disease of spleen Unknown Hypertension Unknown father Malignant neoplasm Unknown Not Specified Heart disease Unknown sister Malignant neoplasm Unknown Relationship Condition Age at Onset Recorded Date/T shivani Not Specified Cerebrovascular accident (CVA) Unknown Disease of spleen Unknown Hypertension Unknown Heart disease Unknown father Malignant neoplasm Unknown sister Malignant neoplasm Unknown Relationship Condition Age at Onset Recorded Date/T shivani mother Cerebrovascular accident (CVA) Unknown Disease of spleen Unknown Hypertension Unknown Heart disease Unknown father Malignant neoplasm Unknown sister Malignant neoplasm Unknown Advance Directives No Advanced Directives Records Found Advance Directive Response Recorded Date/ Time Advance Directives No April 24, 2017 12:30pm Advance Directive Response Recorded Date/ Time Advance Directives No April 24, 2017 11:30am Advance Directive Response Recorded Date/ Time Advance Directives No November 01 7:58am Chief Complaint DARELL JIMÉNEZ is being seen for S/P PCM.DARELL JIMÉNEZ is being seen for a 6 month follow-up of.DARELL JIMÉNEZ is being seen for a 6 month follow-up of.Amiodarone Order sent to [facility] for testing due in [facility] is being seen for a 3 month follow-up of.Amiodarone Order sent to [facility] for testing due in SeptemberDARELL JIMÉNEZ is being seen for a 7 month follow-up of.DARELL JIMÉNEZ is being seen for a 7 month follow-up of. Chief Complaint and Reason for Visit Chief Complaint Admit Date Wellness-HIGH RISK January 06, 2025 2: 31pm Cardiomyopathy February 04, 2025 1:49pm Reason for Visit Admit Date Chronic HFrEF (heart failure with reduce d ejection fraction) January 06, 2025 2:31pm DAQUAN (generalized anxiety disorder) Augus t 2024 2:31pm Hypercholesteremia January 06, 2025 2: 31pm Hypertension January 06, 2025 2: 31pm Ischemic cardiomyopathy January 06 2:31pm Screening for colon cancer January 06, 2025 2:31pm Screening PSA (prostate specific antigen ) January 06, 2025 2:31pm Type 2 diabetes mellitus with hyperglyce alena January 06, 2025 2:31pm Wellness examination January 06, 2025 2 :31pm Welcome to Medicare preventive visit Dec us2024 2:31pm Chief Complaint cardio myopathy cardiomyopathy Chief Complaint cardiomyopathy i47.2 z79.899 Chief Complaint cardiomyopathy i47.2 z79.899 Cardiomyopathy Chief Complaint Cardiomyopathy L97.522 Chief Complaint L97.522 Cardiomyopathy Chief Complaint Cardiomyopathy Chief Complaint L02.612 Cardiomyopathy Chief Complaint L02.612 Cardiomyopathy Cardiomyopathy Chief Complaint Cardiomyopathy Cardiomyopathy Chief Complaint Cardiomyopathy L97.421 Cardiomyopathy Chief Complaint i47.20 z79.899 i47.20 z79.899 Cardiomyopathy Chief Complaint i47.20 z79.899 i47.20 z79.899 Cardiomyopathy Wellness Reason for Visit Chronic HFrEF (heart failure with reduced ejection fraction) DAQUAN (generalized anxiety disorder) Hypercholesteremia Hypertension Ischemic cardiomyopathy Screening for colon cancer Type 2 diabetes mellitus with hyperglycemia Wellness examination Chief Complaint Wellness Cardiomyopathy Reason for Visit Chronic HFrEF (heart failure with reduced ejection fraction) DAQUAN (generalized anxiety disorder) Hypercholesteremia Hypertension Ischemic cardiomyopathy Screening for colon cancer Type 2 diabetes mellitus with hyperglycemia Wellness examination Chief Complaint Cardiomyopathy [phone] hoarseness/nasal drainage Reason for Visit Acute sinusitis Ischemic cardiomyopathy Type 2 diabetes mellitus with hyperglycemia Laryngitis, acute Chief Complaint Admit Date [phone] hoarseness/nasal drainage O ctober 2023 11:34am CC Adult Risk Stratification April 092023 2:16pm Cardiomyopathy June 04, 2024 8 :00am Reason for Visit Admit Date Acute sinusitis March 21, 2024 1 1:34am Ischemic cardiomyopathy March 21 11:34am Type 2 diabetes mellitus with hyperglyce alena March 21, 2024 11:34am Laryngitis, acute March 21, 2024 1 1:34am Chief Complaint Admit Date CC Adult Risk Stratification April 092023 2:16pm Cardiomyopathy June 04, 2024 8 :00am right ear decreased hearing - high risk June 27, 2024 8:30am Chief Complaint Admit Date Cardiomyopathy June 04, 2024 8 :00am right ear decreased hearing - high risk June 27, 2024 8:30am i47.20 i25.5 August 05, 2024 2:4 9pm i47.20 i25.5 August 05, 2024 8:1 2pm Reason for Visit Admit Date Type 2 diabetes mellitus with hyperglyce alena June 27, 2024 8:30am Impacted cerumen of right ear June 272024 8:30am External otitis of right ear June 8:30am Chief Complaint Admit Date right ear decreased hearing - high risk June 27, 2024 8:30am i47.20 i25.5 August 05, 2024 2:4 9pm i47.20 i25.5 August 05, 2024 8:1 2pm HIGH RISK, URI September 17, 2024 3:0 0pm Reason for Visit Admit Date Type 2 diabetes mellitus with hyperglyce alena June 27, 2024 8:30am Impacted cerumen of right ear June 272024 8:30am External otitis of right ear June 8:30am Acute sinusitis September 17, 2024 3:0 0pm Hypertension September 17, 2024 3:0 0pm Type 2 diabetes mellitus with hyperglyce alena September 17, 2024 3:00pm Chief Complaint Admit Date i47.20 i25.5 August 05, 2024 2:4 9pm i47.20 i25.5 August 05, 2024 8:1 2pm HIGH RISK, URI September 17, 2024 3:0 0pm Cough, congestion October 01, 2024 11:04 am Reason for Visit Admit Date Acute sinusitis September 17, 2024 3:0 0pm Hypertension September 17, 2024 3:0 0pm Type 2 diabetes mellitus with hyperglyce alena September 17, 2024 3:00pm Chief Complaint Admit Date UA:Frequency/Burning November 01, 2024 2:2 7pm Wellness-HIGH RISK January 06, 2025 2: 31pm Additional Source Comments (unrecognized sect ion and content) No Status Records FoundNo Status Records FoundNo Status Records FoundNo Status Records FoundNo Status Records FoundNo Status Records FoundNo Status Records FoundNo Status Records Found INFORMATION SOURCE (unrecogn ized section and content) DATE CREATED AUTHOR 12/17/2017 [facility] DATE CREATED AUTHOR AUTHOR'S ORGANIZ ATION 06/22/2022 [facility] DATE CREATED AUTHOR AUTHOR'S ORGANIZ ATION 08/02/2022 [facility] DATE CREATED AUTHOR AUTHOR'S ORGANIZ ATION 12/17/2022 [facility] DATE CREATED AUTHOR AUTHOR'S ORGANIZ ATION 02/23/2023 [facility] DATE CREATED AUTHOR AUTHOR'S ORGANIZ ATION 11/08/2024 Jaleel Robins [facility] ical Center DATE CREATED AUTHOR AUTHOR'S ORGANIZ ATION 01/24/2025 [facility] DATE CREATED AUTHOR AUTHOR'S ORGANIZ ATION 02/06/2025 [facility] Care Teams (unrecognized sec tion and content) Team Status: Active Member Role Status Dates Berny Donovan DO Primary Care Provider Active Team Status: Inactive Member Role Status Dates Berny Donovan DO Primary Care Provide r, Attending Provider Active Start: June 27, 2024 End: June 27, 2024 Team Status: Inactive Member Role Status Dates Berny Donovan DO Primary Care Provider Active Start: August 05, 2024 End: August 05, 2024 Maria M Love MD Attending Provider Active St art: August 05, 2024 End: August 05, 2024 Team Status: Active Member Role Status Dates Berny Donovan DO Primary Care Provider Active Start: August 05, 2024 Maria M Love MD Other Provider Active Start: August 05, 2024 Sp Kendrick MD Attending Provider Active Start: August 05, 2024 Team Status: Active Member Role Status Dates Berny Donovan DO Primary Care Provide r, Attending Provider Active Start: September 04, 2024 Team Status: Inactive Member Role Status Garry Donovan DO Primary Care Provide r, Attending Provider Active Start: September 17, 2024 End: September 17, 2024 Team Status: Active Member Role Status Dates Berny Donovan DO Primary Care Provider Active Start: February 21, 2024 Maria M Love MD Other Provider Active Start: February 21, 2024 Kwasi Rowe MD Attending Provider Active Start: February 21, 2024 Team Status: Active Member Role Status Dates Berny Donovan DO Primary Care Provide r, Attending Provider Active Start: March 16, 2024 Team Status: Inactive Member Role Status Garry Donovan DO Primary Care Provide r, Attending Provider Active Start: March 21, 2024 End: March 21, 2024 Team Status: Inactive Member Role Status Dates Donte Badillo MD Attending Provider Active Team Status: Inactive Member Role Status Dates Rosalio Mcnair DPM Attending Provider Active Team Status: Inactive Member Role Status Dates Berny Donovan DO Primary Care Provider Active Donte Badillo MD Attending Provider Active Team Status: Inactive Member Role Status Dates Rosalio Mcnair DPM Attending Provider Active PHYSICIAN NO FAMILY Primary Care Provider Active Team Status: Active Member Role Status Dates PHYSICIAN NO FAMILY Primary Care Provider Active Team Status: Inactive Member Role Status Dates Donte Badillo MD Attending Provider Active Berny Donovan DO Primary Care Provider Active Loader Demolder Relationship Specialty Start Date End Date Berny Donovan, DO [address] [place] [address] PCP - General Internal Medicine 07/19/22 Loader Demolder Relationship Specialty Start Date End Date Berny Donovan, DO [address] [place] [address] PCP - General Internal Medicine 07/19/22 Loader Demolder Relationship Specialty Start Date End Date Berny Donovan Marc, DO [address] [place] [address] PCP - General Internal Medicine 07/19/22 Team Status: Inactive Member Role Status Dates Berny Donovan DO Primary Care Provider Active Start: July 31, 2023 End: July 31, 2023 Donte Badillo MD Attending Provider Active Start: July 31, 2023 End: July 31, 2023 Team Status: Active Member Role Status Garry Donovan DO Primary Care Provider Active Start: July 31, 2023 Donte Badillo MD Other Provider Active Start: July 31, 2023 Sp Kendrick MD Attending Provider Active Start: July 31, 2023 Team Status: Inactive Member Role Status Garry Donovan DO Primary Care Provider Active Start: August 22, 2023 End: August 22, 2023 Donte Badillo MD Attending Provider Active Start: August 22, 2023 End: August 22, 2023 Team Status: Inactive Member Role Status Garry Donovan DO Primary Care Provide r, Attending Provider Active Start: October 10, 2023 End: October 10, 2023 Team Status: Inactive Member Role Status Garry Donovan DO Primary Care Provider Active Start: November 21, 2023 End: November 21, 2023 Donte Badillo MD Attending Provider Active Start: November 21, 2023 End: November 21, 2023 Team Status: Inactive Member Role Status Dates Berny Donovan DO Primary Care Provider Active Start: February 21, 2024 End: February 21, 2024 Maria M Love MD Attending Provider Active St art: February 21, 2024 End: February 21, 2024 Loader Demolder Relationship Specialty Start Date End Date Berny Donovan MarcDO PCP - General 05/22/99 Team Status: Active Member Role Status Dates Berny Donovan DO Primary Care Provide r, Attending Provider Active Start: April 09, 2024 Team Status: Active Member Role Status Dates Berny Donovan DO Primary Care Provider Active Start: June 04, 2024 Maria M Love MD Other Provider Active Start: June 04, 2024 Kwasi Rowe MD Attending Provider Active Start: June 04, 2024 Loader Demolder Relationship Specialty Start Date End Date Berny Donovan DO [address] [place] [address] [place] [address] PCP - General 05/22/99 Team Status: Inactive Member Role Status Dates Berny Donovan DO Primary Care Provide r, Attending Provider Active Start: October 01, 2024 End: October 01, 2024 Team Status: Inactive Member Role Status Dates Berny Donovan DO Primary Care Provider Active Start: November 01, 2024 End: November 01, 2024 Berny Donovan DO Attending Provider Active Sta rt: November 01, 2024 End: November 01, 2024 Team Status: Inactive Member Role Status Dates Berny Donovan DO Primary Care Provider Active Start: January 06, 2025 End: January 06, 2025 Berny Donovan DO Attending Provider Active Sta rt: January 06, 2025 End: January 06, 2025 Team Status: Active Member Role Status Dates Berny Donovan DO Primary Care Provider Active Start: February 04, 2025 Maria M Love MD Other Provider Active Start: February 04, 2025 Kwasi Rowe MD Attending Provider Active Start: February 04, 2025 Goals (unrecognized section and content) Goals may be documented in a n alternate sectionGoals may be documented in an alternate sectionGoals may be documented in an alternate sectionGoals may be documented in an alternate sectionGoals may be documented in an alternate sectionGoals may be documented in an alternate sectionNo InformationNo InformationNo InformationNo InformationGoals may be documented in an alternate sectionNo InformationNo InformationNo InformationGoals may be documented in an alternate sectionGoals may be documented in an alternate sectionNo InformationNo InformationGoals may be documented in an alternate sectionGoals may be documented in an alternate sectionNo InformationGoals may be documented in an alternate sectionGoals may be documented in an alternate sectionGoals may be documented in an alternate sectionGoals may be documented in an alternate sectionGoals may be documented in an alternate sectionGoals may be documented in an alternate sectionGoals may be documented in an alternate sectionGoals may be documented in an alternate sectionGoals may be documented in an alternate section No data available for this sectionGoals may be documented in an alternate sectionGoals may be documented in an alternate sectionGoals may be documented in an alternate sectionGoals may be documented in an alternate section REASON FOR VISIT (unrecogniz ed section and content) Reason Comments Orders Reason Comments Pancytopenia New patient consulta tion Reason Comments Follow-up 9 months Specialty Diagnoses / Procedures Referred By Steve t Referred To Contact Cardiology Diagnoses Atherosclerosis of [place] coronary artery of [place] heart without angina pectoris Ventricular tachycardia (Multi) Procedures Follow Up In Cardiology Donte Badillo MD McGuinn, William P, MD Retired From Practice Referral ID Status Reason Start Date Expiration Date V isits Requested Visits Authorized [id number] Authorized 06/12/2023 06/11/2024 1 1 Reason Comments Follow-up Follow up to discuss echo Results Specialty Diagnoses / Procedures Referred By Contsolis t Referred To Contact Diagnoses Ventricular tachycardia (Multi) Procedures ECG 12 Lead Maria M Love MD [address] [facility] [address], [place] [id number] Phone: tel: fax: Referral ID Status Reason Start Date Expiration Date V isits Requested Visits Authorized [id number] Authorized 08/15/2024 08/15/2025 1 1 Source Comments (unrecognize d section and content) In the event this informatio n is protected by the Federal Confidentiality of Alcohol and Drug Abuse Patient Records regulations: The Federal rules restrict any use of the information to criminally investigate or prosecute any alcohol or drug abuse patient.[facility] the event this information is protected by the Federal Confidentiality of Alcohol and Drug Abuse Patient Records regulations: The Federal rules restrict any use of the information to criminally investigate or prosecute any alcohol or drug abuse patient.[facility] HospitalIn the event this information is protected by the Federal Confidentiality of Alcohol and Drug Abuse Patient Records regulations: The Federal rules restrict any use of the information to criminally investigate or prosecute any alcohol or drug abuse patient.[facility] FOR RECORDS PERTAINING TO PATIENTS WHO ARE OR HAVE BEEN ENROLLED IN A CHEMICAL DEPENDENCY/SUBSTANCEABUSE PROGRAM, SOME INFORMATION MAY BE OMITTED. This clinical summary was aggregated from multiple sources. Caution should be exercised in using it in the provision of clinical care. This summary normalizes information from multiple sources, and as a consequence, information in this document may materially change the coding, format and clinical context of patient data. In addition, data may be omitted in some cases. CLINICAL DECISIONS SHOULD BE BASED ON THE PRIMARY CLINICAL RECORDS. [facility] [facility]. provides no warranty or guarantee of the accuracy or completeness of information in this document.
[2025-02-06 10:40] LABS: Hematocrit 29.5 % (42.0-54.0); Hemoglobin 9.5 g/dL (14.0-18.0); Mean Corpuscular HGB Conc 32.2 g/dL (29.9-35.2); Mean Corpuscular Hemoglobin 34.9 pg (25.9-34.0); Mean Corpuscular Volume 108.5 fL (80.0-94.0); Platelet Count 91 10^3/uL (150-450); Red Blood Count 2.72 10^6/uL (4.70-6.10); White Blood Count 2.6 10^3/uL (4.0-11.0)
[2025-02-06 11:22] LABS: Microalbum Creatinine Ratio Ur 45.2 mg/g (0.0-29.9)
[2025-02-06 11:22] LABS: Band Neutrophils Absolute 0.1 10^3/uL (0.0-0.3); Basophils Abs Manual 0.00 10^3/uL (0.00-0.10); Basophils Percent Manual 0.0 % (0.2-2.0); Eosinophils Absolute Manual 0.07 10^3/uL (0.00-0.70); Eosinophils Percent Manual 3.0 % (0.9-7.0); Lymphocytes Absolute Manual 0.93 10^3/uL (1.20-3.80); Lymphocytes Percent Manual 36.0 % (20.5-60.0); Monocytes Absolute Manual 0.52 10^3/uL (0.30-0.80); Monocytes Percent Manual 20.0 % (1.7-12.0); Segmented Neut Absolute Manual 0.96 10^3/uL (1.4-6.5); Segmented Neutrophils % Manual 37.0 (43.0-75.0)
[2025-02-06 11:23] LABS: Macrocytosis 2+
[2025-02-06 11:51] LABS: Alanine Aminotransferase 26 U/L (16-63); Albumin Globulin Ratio 0.8; Albumin Level 3.4 g/dL (3.4-5.0); Alkaline Phosphatase 70 U/L (46-116); Anion Gap 9.4; Aspartate Amino Transferase 17 U/L (15-37); Blood Urea Nitrogen 29.0 mg/dL (7.0-18.0); Calcium 8.5 mg/dL (8.5-10.1); Carbon Dioxide 30.2 mmol/L (21.0-32.0); Chloride 108 mmol/L (98-107); Cholesterol 91 mg/dL (<=200); Estimated GFR (African America 57 (>=60 mL/min/1.73m^2); Estimated GFR (Non-African Ame 47 (>=60 mL/min/1.73m^2); Globulin 4.5 g/dL; Glucose 91 mg/dL (74-106); HDL Cholesterol 39 mg/dL (40-60); Potassium 4.6 mmol/L (3.5-5.1); Sodium 143 mmol/L (136-145); Thyroid Stimulating Hormone 0.690 uIU/mL (0.358-3.740); Total Protein 7.9 g/dL (6.4-8.2); Triglycerides 55 mg/dL (<=150); VLDL CHOLESTEROL 11.0 mg/dL
== END 2025-02-06 10:04 | disposition home or self-care (01) ==
LOC: LAB 10:06
PROVIDERS: PCP Internal Medicine; Visit Provider Internal Medicine
DX: E11.65 Type 2 diabetes mellitus with hyperglycemia (principal); E78.00 Pure hypercholesterolemia, unspecified; I10 Essential (primary) hypertension; Z12.5 Encounter for screening for malignant neoplasm of prostate; Z79.899 Other long term (current) drug therapy; R53.83 Other fatigue
CPT/HCPCS: 36415; 80053; 80061; 82043; 82570; 83036; 84443; 85007; 85025; 85027; G0103

== ENCOUNTER 2025-03-05 08:06 | Outpatient (RCR) | payer MEDICARE, OTHER, SELFPAY ==
[2025-03-05 09:04] LABS: Hematocrit 31.9 % (42.0-54.0); Hemoglobin 10.2 g/dL (14.0-18.0); Mean Corpuscular HGB Conc 32.0 g/dL (29.9-35.2); Mean Corpuscular Hemoglobin 34.3 pg (25.9-34.0); Mean Corpuscular Volume 107.4 fL (80.0-94.0); Platelet Count 80 10^3/uL (150-450); Red Blood Count 2.97 10^6/uL (4.70-6.10); White Blood Count 2.3 10^3/uL (4.0-11.0)
[2025-03-05 09:16] LABS: Uric Acid 6.9 mg/dL (3.5-7.2)
[2025-03-05 11:20] LABS: Eosinophils Absolute Manual 0.02 10^3/uL (0.00-0.70); Eosinophils Percent Manual 1.0 % (0.9-7.0); Lymphocytes Absolute Manual 0.98 10^3/uL (1.20-3.80); Lymphocytes Percent Manual 43.0 % (20.5-60.0); Segmented Neut Absolute Manual 0.87 10^3/uL (1.4-6.5); Segmented Neutrophils % Manual 38.0 (43.0-75.0)
[2025-03-05 11:21] LABS: Basophils Abs Manual 0.04 10^3/uL (0.00-0.10); Basophils Percent Manual 2.0 % (0.2-2.0); Monocytes Absolute Manual 0.36 10^3/uL (0.30-0.80); Monocytes Percent Manual 16.0 % (1.7-12.0)
[2025-03-05 11:22] LABS: Macrocytosis 1+
[2025-03-07 14:08] LABS: Albumin 3.6 g/dL (2.9-4.4); Alpha-1-Globulin 0.2 g/dL (0.0-0.4); Alpha-2-Globulin 0.6 g/dL (0.4-1.0); Free Kappa Lt Chains,S 81.9 mg/L (3.3-19.4); Free Lambda Lt Chains,S 52.9 mg/L (5.7-26.3); Gamma Globulin 1.9 g/dL (0.4-1.8); Immunoglobulin A, Qn, Serum 386 mg/dL (61-437); Kappa/Lambda Ratio,S 1.55 (0.26-1.65)
== END 2025-03-21 23:59 | disposition home or self-care (01) ==
LOC: HEMC 08:06
PROVIDERS: PCP Internal Medicine; Visit Provider Internal Medicine Hematology & Oncology
DX: D69.6 Thrombocytopenia, unspecified (principal); D64.9 Anemia, unspecified; D72.819 Decreased white blood cell count, unspecified; E11.9 Type 2 diabetes mellitus without complications; I11.0 Hypertensive heart disease with heart failure; I50.9 Heart failure, unspecified; E78.5 Hyperlipidemia, unspecified; I25.10 Atherosclerotic heart disease of native coronary artery without angina pectoris; Z95.1 Presence of aortocoronary bypass graft; Z95.810 Presence of automatic (implantable) cardiac defibrillator; D61.818 Other pancytopenia; Z79.84 Long term (current) use of oral hypoglycemic drugs; Z87.891 Personal history of nicotine dependence
CPT/HCPCS: 36415; 82784; 82785; 83521; 83615; 84155; 84165; 84550; 85007; 85027; 86334; G0463

== ENCOUNTER 2025-03-25 08:07 | Outpatient (RCR) | payer MEDICARE, OTHER, SELFPAY ==
[2025-03-25 09:05] LABS: Hematocrit 28.4 % (42.0-54.0); Hemoglobin 9.0 g/dL (14.0-18.0); Mean Corpuscular HGB Conc 31.7 g/dL (29.9-35.2); Mean Corpuscular Hemoglobin 34.5 pg (25.9-34.0); Mean Corpuscular Volume 108.8 fL (80.0-94.0); Platelet Count 79 10^3/uL (150-450); Red Blood Count 2.61 10^6/uL (4.70-6.10); White Blood Count 2.1 10^3/uL (4.0-11.0)
[2025-03-25 09:11] LABS: Alanine Aminotransferase 28 U/L (16-63); Albumin Globulin Ratio 0.8; Albumin Level 3.4 g/dL (3.4-5.0); Alkaline Phosphatase 76 U/L (46-116); Anion Gap 10.3; Aspartate Amino Transferase 16 U/L (15-37); Blood Urea Nitrogen 32.0 mg/dL (7.0-18.0); Calcium 8.2 mg/dL (8.5-10.1); Carbon Dioxide 29.0 mmol/L (21.0-32.0); Chloride 107 mmol/L (98-107); Estimated GFR (African America 50 (>=60 mL/min/1.73m^2); Estimated GFR (Non-African Ame 41 (>=60 mL/min/1.73m^2); Globulin 4.3 g/dL; Glucose 156 mg/dL (74-106); Potassium 4.3 mmol/L (3.5-5.1); Sodium 142 mmol/L (136-145); Total Protein 7.7 g/dL (6.4-8.2)
[2025-03-25 09:22] LABS: Iron 64.0 ug/dL (65.0-175.0); Percent Iron Saturation 26.1 %; Total Iron Binding Capacity 245.0 ug/dL (250.0-450.0)
[2025-03-25 09:35] LABS: Ferritin 127.0 ng/mL (26.0-388.0)
[2025-03-25 09:43] LABS: Basophils Abs Manual 0.02 10^3/uL (0.00-0.10); Basophils Percent Manual 1.0 % (0.2-2.0); Eosinophils Absolute Manual 0.02 10^3/uL (0.00-0.70); Eosinophils Percent Manual 1.0 % (0.9-7.0); Lymphocytes Absolute Manual 0.81 10^3/uL (1.20-3.80); Lymphocytes Percent Manual 39.0 % (20.5-60.0); Monocytes Absolute Manual 0.42 10^3/uL (0.30-0.80); Monocytes Percent Manual 20.0 % (1.7-12.0); Segmented Neut Absolute Manual 0.81 10^3/uL (1.4-6.5); Segmented Neutrophils % Manual 39.0 (43.0-75.0)
[2025-03-25 09:44] LABS: Macrocytosis 1+
[2025-03-26 17:08] LABS: Erythropoietin (EPO), Serum 56.2 mIU/mL (2.6-18.5)
== END 2025-04-20 23:59 | disposition home or self-care (01) ==
LOC: HEMC 08:07
PROVIDERS: PCP Internal Medicine; Visit Provider Internal Medicine Hematology & Oncology
DX: D61.818 Other pancytopenia (principal); I50.9 Heart failure, unspecified; E11.9 Type 2 diabetes mellitus without complications; I11.0 Hypertensive heart disease with heart failure; E78.5 Hyperlipidemia, unspecified; M19.90 Unspecified osteoarthritis, unspecified site; Z79.84 Long term (current) use of oral hypoglycemic drugs; Z87.891 Personal history of nicotine dependence
CPT/HCPCS: 36415; 80053; 82668; 82728; 83540; 83550; 85007; 85027; G0463

== ENCOUNTER 2025-04-29 10:53 | Outpatient (RCR) | payer MEDICARE, OTHER, SELFPAY | END 2025-05-21 23:59 | disposition home or self-care (01) | LOC: HEMC 10:53 | PROVIDERS: PCP Internal Medicine; Visit Provider Internal Medicine Hematology & Oncology | DX: D64.9 Anemia, unspecified (principal); D72.819 Decreased white blood cell count, unspecified; D69.6 Thrombocytopenia, unspecified; D61.818 Other pancytopenia; D75.89 Other specified diseases of blood and blood-forming organs; I50.9 Heart failure, unspecified | CPT/HCPCS: G0463 ==